=== PATIENT | male | born 1940 | race Caucasian/White ===

== ENCOUNTER 2023-03-25 12:41 | Inpatient (IN) ==
[2023-03-25] MEDS ORDERED: SODIUM CHLORIDE 0.9% 1,000 ML IV ONE ×2 (12:52→14:06)
--- NOTE | 2023-03-25 12:53 | Emergency Department Note ---
Impression & Plan Atrial fibrillation, new onset Admission ED Provider Note HPI: History obtained from EMS report. 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 Patient's arrived here to the ED to provide further history, she states that yesterday she found the patient on the bedroom floor and she believes he was trying to get out of bed. She was unable to get the patient off the floor and therefore he slept there overnight with a blanket. She was able to get the patient into a wheelchair today and she states when she went upstairs earlier this morning she came back downstairs to find him out of his wheelchair on the floor again. She states that the patient was complaining of a headache earlier in the day. Patient is unable to communicate verbally at baseline, she states he normally communicates by nodding his head and with hand gestures. Patient is noted to be DNR/DNI CODE STATUS according to his . On arrival here to the ED the patient is alert, he is tachycardic in the 120s, ROS: - Per HPI Differential Diagnosis: Urinary tract infection, pneumonia, intracranial hemorrhage, stroke, sepsis, amongst other potential pathologies. *Outpatient medications and allergy history reviewed. PE: General: Alert, patient is able to follow commands, patient is nonverbal HEENT: Normocephalic, trachea midline Eyes: Extraocular eye movement is intact, no scleral erythema Pulmonary: Clear to auscultation bilaterally, no wheezing Cardio: Tachycardic rate with irregular rhythm GI: Abdomen is soft to palpation : No suprapubic tenderness MSK: No evidence of trauma or malformation of the extremities, no edema Skin: No evidence of rash Neuro: Alert, no focal deficits, nonverbal at baseline Psychiatric: Cooperative INDEPENDENT INTERPRETATIONS: clinical research monitor: (As interpreted by myself): - An order was placed for continuous cardiac monitoring - Patient was noted to be in atrial fibrillation with a rate of 125 EKG: (As interpreted by myself): Rate: 128 Rhythm: Atrial fibrillation with RVR Intervals: Within normal limits ST changes: No ST elevation Time: 1413 Chest x-ray: (As interpreted by myself): No acute infiltrate Interventions provided in ED: -IV fluid bolus (2500 cc total) Medical Decision Making: Shortly after the patient arrived IV was established and lab work obtained, patient was placed on playground monitor. Lab work shows a leukocytosis of 14.55, hemoglobin is normal, platelet count is normal, CMP does not show any critical findings, there is a mild creatinine elevation at 1.59 with unclear baseline, lactic acid is elevated 2.8, troponin is elevated at 20.3, procalcitonin is low. Chest x-ray does not show any evidence of pneumonia, EKG per my interpretation shows evidence of atrial fibrillation with elevated rate of 128. No acute ischemic changes are noted. CT imaging of the head does not show any evidence of any acute intracranial hemorrhage, there are findings of likely chronic insult/encephalomalacia in the left frontal lobe per interpreting radiologist. No evidence of acute stroke. Patient was ordered greater than 30 cc/kg of IV fluid given leukocytosis and elevated lactic acid. Urinalysis is pending at the time of admission. Will hold on antibiotics without any known source for infection. Viral panel testing is also pending. Case was discussed with the on-call hospitalist service for [facility], patient's lab work and imaging and presentation were discussed with Monica Carroll NP, and the patient was placed for admission to the service of Dr. Knox. Consultants/Discussions held with other healthcare providers: -Hospitalist service, Dr. Knox Disposition discussion held by myself with: -Patient, at bedside and daughter at bedside Diagnosis: 1. New onset atrial fibrillation with RVR, acute 2. Leukocytosis, acute, nonspecific 3. Lactic acidosis, acute 4. Elevated troponin, acute 5. Creatinine elevation, acute, mild 6. History of neurologic condition, nonverbal 7. Ambulatory dysfunction, chronic Disposition: Admission Nilesh Aragon DO Emergency Medicine Past Med/Surg History Social History Smoking Status: Unknown if ever smoked Feels Safe at Home: Yes Allergies Allergies Allergy/AdvReac Type Severity Reaction Status Date / Time colchicine Allergy Unknown ` Verified 06/08/12 13:06 mold Allergy Unknown ` Verified 06/08/12 13:06 Home Meds Home Medications Medication Instructions Recorded Confirmed Albuterol (Ventolin) 2 puff inhalation QID 5 days ##0 04/16/09 Lisinopril (Zestril) 5 mg PO DAILY ##0 04/16/09 OMEPRAZOLE (PRILOSEC) 20 mg PO DAILY ##0 02/08/10 Simvastatin (Zocor) 40 mg PO QPM ##0 04/16/09 Tamsulosin Hcl (Flomax *) 0.4 mg PO DAILY ##0 04/16/09 [id number] UNT 50,000 unt OR WK ##0 04/18/09 Previous Rx's Medication Instructions Recorded ONDANSETRON (ZOFRAN ODT) 4 mg sublingual Q6H Nausea or 06/05/13 Vomiting ##20 Results & Data (ED) Vital Signs Vital Signs - 24 hr 03/25/23 12:55 03/25/23 13:21 03/25/23 14:00 Temperature 35.9 C L Temperature Source Rectal Pulse Rate 107 H 123 H 131 H Pulse Rate from SpO2 Sensor 92 H Respiratory Rate 19 21 Respiratory Effort / Characteristics Non-Labored Spontaneous Respiratory Depth Normal Respiratory Pattern Regular Blood Pressure 107/22 L Blood Pressure Mean 50 Pulse Oximetry 97 99 Oxygen Delivery Method Room Air Nasal Cannula Oxygen Flow Rate 2 Sepsis Recent Fever Within 48 Hours No Sepsis New/Unexplained Change in Mental Status No Sepsis Action Taken by Nursing Physician Notified 03/25/23 14:05 03/25/23 14:16 03/25/23 14:30 Temperature Temperature Source Pulse Rate 127 H 131 H 121 H Pulse Rate from SpO2 Sensor 132 H 116 H 119 H Respiratory Rate 26 H 16 25 H Respiratory Effort / Characteristics Respiratory Depth Respiratory Pattern Blood Pressure 92/77 L 104/69 89/73 L Blood Pressure Mean 82 80 78 Pulse Oximetry 99 99 94 Oxygen Delivery Method Nasal Cannula Nasal Cannula Nasal Cannula Oxygen Flow Rate 2 2 2 Sepsis Recent Fever Within 48 Hours Sepsis New/Unexplained Change in Mental Status Sepsis Action Taken by Nursing 03/25/23 14:40 Temperature Temperature Source Pulse Rate 125 H Pulse Rate from SpO2 Sensor 132 H Respiratory Rate 23 Respiratory Effort / Characteristics Respiratory Depth Respiratory Pattern Blood Pressure 109/80 Blood Pressure Mean 89 Pulse Oximetry 99 Oxygen Delivery Method Nasal Cannula Oxygen Flow Rate 2 Sepsis Recent Fever Within 48 Hours Sepsis New/Unexplained Change in Mental Status Sepsis Action Taken by Nursing Laboratory Data 03/25/23 13:00 03/25/23 13:00 Lab Results 03/25/23 Range/Units 13:00 WBC 14.55 H (4.8-10.8) K/ul RBC 5.47 (4.70-6.10) M/uL Hgb 16.0 (14.0-18.0) g/dl Hct 47.0 (42.0-52.0) % MCV 85.9 (80.0-100.0) fL MCH 29.3 (25.0-34.0) pg MCHC 34.0 (32.0-36.0) g/dL RDW Std Deviation 41.2 (36.4-46.3) fL RDW Coeff of Kerry 13.2 (11.5-14.5) % Plt Count 256 (130-400) K/uL MPV 10.1 (9.4-12.4) fL Immature Gran % (Auto) 0.3 % Neut % (Auto) 90.8 % Lymph % (Auto) 3.8 % Perry % (Auto) 4.9 % Eos % (Auto) 0.0 % Baso % (Auto) 0.2 % Neut # (Auto) 13.19 H (1.40-6.50) K/uL Lymph # (Auto) 0.56 L (1.20-3.40) K/uL Perry # (Auto) 0.72 H (0.11-0.59) K/uL Eos # (Auto) 0.00 (0.00-0.50) K/uL Baso # (Auto) 0.03 (0.00-0.20) K/uL Immature Gran # (Auto) 0.05 (0.01-0.20) K/uL Sodium 141 (136-145) mmol/L Potassium 4.5 (3.5-5.1) mmol/L Chloride 108 H (98-107) mmol/L Carbon Dioxide 24 (21-32) mmol/L Anion Gap 9 (3-11) BUN 25 H (6-23) mg/dl Creatinine 1.59 H (0.6-1.4) mg/dl Est Cr Clr Drug Dosing 37.7 ml/min Est GFR ( Amer) 45.5 ml/min Est GFR (Non-Af Amer) 39.3 ml/min BUN/Creatinine Ratio 15.7 (10-20) Glucose 80 (70-99(Fasting)) mg/dl Lactate 2.8 H* (0.4-2.0) mmol/L Calcium 10.3 (8.6-10.3) mg/dl Magnesium 2.8 H (1.7-2.4) mg/dl Total Bilirubin 1.2 H (0.2-1.0) mg/dl Direct Bilirubin 0.3 H (0-0.2) mg/dl AST 27 (13-39) U/L ALT 9 (7-52) U/L Alkaline Phosphatase 70 (34-104) U/L Troponin I High Sens 20.3 H (0-20) pg/ml Total Protein 7.1 (6.0-8.3) gm/dl Albumin 4.2 (3.4-5.0) gm/dl Procalcitonin < 0.05 (0-0.5) ng/ml Administered Medications Discontinued Medications Sodium Chloride (Nss) 1,000 mls @ 999 mls/hr IV .Q1H1M ONE Stop: 03/25/23 13:52 Last Admin: 03/25/23 14:00 Dose: 999 mls/hr Documented By: GIRISH Imaging Data Radiologist's Impression: Chest X-Ray 03/25/23 12:51 XR chest 1V portable HISTORY: Sepsis COMPARISON: Chest 06/08/2012. FINDINGS: Low lung volumes with mild elevation of the right hemidiaphragm. This remains unchanged. The heart remains borderline enlarged. No new focal lung consolidations to suggest pneumonia. No evidence for pulmonary edema. No acute fractures identified. Small bibasilar linear densities favor subsegmental atelectasis are scarring. IMPRESSION: No significant change compared to the prior study. No acute process. ACT 112: Negative or not required by law. Electronically signed by: Greg Leon M.D. 03/25/2023 2:[address] 03/25/23 12:51 CT head/brain wo con CLINICAL HISTORY: 83 years-old Male with AMS, found down. Acutely altered mental status. Acute head trauma status post fall TECHNIQUE: Multiple axial CT images of the head were obtained without contrast. A dose lowering technique was utilized adhering to the principles of ALARA. CT DOSE: 547.75 mGy.cm COMPARISON: 06/05/2013. FINDINGS: No acute intracranial hemorrhage, midline shift, intracranial mass, hydrocephalus, territorial ischemia or abnormal extra-axial collection. Involutional changes with chronic microvascular ischemic disease. There is an ill-defined hypodensity of the anterosuperior left frontal lobe on image 22 series 2 which predominantly appears to involve the white matter. Motion degraded exam. Prominent cerebellar atrophy. The calvarium is intact. Mild mucosal thickening of the ethmoid air cells. Mastoid air cells are clear. Small right posterior parietal scalp contusion. IMPRESSION: 1. Small posterior right parietal scalp contusion. No acute intracranial abnormality or calvarial fracture. 2. Involutional changes with chronic microvascular ischemic disease. 3. There is a new hypodense focus in the anterior superior left frontal lobe which is nonspecific and possibly represents encephalomalacia from a chronic insult. ACT 112: Negative or not required by law. The above report was generated using voice recognition software. It may contain grammatical, syntax or spelling errors. Electronically signed by: Prashant Salazar M.D. 03/25/2023 1:40 PM Discharge Plan Visit Data Chief Complaint: Altered Mental Status Stated Complaint: AMS, CONFUSION ED Provider: Nilesh Aragon Discharge Problem: Atrial fibrillation, new onset Forms Stand Alone Forms: My [facility] Prescriptions Prescriptions: No Action Lisinopril (Zestril) 5 MG tablet 5 mg PO DAILY Qty: 0 OMEPRAZOLE (PRILOSEC) 20 MG capsule 20 mg PO DAILY Qty: 0 Simvastatin (Zocor) 40 MG tablet 40 mg PO QPM Qty: 0 Albuterol (Ventolin) inhaler 2 puff Inhalation QID 5 Days Qty: 0 Tamsulosin Hcl (Flomax *) 0.4 MG capsule 0.4 mg PO DAILY Qty: 0 [id number] UNT 50,000 unt OR WK Qty: 0 ONDANSETRON (ZOFRAN ODT) 4 MG tablet 4 mg Sublingual Q6H Qty: 20 0RF Rx Instructions: NAUSEA Referrals Referrals: Kamari Strong MD [Primary Care Provider] -
[2023-03-25 13:32] LABS: Mean Corpuscular Hemoglobin 29.3 pg (25.0-34.0); Mean Corpuscular Volume 85.9 fL (80.0-100.0); Mean Platelet Volume 10.1 fL (9.4-12.4); Platelet Count 256 K/uL (130-400); RDW Coefficient of Variation 13.2 % (11.5-14.5); RDW Standard Deviation 41.2 fL (36.4-46.3); Red Blood Count 5.47 M/uL (4.70-6.10); White Blood Count 14.55 K/ul (4.8-10.8)
--- NOTE | 2023-03-25 13:42 | CT Scan Report ---
CT head/brain wo con CLINICAL HISTORY: 83 years-old Male with AMS, found down. Acutely altered mental status. Acute head trauma status post fall TECHNIQUE: Multiple axial CT images of the head were obtained without contrast. A dose lowering tech nique was utilized adhering to the principles of ALARA. CT DOSE: 547.75 mGy.cm COMPARISON: 06/05/2013. FINDINGS: No acute intracranial hemorrhage, midline shift, intracranial mass, hydrocephalus, territorial ischem ia or abnormal extra-axial collection. Involutional changes with chronic microvascular ischemic disea se. There is an ill-defined hypodensity of the anterosuperior left frontal lobe on image 22 series 2 which predominantly appears to involve the white matter. Motion degraded exam. Prominent cerebellar a trophy. The calvarium is intact. Mild mucosal thickening of the ethmoid air cells. Mastoid air cells are cl ear. Small right posterior parietal scalp contusion. IMPRESSION: 1. Small posterior right parietal scalp contusion. No acute intracranial abnormality or calvarial fra cture. 2. Involutional changes with chronic microvascular ischemic disease. 3. There is a new hypodense focus in the anterior superior left frontal lobe which is nonspecific and possibly represents encephalomalacia from a chronic insult. ACT 112: Negative or not required by law. The above report was generated using voice recognition software. It may contain grammatical, syntax o r spelling errors. Electronically signed by: Prashant Salazar M.D. 03/25/2023 1:40 PM
[2023-03-25 13:46] LABS: Albumin Level 4.2 gm/dl (3.4-5.0); BUN Creatinine Ratio 15.7 (10-20); Bilirubin Direct 0.3 mg/dl (0-0.2); Bilirubin,Total 1.2 mg/dl (0.2-1.0); Calcium 10.3 mg/dl (8.6-10.3); Creatinine Clr Calc Pharmacy 37.7 ml/min; Est GFR (African American) 45.5 ml/min; Est GFR (Non-African American) 39.3 ml/min; Magnesium 2.8 mg/dl (1.7-2.4); Potassium 4.5 mmol/L (3.5-5.1); Total Protein 7.1 gm/dl (6.0-8.3)
[2023-03-25 13:50] LABS: Troponin I High Sensitivity 20.3 pg/ml (0-20)
[2023-03-25 13:56] LABS: Basophils # (auto) 0.03 K/uL (0.00-0.20); Basophils % (auto) 0.2 %; Immature Granulocytes # (auto) 0.05 K/uL (0.01-0.20); Immature Granulocytes % (auto) 0.3 %; Lymphocytes # (auto) 0.56 K/uL (1.20-3.40); Lymphocytes % (auto) 3.8 %; Monocytes # (auto) 0.72 K/uL (0.11-0.59); Monocytes % (auto) 4.9 %; Neutrophils # (auto) 13.19 K/uL (1.40-6.50); Neutrophils % (auto) 90.8 %
[2023-03-25] MEDS ORDERED: METOPROLOL TARTRATE 1 MG/ML VIAL IV STA (14:25)
--- NOTE | 2023-03-25 14:28 | XRay Report ---
XR chest 1V portable HISTORY: Sepsis COMPARISON: Chest 06/08/2012. FINDINGS: Low lung volumes with mild elevation of the right hemidiaphragm. This remains unchanged. Th e heart remains borderline enlarged. No new focal lung consolidations to suggest pneumonia. No eviden ce for pulmonary edema. No acute fractures identified. Small bibasilar linear densities favor subsegm ental atelectasis are scarring. IMPRESSION: No significant change compared to the prior study. No acute process. ACT 112: Negative or not required by law. Electronically signed by: Greg Leon M.D. 03/25/2023 2:26 PM
[2023-03-25] MEDS ORDERED: SODIUM CHLORIDE 0.9% 500 ML IV ONE (14:59)
--- NOTE | 2023-03-25 15:15 | History & Physical Report ---
Date of Service March 25, 2023 Assessment & Plan (1) Weakness: (2) Fall: (3) Cerebellar degeneration: Plan: Patient is 83 y/o M with PMH cerebellar degeneration, CKD III, HTN, dyslipidemia, GERD, asthma, BPH, depression presented to ER from home with c/o being found on the floor yesterday and today T: 35.9 C, P: 107, R: 18, SBP 107, 97% on RA. WBC: 14 CT Head: Small posterior right parietal scalp contusion. No acute intracranial abnormality or calvarial fracture. Involutional changes with chronic microvascular ischemic disease. There is a new hypodense focus in the anterior superior left frontal lobe which is nonspecific and possibly represents enc ephalomalacia from a chronic insult CPK: 702 In ER given 2500ml NSS Nonambulatory at baseline PT/OT eval Fall precautions, aspiration precautions CBC, BMP (4) Elevated lactic acid level: Plan: WBC: 14 procalcitonin: <0.05 Lactate: 2.8-->2.5 Blood cultures pending CXR: No significant change compared to the prior study. No acute process. In ER given 2500ml NSS UA pending Respiratory panel pending Meets SIRS criteria. Unclear source Will start Rocephin, doxycycline empirically Trend lactate IVF CBC in am (5) Atrial fibrillation with RVR: Plan: In ER found to be in atrial fibrillation RVR on EKG Troponin: 20.3-->20.2. Likely elevated secondary to demand ischemia from In ER given metoprolol tartrate 5mg IV with HR improving to 110 Start metoprolol tartrate 12.5mg po BID Monitor on telemetry Echo Trend troponin Holding on IV heparin for now per family request, as well as patient fall risk Cardiology consult (6) CKD (chronic kidney disease), stage III: Plan: Cr: 1.59 (baseline 1.4-1.6) Monitor renal functions, avoid nephrotoxic agents when possible (7) HTN (hypertension): Plan: Hold losartan as BP's on low side currently (8) Dyslipidemia: Plan: Continue simvastatin (9) Asthma: Plan: Not on inhalers Albuterol nebs (10) GERD (gastroesophageal reflux disease): Plan: Continue PPI DVT Prophylaxis Heparin SQ DNR/DNI as per discussion with pt, pt's Follows with [facility] and Dr Strong for routine care Pt was seen and care coordinated with Dr Knox. See addendum History of Present Illness Chief Complaint: "found on floor" Primary Care Provider: Kamari Strong MD Patient is 83 y/o M with PMH cerebellar degeneration, CKD III, HTN, dyslipidemia, GERD, asthma, BPH, depression presented to ER from home with c/o being found on the floor. History obtained from patient's , daughter and outpatient review. 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 Typically is able to transfer himself out of wheelchair. In past patient was able to use his upper body strength and crawl on floor to go to the bathroom. reports yesterday patient was found on the floor. was unable to get him up so she covered with blanket. She is unsure how long he was on floor but states she thinks he slept in bed last night. States patient didn't eat yesterday. He seemed less responsive than usual per family past 2 days. He also more weak than usual. Today reports patient was in wheelchair sitting at table. She left room and went upstairs, when she returned patient patient was lying on the kitchen floor. Reports baseline intermittent cough. Denies noted choking episodes. States eats soft food as has poor dentition. states patient very shaky with eating and holding objects at baseline. Patient receiving [facility]. has not noticed any fever, vomiting, diarrhea, noted SOB, rashes. Denies history of atrial fibrillation. Patient has POLST form that states DNR/DNI, no hydration, no antibiotics, no hospitalization. Discussed with patient's and daughter. reports she wants patient to have medications, antibiotics, IVF however does not want any invasive procedures. Allergies Allergy/AdvReac Type Severity Reaction Status Date / Time colchicine Allergy Unknown ` Verified 06/08/12 13:06 mold Allergy Unknown ` Verified 06/08/12 13:06 Home Medications Medication Instructions Recorded Confirmed Type aspirin 81 mg tablet,delayed 81 mg PO DAILY 03/25/23 03/25/23 History release losartan 50 mg tablet 50 mg PO DAILY 03/25/23 03/25/23 History omeprazole 40 mg capsule,delayed 40 mg PO DAILY 03/25/23 03/25/23 History release simvastatin 40 mg tablet 40 mg PO HS 03/25/23 03/25/23 History Past Med/Surg History Medical History (Updated 03/25/23 @ 16:23 by Monica Carroll PA-C) Depression GERD (gastroesophageal reflux disease) Asthma Dyslipidemia HTN (hypertension) CKD (chronic kidney disease), stage III 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 Surgical History (Updated 03/25/23 @ 16:18 by Monica Carroll PA-C) History of inguinal hernia repair Family History (Updated 03/25/23 @ 16:21 by Monica Carroll PA-C) Other Cancer Neurological disorder Social History (Updated 03/25/23 @ 16:21 by Monica Carroll PA-C) Smoking Status: Never smoker Hx Alcohol Use: No Hx Substance Use: No Feels Safe at Home: Yes Review of Systems Review of Systems: Unobtainable due to cognitive status Physical Exam Physical Exam: PE per Dr Knox Results & Data Results & Data Vital Signs (Past 12 Hours) Vital Signs Temp Pulse Resp BP Pulse Ox O2 Del Method O2 Flow Rate 03/25/23 14:40 125 H 23 109/80 99 Nasal Cannula 2 03/25/23 14:30 121 H 25 H 89/73 L 94 Nasal Cannula 2 03/25/23 14:16 131 H 16 104/69 99 Nasal Cannula 2 03/25/23 14:05 127 H 26 H 92/77 L 99 Nasal Cannula 2 03/25/23 14:00 131 H 21 99 Nasal Cannula 2 03/25/23 13:21 123 H 03/25/23 12:55 35.9 C L 107 H 19 107/22 L 97 Room Air Laboratory Results Short CBC 03/25/23 Range/Units 13:00 WBC 14.55 H (4.8-10.8) K/ul Hgb 16.0 (14.0-18.0) g/dl Hct 47.0 (42.0-52.0) % Plt Count 256 (130-400) K/uL BMP 03/25/23 13:00 Sodium 141 Potassium 4.5 Chloride 108 H Carbon Dioxide 24 BUN 25 H Creatinine 1.59 H Glucose 80 Calcium 10.3 Cardiac Enzymes 03/25/23 Range/Units 15:04 Total Creatine Kinase 702 H (30-223) U/L Liver Function 03/25/23 Range/Units 13:00 Total Bilirubin 1.2 H (0.2-1.0) mg/dl Direct Bilirubin 0.3 H (0-0.2) mg/dl AST 27 (13-39) U/L ALT 9 (7-52) U/L Alkaline Phosphatase 70 (34-104) U/L Albumin 4.2 (3.4-5.0) gm/dl Diagnostic Findings Chest X-Ray 03/25/23 12:51 XR chest 1V portable HISTORY: Sepsis COMPARISON: Chest 06/08/2012. FINDINGS: Low lung volumes with mild elevation of the right hemidiaphragm. This remains unchanged. The heart remains borderline enlarged. No new focal lung consolidations to suggest pneumonia. No evidence for pulmonary edema. No acute fractures identified. Small bibasilar linear densities favor subsegmental atelectasis are scarring. IMPRESSION: No significant change compared to the prior study. No acute process. ACT 112: Negative or not required by law. Electronically signed by: Greg Leon M.D. 03/25/2023 2:[address] 03/25/23 12:51 CT head/brain wo con CLINICAL HISTORY: 83 years-old Male with AMS, found down. Acutely altered mental status. Acute head trauma status post fall TECHNIQUE: Multiple axial CT images of the head were obtained without contrast. A dose lowering technique was utilized adhering to the principles of ALARA. CT DOSE: 547.75 mGy.cm COMPARISON: 06/05/2013. FINDINGS: No acute intracranial hemorrhage, midline shift, intracranial mass, hydrocephalus, territorial ischemia or abnormal extra-axial collection. Involutional changes with chronic microvascular ischemic disease. There is an ill-defined hypodensity of the anterosuperior left frontal lobe on image 22 series 2 which predominantly appears to involve the white matter. Motion degraded exam. Prominent cerebellar atrophy. The calvarium is intact. Mild mucosal thickening of the ethmoid air cells. Mastoid air cells are clear. Small right posterior parietal scalp contusion. IMPRESSION: 1. Small posterior right parietal scalp contusion. No acute intracranial abnormality or calvarial fracture. 2. Involutional changes with chronic microvascular ischemic disease. 3. There is a new hypodense focus in the anterior superior left frontal lobe which is nonspecific and possibly represents encephalomalacia from a chronic insult. ACT 112: Negative or not required by law. The above report was generated using voice recognition software. It may contain grammatical, syntax or spelling errors. Electronically signed by: Prashant Salazar M.D. 03/25/2023 1:40 PM Supervising Physician Co-Signing Physician Notes History and physical exam performed by me 83 year old man with cerebellar degeneration, HTN and other medical problems who was brought in for being found on the ground. Patient is wheel chair bound, able to use upper body to get out of wheel chair He is nonverbal, able to answer by nodding sometimes Has been weak since yesterday. found him on the floor yesterday (she could not remember what time of day that was) and could not get him up to bed. Unclear if he fell or tried to crawl to bathroom as he usually does and laid there ( reported wheel chair cannot get through door so he usually crawls to the bathroom then uses bars to pull himself up) He slept most of the day yesterday. was able to get him to wheelchair to the table, then she went to get something from another room and came back and found him on the floor. No reported fevers, chills, diarrhea reported he had noted headache earlier Has chronic intermittent cough. No oxygen use at home. On exam, General: Ill appearing, in no distress, weak Eyes: PERRL, conjunctivae normal, not pale, anicteric sclerae, EOM intact bilaterally ENMT: External ear and nose normal, oropharynx normal Respiratory: Normal respiratory effort, no respiratory distress, lungs clear to auscultation, no crackles and no wheezes Cardiovascular: Irregular, tachycardia S1 S2 Gastrointestinal (Abdomen): Abdomen is not distended, soft, non-tender to palpation, no guarding, no palpable hepatosplenomegaly, normal bowel sounds Musculoskeletal: No pedal edema Neurologic: Alert, non verbal. Occasionally follows simple commands (baseline per ), moves arms Psychiatric: Alert Labs notable for WBC 14K, Cr 1.59, Lactate 2, CK 702, Trop 20 CT head small posterior right scalp contusion. No acute intracranial abnormality XR chest did not show acute abnormalities Possible fall Afib with RVR Just getting IV lopressor during eval PO lopressor started Patient is high risk fall for anticoagulation Reviewed POLST form with and daughter. maintains he wants to be DNR. She stated they are ok with IV hydration, iv meds, po meds, noninvasive testing would not want anticoagulation Cards c/s TTE PT/OT eval Considering leukocytosis, tachycardia, patient meets SIRS for possible sepsis. Elevated lactate Possible pulm source considering chronic intermittent cough) UA is not suggestive of UTI Follow up infectious workup ceft + doxy for now and deescalate as appropriate IVF I spent a total of 45 minutes coordinating, documenting and providing care for this patient excluding time spent in performance of separately billed services
[2023-03-25] MEDS ORDERED: METOPROLOL TARTRATE 50 MG TAB PO STA (15:47)
[2023-03-25 15:51] LABS: Troponin I High Sensitivity 20.2 pg/ml (0-20)
[2023-03-25] MEDS ORDERED: cefTRIAXone SODIUM 2,000 MG in DEXTROSE 5 % MINI-B 50 ML IV STA (15:58)
[2023-03-25 16:29] LABS: Appearance Urine Clear (Clear); Bilirubin Urine Negative (Negative); Blood Urine Negative (Negative); Color Urine Dark Yellow; Glucose Urine UA Negative (Negative); Ketones Urine 1+ (Negative); Leukocyte Esterase Urine Negative (Negative); Nitrite Urine Negative (Negative); Protein Urine Negative (Negative); Specific Gravity Urine 1.022 (1.000-1.030); Urobilinogen Urine Negative (Negative); pH Urine 5.5 (4.5-7.5)
[2023-03-25] MEDS ORDERED: DOXYCYCLINE HYCLATE 100 MG CAP PO STA (17:23)
[2023-03-25 17:27] LABS: Adenovirus PCR Not Detected (NotDetected); Bordetella parapertussis PCR Not Detected (NotDetected); Bordetella pertussis PCR Not Detected (NotDetected); Chlamydia pneumoniae PCR Not Detected (NotDetected); Coronavirus 229E PCR Not Detected (NotDetected); Coronavirus CoV-2 (COVID19)PCR Not Detected (NotDetected); Coronavirus HKU1 PCR Not Detected (NotDetected); Coronavirus NL63 PCR Not Detected (NotDetected); Coronavirus OC43PCR Not Detected (NotDetected); Human Metapneumovirus PCR Not Detected (NotDetected); Influenza A PCR Not Detected (NotDetected); Influenza B PCR Not Detected (NotDetected); Mycoplasma pneumoniae PCR Not Detected (NotDetected); Parainfluenza Virus 1 PCR Not Detected (NotDetected); Parainfluenza Virus 2 PCR Not Detected (NotDetected); Parainfluenza Virus 3 PCR Not Detected (NotDetected); Parainfluenza Virus 4 PCR Not Detected (NotDetected); Respiratory Syncytial VirusPCR Not Detected (NotDetected); Rhinovirus/Enterovirus PCR Not Detected (NotDetected)
[2023-03-25] MEDS ORDERED: DOXYCYCLINE HYCLATE 100 MG in DEXTROSE 5% MINI-B 100 ML IV SCH (18:15)
[2023-03-25] MEDS ORDERED: POLYETHYLENE (MIRALAX) 17 GM PACK PO PRN (18:15)
[2023-03-25] MEDS ORDERED: SODIUM CHLORIDE 0.9% 1,000 ML IV SCH (18:15)
[2023-03-25] MEDS ORDERED: ONDANSETRON INJ 2 MG/ML 2 ML VIAL IV PRN (18:15)
[2023-03-25] MEDS ORDERED: ALBUTEROL 0.083% NEBU SOLN 3 ML VIAL NEB SCH (19:00)
[2023-03-25] MEDS: DOXYCYCLINE HYCLATE 100 MG CAP PO SCH (20:54)
[2023-03-25] MEDS: METOPROLOL TARTRATE 25 MG TAB PO SCH ×2 (20:55→21:16)
[2023-03-25] MEDS: HEPARIN SOD 5,000 UNIT/0.5 ML VIAL SQ SCH (20:55)
[2023-03-25] MEDS ORDERED: LEVALBUTEROL 1.25 MG/3 ML NEB NEB PRN (20:58)
[2023-03-25] MEDS ORDERED: SIMVASTATIN 40 MG TAB PO SCH (21:00)
[2023-03-25] MEDS ORDERED: METOPROLOL TARTRATE 25 MG TAB PO SCH (21:00)
[2023-03-25] MEDS: METOPROLOL TARTRATE 1 MG/ML VIAL IV PRN (22:34)
--- OUTSIDE RECORDS SUMMARY | 2023-03-25 23:59 | External Medical Summary | Summary of Care ---
Author Name Unknown Organization [facility] Address [address] [place] [place] [address] Phone [phone] Care Team Providers Care Auto Tester Name Role Phone Ligia TURNER MD, Kamari Shell Primary Care Provider [phone] Reason for Visit * Reason Comments [facility]: Maintenance Encounter Details Date Type Department Care Team (Late st Contact Info) Description 02/27/2023 8:30 AM EST [facility] [address] [place] [address] Priya Ma, RN [address] [place] [address] Allergies Active Allergy Reactions Criticality Noted Date Comments Colchicine 06/07/2008 Mold 06/27/2002 documented as of this encounter (statuses as of 02/27/2023) Medications Medication Sig Dispensed Refills Start Date End Date Status ASPIRIN EC LOW STRENGTH TBEC 81 MG ORIndications:Othe r chest pain one by mouth daily 34 5 02/20/2000 Active loratadine (CLARITIN) 10 MG Tablet Take 1 Tablet by mouth daily as needed. 0 Active acetaminophen (TYLENOL) 500 MG Tablet Take 1 Tablet by mouth every 6 hours as needed. 0 Active vitamin b 12 (CYANOCOBALAMIN) 1000 MCG TABS Take 1 Tab by mouth daily. 100 Tab 3 09/15/2019 Active Additional Information Patient taking differently:1,000 mcg Oral Daily(AM),Taking 2500mcg M-W-F, Reported on 06/26/2022 carbamide peroxide (DEBROX) 6.5 % otic solution 5 Drops 2 times a day as needed. Use for at least 5 days in a row prn 0 Active Calcium-Vitamin D 600-125 MG-UNIT Oral Tablet Take 1 Tab by mouth daily. 30 Tab 0 05/17/2020 Active Fluticasone-Salmet brittanie 250-50 MCG/DOSE Inhalation Aerosol Powder Breath Activated (Wixela Inhub) Rinse after INHALE ONE PUFF BY MOUTH ONCE A DAY 180 Each 3 01/22/2021 Active Additional Information Patient not taking.Reported on 12/04/2022 Nitroglycerin 0.4 MG Sublingual Tablet Sublingual (Nitrostat)Indicat ions:Chronic ischemic heart disease every 5 min x 3 as needed chest pain 25 Tablet 3 08/28/2021 Active Simvastatin 40 MG Oral Tablet (Zocor)Indications :Dyslipidemia, goal LDL below 100 Take 1 Tablet by mouth at bedtime. 90 Tablet 1 09/11/2022 Active Omeprazole 40 MG Oral Capsule Delayed Release (PriLOSEC)Indicati ons:Gastroesophage al reflux disease without esophagitis TAKE ONE CAPSULE BY MOUTH TWICE A DAY 180 Capsule 1 11/07/2022 Active Losartan Potassium 50 MG Oral Tablet (Cozaar)Indication s:HTN, goal below 140/90 TAKE ONE TABLET BY MOUTH EVERY DAY 90 Tablet 1 11/07/2022 Active documented as of this encounter (statuses as of 02/27/2023) Active Problems Problem Noted Date Diagnosed Date Depression due to physical illness 01/13/2023 Last Assessment & Plan: Admits he feels sad, adamantly refuses any medication. supportive. Appetite is good. denies he has voiced any suicidal ideation. 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 DYSLIPIDEMIA, GOAL LDL BELOW 100 02/15/2009 Overview: Per Lipid Taxonomy. Last Assessment & Plan: Lipid panel checked in April 2022. Stable. -continue atorvastatin. ADVANCE DIRECTIVE INFORMATION 04/15/2005 Overview: No, Advance Directive brochure offered , patient declined. 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 Cannot ambulate--uses w/c. Good upper body strength, gets himself out of w/c and crawls on floor to bathroom and bedroom. reports this is baseline for years. + tremor--shaking with feeding self. Has portable ramp but pt refuses to leave home. Poor vision [place]. does not leave for long periods. Dgt lives across street to assist. Falls frequently, had PT in past and did not help per . Esophageal reflux Last Assessment & Plan: Stable on omeprazole HTN, goal below 140/90 Last Assessment & Plan: BP stable -continue losartan documented as of this encounter (statuses as of 02/27/2023) Resolved Problems Problem Noted Date Diagnosed Date Resolved Date Impacted cerumen of right ear 11/22/2021 10/15/2022 Last Assessment & Plan: Irrigation performed Otitis externa of right ear 11/22/2021 01/12/2023 Last Assessment & Plan: improved Chronic kidney disease, stage 3a 01/14/2021 11/19/2022 Overview: Per CKD protocol Last Assessment & Plan: GFR 55. Stable. Hypertensive kidney disease with stage 3a chronic kidney disease 12/17/2020 11/19/2022 Overview: Per CKD protocol Last Assessment & Plan: Current CKD Stage: Stage III "RED FLAG" symptoms: o Minimal urine output ("I don't pee as much as I used to") o Swelling of the legs, hands, or feet ("I have to keep my legs elevated all of the time or else they swell", "I can't wear a wedding ring anymore since starting HD because my hands are so swollen") CKD Complications: o HTN Additional Comments o Losartan 50 mg daily Prinzmetal angina 09/27/2016 09/27/2016 Hypertensive kidney disease, stage III 10/09/2014 12/20/2020 Overview: Per CKD protocol #1 Mixed dyslipidemia 9 Overview: Per Lipid Taxonomy. EXT ASTHMA W-O STAT ASTH 11/2022 documented as of this encounter (statuses as of 02/27/2023) Immunizations Name Administration Dates Next Due COVID-19 mRNA, LNP-s, No Pre serve, 2-Dose Series (Pfizer) 08/23/2020,07/26/2020 Pneumococcal Conjugate Vacc, 13 Valent (Prevnar) 09/13/2014 Pneumococcal Polysaccharide PPV23 (Pneumovax) 04/21/2005 Seasonal Influenza, PF, 6 M & above, IM , (FluLaval or Fluzone) 12/26/2019,12/17/2018,05/05/2018 Seasonal Influenza, Quadriva lent Hd (Fluzone Hd) 12/04/2022,01/13/2022 Seasonal Influenza, Split, I IV3, With Preserve, Inj 01/17/2014,02/10/2013,11/06/2011,05/2010,01/08/2010,12/13/2008,01/11/20 08,01/10/2007 12/13/2009 TD, Preservative Free 06/08/2012,04/08/2007 Varicella Zoster Vaccine (Adult) 05/19/2011 documented as of this encounter Social History Tobacco Use Types Packs/Day Years Used Date Smoking Tobacco: Never Smokeless Tobacco: Never Alcohol Use Standard Drinks/Week Comments Yes 0 (1 standard drink = 0.6 oz pur e alcohol) occ beer Sex and Gender Information Value Date Recorded Sex Assigned at Not on file Gender Identity Not on file Sexual Orientation Not on file Job Start Date Occupation Industry Not on file Not on file Not on file documented as of this encounter Last Filed Vital Signs Vital Sign Reading Time Taken Comments Blood Pressure 92/52 02/27/2023 8:42 AM EST Pulse 74 02/27/2023 8:42 AM EST Temperature 35.7 C (96.2 F) 02/27/2023 8:42 AM ES T Respiratory Rate 18 02/27/2023 8:42 AM EST Oxygen Saturation 97% 02/27/2023 8:42 AM EST Inhaled Oxygen Concentration - - Weight - - Height - - Body Mass Index - - documented in this encounter Progress Notes * Priya Ma, RN - 02/27/2023 8:35 AM EST [facility] Truck Crane Operator Helper Visit Date: 02/27/2023 Time: 8:36 AM Name: Renny Paul : 1940 Current Concerns: Pt seen for return RN visit He is primary care at home Pt has been having increased arthritic pain of right hip and down right leg - ? Sciatica Did complete course of prednisone, which reports was ineffective Xrays done and show modest OA of right hip, otherwise normal Discussed getting aspercreme with lidocaine - will try that No other concerns at this time present and provides information Physical Exam: BP 92/52 | Pulse 74 | Temp 35.7 C (96.2 F) | Resp 18 | SpO2 97% Pain 5 Physical Exam Constitutional: General: He is not in acute distress. Cardiovascular: Rate and Rhythm: Normal rate and regular rhythm. Pulses: Normal pulses. Heart sounds: Normal heart sounds. Pulmonary: Effort: Pulmonary effort is normal. Breath sounds: Normal breath sounds. Abdominal: General: Bowel sounds are normal. Palpations: Abdomen is soft. Skin: General: Skin is warm and dry. Neurological: Mental Status: He is alert. Mental status is at baseline. Problems/Symptoms: Review of Systems Constitutional: Positive for fatigue. HENT: Negative. Eyes: Negative. Respiratory: Positive for shortness of breath (ZAZUETA - at baseline). Cardiovascular: Negative. Gastrointestinal: Negative. Musculoskeletal: Positive for arthralgias and gait problem. Skin: Negative. Neurological: Positive for headaches. Psychiatric/Behavioral: Positive for confusion (at baseline). Medication Reconciliation: (See medication list) Does patient take medications as ordered: Yes Patient Well Being: PHQ2/9: No questionnaires available. No change in living situation Pt has multiple falls - he transfers self and often crawls to w/c or bathroom - has done this for years [facility]-10 Completed this Visit: Yes. [facility]-10: Reason Completed: Status post fall [facility]-10 Interventions: Fall education provided, reviewed/provided Fall brochure Advanced Care Planning: POLST. Reinforcement/Education: Educated on home safety: Create a fall proof home Clear floors of clutter, loose wires, throw rugs, and cords. Make sure halls, stairways, and entrances are well lit. Install a nightlight in your bedroom, hallway and bathroom. Install grab bars or handrails in the bathroom and on stairs. Use a non-skid tub/shower mat. Avoid climbing on a chair; instead use a step stool with a high handrail. Keep sidewalks and steps in good repair Keep steps and sidewalks free of snow and ice. Using aids to support and prevent falls If you have poor balance or have fallen in the past, consider additional support such as a cane or walker. Use a cane with good support and that is the proper length for you. Use a walker if a cane doesnt provide enough support. Avoid medications that increase the risk of falling by causing dizziness, change in sensation or slowed reflexes. Certain medicines may cause falls - blood pressure pills, heart medicines, water pills, or sleepingpills. Be sure to understand each medicine that you are taking and any side effects that may occur. Improve your balance and flexibility with muscle strengthening exercises. Ask your health care provider for some exercises that will be right for you. Reinforced safety education and fall prevention. and Reinforced medication regimen. Timing., Dosing., and Purspose. Treatment/Plan: Continue meds as prescribed/reviewed Fall precautions manages meds APAP prn for pain/discomfort Aspercreme with lidocaine for pain Home Interventions Provided: Home Intervention: Other; Evaluation Reinforced current Plan of Care, including self-management and medication regimen Patient's 'Red Flags': Cough/SOB/green or yellow mucus Increased confusion fever Patient Needs to Remember: Call [facility] at with any new or worsening health concerns or problems, red flag symptoms. Referrals Needed: Other none Follow Up: Is there cellular connectivity/connectivity in the home? Yes Does the patient have internet in the home? Yes Patient encouraged to call the intake phone number for all urgent but not emergent issues. Is the patient new to [facility] within the last 30 days? No, Assess appropriateness for upcoming telehealth visits. Cancel telehealth visits & schedule home visit with care project manager/team coach(s)as indicated. Provider is in agreement with Plan of Care: Yes Scheduled to follow up with patient in 2 months. Priya Ma RN 02/27/2023 8:36 AM documented in this encounter Plan of Treatment Upcoming Encounters Date Type Department Care Team (Late st Contact Info) Description 04/24/2023 10:00 AM EST [facility] Visit [facility] [place], [facility] [address] [facility] [place] [address] Priya Ma, RN [address] [facility] [place] [address] 11/25/2023 10:30 AM EDT Office Visit [facility] at Home [address] [place] [address] Angelica Beltran PA-C [address], [place] [phone] Health Maintenance Due Date Last Done Comments Depression Screening 1952 Zoster Vaccines (2 of 3) 07/14/2011 05/19/2011 DTaP,Tdap,and Td Vaccines (1 - Tdap) 06/09/2012 06/08/2012, 04/08/2007 Albumin/Creatinine Ratio 10/03/2017 10/03/2016, 08/07 COVID-19 Vaccine (3 - 2022-24 season) 2022 08/23/2020, 07/26/2020 GFR 07/24/2023 01/23/2023, 08/08, 04/16/2022, Additional history exists HbA1c 01/24/2024 01/23/2023, 08/09/2021 Pneumococcal Vaccine: 65+ Years Completed 09/13/2014, 04/21/2005 Influenza Vaccine (FLU shot) Completed , 01/13/2022, 12/26/2019, Additional history exists GARDASIL-HPV IMMUNIZATION SERIES Aged Out No longer eligible based on patient's age to complete this topic Hepatitis B Aged Out No longer eligi ble based on patient's age to complete this topic MENINGOCOCCAL (MENACTRA/MENVEO) Aged Out No longer eligible based on patient's age to complete this topic documented as of this encounter Medical Devices Not on filedocumented as of this encounter Advance Directives Documents on File Type Date Recorded Patient Canvas Worker Expl anation CASSY 10/13/2018 POLST Care Teams Auto Tester Relationship Specialty Start Date End Date Kamari Strong III, MD [address] [place] [address] PCP - General 09/21/01 documented as of this encounter
--- OUTSIDE RECORDS SUMMARY | 2023-03-26 | External Medical Summary | Summary of Care ---
Author Name Unknown Organization [facility] Address [address] [place] [address] Phone [phone] Care Team Providers Care Animal Geneticist Name Role Phone Ligia TURNER MD, Kamari Shell Primary Care Provider [phone] Reason for Visit * Reason Onset Date Comments Appointment 02/12/2023 Encounter Details Date Type Department Care Team (Late st Contact Info) Description 02/12/2023 Telephone [facility], [place] [address] [place] [address] Services, Scheduling [address] [place] [address] Appointment (/) Allergies Active Allergy Reactions Criticality Noted Date Comments Colchicine 06/07/2008 Mold 06/27/2002 documented as of this encounter (statuses as of 02/12/2023) Medications Medication Sig Dispensed Refills Start Date [...] Patient taking differently:1,000 mcg Oral Daily(AM),Taking 2500mcg M-W-, Reported on 06/26/2022 carbamide peroxide (DEBROX) 6.5 [...] as of this encounter (statuses as of 02/12/2023) Active Problems Problem Noted Date Diagnosed Date [...] pt refuses to leave home. Poor vision [place]. does not leave for long periods. Dgt lives across street to assist. Falls frequently, had PT in past and did not help per . Esophageal reflux Last Assessment & Plan: Stable on omeprazole HTN, goal below 140/90 Last Assessment & Plan: BP stable -continue losartan documented as of this encounter (statuses as of 02/12/2023) Resolved Problems Problem Noted Date Diagnosed Date [...] as of this encounter (statuses as of 02/12/2023) Immunizations Name Administration Dates Next Due COVID-19 mRNA, LNP-s, No Pre serve, 2-Dose Series (CinemaNow) 08/23/2020,07/26/2020 Pneumococcal Conjugate Vacc, 13 Valent (Prevnar) 09/13/2014 Pneumococcal Polysaccharide PPV23 (Pneumovax) 04/21/2005 SEASONAL INFLUENZA, PF, 6 M & Above, IM , (FLULAVAL or FLUZONE) 12/26/2019,12/17/2018,05/05/2018 Seasonal Influenza, Quadriva lent Hd (Fluzone Hd) 12/04/2022,01/13/2022 Seasonal Influenza, Split, I IV3, With Preserve, Inj 01/17/2014,02/10/2013,11/06/2011,11/0 05/2010,01/08/2010,12/13/2008,01/11/20 08,01/10/2007 12/13/2009 TD, Preservative Free 06/08/2012,04/08/2007 Varicella [...] on file documented as of this encounter Miscellaneous Notes * Telephone Encounter - Sisi Marvin OSA - 02/12/2023 11:30 AM EST calling to rs appt and we found 02/27 and she was agreeable documented in this encounter Plan of Treatment Upcoming Encounters Date Type Department Care Team (Late st Contact Info) Description 02/20/2023 4:00 PM EST [facility] Visit [facility] [address] [facility] [place] [address] Priya Ma RN [address] [place] [address] 02/27/2023 8:30 AM EST [facility] Visit [facility] [address] [facility] [place] [address] Priya Ma RN [address] [place] [address] 11/25/2023 10:30 AM EDT Office Visit [facility] [address] [place] [address] Angelica Beltran PA-C [address] [place] [address] Health Maintenance Due Date Last Done Comments Depression Screening 1952 Zoster Vaccines (2 of 3) 07/14/2011 05/19/2011 DTaP,Tdap,and Td Vaccines (1 - Tdap) 06/09/2012 06/08/2012, 04/08/2007 Albumin/Creatinine Ratio 10/04/2019 10/03/2016, 08/07 COVID-19 Vaccine (3 - 2022- season) 2022 08/23/2020, 07/26/2020 GFR 01/24/2024 01/23/2023, 08/08, 04/16/2022, Additional history exists HbA1c [...] Documents on File Type Date Recorded Patient Proofer Expl anation CASSY 10/13/2018 POLST Care Teams Animal Geneticist Relationship Specialty Start Date End Date Kamari Strong III, MD [address] [place] [address] PCP - General 09/21/01 documented as of this encounter
--- OUTSIDE RECORDS SUMMARY | 2023-03-26 | External Medical Summary ---
Author Name Unknown Address Unknown Organization [id number][facility] [address] [place] [id number] Laboratory Report Ordering Provider Test Date Status MARINO HAQ 01/23/2023 07:21:00 Final Observation Date Value Abnormality Reference (Units ) Status WBC, Total 01/23/2023 07:21:00 11.71 Above high normal 4 .00-10.80 (K/uL) Final RBC 01/23/2023 07:21:00 5.13 4.50-5.25 (M/uL) Final Hemoglobin 01/23/2023 07:21:00 15.3 14.0-16.8 (g/dL) Final HCT 01/23/2023 07:21:00 46.9 40.0-48.4 (%) Final MCV 01/23/2023 07:21:00 91.4 82.0-99.5 (fL) Final MCH 01/23/2023 07:21:00 29.8 27.0-34.0 (pg) Final MCHC 01/23/2023 07:21:00 32.6 32.0-36.0 (g/dL) Final RDW 01/23/2023 07:21:00 14.9 11.5-15.5 (%) Final Platelets 01/23/2023 07:21:00 266 140-400 (K /uL) Final MPV 01/23/2023 07:21:00 10.2 6.6-11.1 ( fL) Final Performing Location [facility]ORY [facility] [address] [place] [id number]
--- OUTSIDE RECORDS SUMMARY | 2023-03-26 | External Medical Summary | Summary of Care ---
Author Name Unknown Organization [facility] Address [address] [place] [address] Phone [phone] Care Team Providers Care Ortho/Prosthetic Aide Name Role Phone Ligia TURNER MD, Kamari Shell Primary Care Provider [phone] Reason for Visit * Reason Onset Date Comments [facility]: Maintenance 01/14/2023 Encounter Details Date Type Department Care Team (Late st Contact Info) Description 01/14/2023 Telephone [facility], [address] [phone] Services, Scheduling [address] [place] [address] [facility]: Maintenance Allergies Active Allergy Reactions Criticality Noted Date Comments Colchicine 06/07/2008 Mold 06/27/2002 documented as of this encounter (statuses as of 01/14/2023) Medications Medication Sig Dispensed Refills Start Date [...] EVERY DAY 90 Tablet 1 11/07/2022 Active predniSONE 10 MG Oral Tablet (Deltasone)Indicat ions:Sciatic pain, right Take 3 Tablets by mouth daily for 2 days, THEN 2 Tablets daily for 2 days, THEN 1 Tablet daily for 2 days, THEN 0.5 Tablets daily for 2 days. 13 Tablet 0 01/13/2023 01/21/2023 Active documented as of this encounter (statuses as of 01/14/2023) Active Problems Problem Noted Date Diagnosed Date [...] pt refuses to leave home. Poor vision [place]. does not leave for long periods. Dgt lives across street to assist. Falls frequently, had PT in past and did not help per . Esophageal reflux Last Assessment & Plan: Stable on omeprazole HTN, goal below 140/90 Last Assessment & Plan: BP stable -continue losartan documented as of this encounter (statuses as of 01/14/2023) Resolved Problems Problem Noted Date Diagnosed Date [...] as of this encounter (statuses as of 01/14/2023) Immunizations Name Administration Dates Next Due COVID-19 [...] encounter Miscellaneous Notes * Telephone Encounter - Candida Sherman OSA - 01/14/2023 12:17 PM EST Lmom for patient/family to call back. Looking to make sure it ok for Petra Ma RN to give covid booster on 02/16/23 ELIZABETH Rubin documented in this encounter Plan of Treatment Upcoming Encounters Date Type Department Care Team (Late st Contact Info) Description 01/21/2023 9:10 AM EST Laboratory Lab Mobile Phlebotomy [facility] [address] [place] [address] [facility] [place] [facility] Home Draw [address] [place] [address] 02/16/2023 12:00 PM EST [facility] Visit [facility] [address] [place] [address] Priya Ma, RN [address] [place] [address] 02/16/2023 12:30 PM EST [facility], [facility] [address] [facility] [place] [address] Priya Ma, RN [address] [place] [address] 02/17/2023 9:15 AM EST Scheduled Telephone [facility], [facility] [address] [facility] [place] [address] Coordinator, [facility] [place] [address] 11/25/2023 10:30 AM EDT Office Visit [facility] [address] [place], [place] [id number] Angelica Beltran PA-C [address] [place] [address] Health Maintenance Due Date Last Done Comments Depression Screening 1952 Zoster Vaccines (2 of 3) 07/14/2011 05/19/2011 DTaP,Tdap,and Td Vaccines (1 - Tdap) 06/09/2012 06/08/2012, 04/08/2007 Albumin/Creatinine Ratio 10/04/2019 10/03/2016, 08/07 HbA1c 08/09/2022 08/09/2021 COVID-19 Vaccine ( season) 2022 08/23/2020, 07/26/2020 GFR 08/30/2023 08/29/2022, 10/2022, 11/21/2020, Additional history exists Pneumococcal Vaccine: 65+ Years Completed 09/13/2014, 04/21/2005 [...] Documents on File Type Date Recorded Patient Commercial Cleaner Expl anation POL 10/13/2018 POLST Care Teams Ortho/Prosthetic Aide Relationship Specialty Start Date End Date Kamari Strong III, MD [address] [facility] [place] [address] PCP - General 09/21/01 documented as of this encounter
--- OUTSIDE RECORDS SUMMARY | 2023-03-26 | External Medical Summary ---
Author Name Unknown Address Unknown Organization [id number]:LAB[facility]ATORY [facility] - [address] [place] [address] Laboratory Report Ordering Provider Test Date Status MARINO HAQ 01/23/2023 07:21:00 Final Observation Date Value Abnormality Reference (Units ) Status HbA1C 01/23/2023 07:21:00 5.9 Above high normal 4. 0-5.6 (%) Final The use of HbA1c to monitor glycemic status is based on normal hemoglobin and HbA composition. This test should not be used in patients with abnormal hemoglobin that affects the half life of the red blood cell or the in vivo glycation rates. Glucose, estimated average 01/23/2023 07:21:00 123 <126 (mg/dL) Final Performing Location [facility]ORY [facility] - [address] [place] [address]
--- OUTSIDE RECORDS SUMMARY | 2023-03-26 | External Medical Summary | Summary of Care ---
Author Name Unknown Organization [facility] Address [address] [facility] [place] [address] Phone [phone] Care Team Providers Care Batch Attendant Name Role Phone Ligia TURNER MD, Kamari Shell Primary Care Provider [phone] Reason for Visit * Reason Onset Date Comments [facility]: Maintenance 01/22/2023 Encounter Details Date Type Department Care Team (Late st Contact Info) Description 01/22/2023 Telephone [facility], [facility] [address] [facility] [place] [address] [facility], Nurse [address] [place] [address] [facility]: Maintenance Allergies Active Allergy Reactions Criticality Noted Date Comments Colchicine 06/07/2008 Mold 06/27/2002 documented as of this encounter (statuses as of 01/22/2023) Medications Medication Sig Dispensed Refills Start Date [...] as of this encounter (statuses as of 01/22/2023) Active Problems Problem Noted Date Diagnosed Date [...] pt refuses to leave home. Poor vision [place]. does not leave for long periods. Dgt lives across street to assist. Falls frequently, had PT in past and did not help per . Esophageal reflux Last Assessment & Plan: Stable on omeprazole HTN, goal below 140/90 Last Assessment & Plan: BP stable -continue losartan documented as of this encounter (statuses as of 01/22/2023) Resolved Problems Problem Noted Date Diagnosed Date [...] as of this encounter (statuses as of 01/22/2023) Immunizations Name Administration Dates Next Due COVID-19 [...] encounter Miscellaneous Notes * Telephone Encounter - Giuliana Eaton RN - 01/22/2023 9:17 AM EST Received call from Shani with [employer] who states their company did the pt's x-ray on 01/17/23 but they do not have the insurance information in order to bill for the x-ray. Provided Shani with the pt's [facility] ID. Giuliana MALLOY, RN [facility] Intake Triage Coordinator [phone] documented in this encounter Plan of Treatment Upcoming Encounters Date Type Department Care Team (Late st Contact Info) Description 01/23/2023 8:20 AM EST Laboratory Lab Mobile Phlebotomy [facility] [place] [address] [place] [address] [facility] [place], [facility] Mobile Home Draw [address] [place] [address] 02/20/2023 4:00 PM EST Home Visit [facility] [address] [address] Priya Ma, RN [address] [place] [address] 11/25/2023 10:30 AM EDT Office Visit Care at Home [address] [facility] [address] Angelica Beltran PA-C [address] [facility] [place] [address] Health Maintenance Due Date Last Done Comments [...] Documents on File Type Date Recorded Patient Narcotics And Vice Detective Expl anation POLST 10/13/2018 POLST Care Teams Batch Attendant Relationship Specialty Start Date End Date Kamari Strong III, MD [address] [place] [address] PCP - General 09/21/01 documented as of this encounter
--- OUTSIDE RECORDS SUMMARY | 2023-03-26 | External Medical Summary | Summary of Care ---
Author Name Unknown Organization [facility] Address [address] [facility] [place] [address] Phone [phone] Care Team Providers Care Weapons Mechanic Name Role Phone Ligia TURNER MD, Kamari Shell Primary Care Provider [phone] Reason for Visit * Reason Onset Date Comments [facility]: Maintenance 01/19/2023 Encounter Details Date Type Department Care Team (Late st Contact Info) Description 01/19/2023 Telephone [facility], [facility] [address] [facility] [place] [address] Tamika Garay CRNP [address] [facility] [place] [address] [facility]: Maintenance Allergies Active Allergy Reactions Criticality Noted Date Comments Colchicine 06/07/2008 Mold 06/27/2002 documented as of this encounter (statuses as of 01/19/2023) Medications Medication Sig Dispensed Refills Start Date [...] as of this encounter (statuses as of 01/19/2023) Active Problems Problem Noted Date Diagnosed Date [...] pt refuses to leave home. Poor vision [place]. does not leave for long periods. Dgt lives across street to assist. Falls frequently, had PT in past and did not help per . Esophageal reflux Last Assessment & Plan: Stable on omeprazole HTN, goal below 140/90 Last Assessment & Plan: BP stable -continue losartan documented as of this encounter (statuses as of 01/19/2023) Resolved Problems Problem Noted Date Diagnosed Date [...] as of this encounter (statuses as of 01/19/2023) Immunizations Name Administration Dates Next Due COVID-19 mRNA, LNP-s, No Pre serve, 2-Dose Series (OrangeHRM) 08/23/2020,07/26/2020 Pneumococcal Conjugate Vacc, 13 Valent (Prevnar) 09/13/2014 Pneumococcal Polysaccharide PPV23 (Pneumovax) 04/21/2005 SEASONAL INFLUENZA, PF, 6 M & Above, IM , (FLULAVAL or FLUZONE) 12/26/2019,12/17/2018,05/05/2018 Seasonal Influenza, Quadriva lent Hd (Fluzone Hd) 12/04/2022,01/13/2022 Seasonal Influenza, Split, I IV3, With Preserve, Inj 01/17/2014,02/10/2013,11/06/2011,05/2010,01/08/2010,12/13/2008,01/11/20,01/10/2007 12/13/2009 TD, Preservative Free 06/08/2012,04/08/2007 Varicella Zoster [...] encounter Miscellaneous Notes * Telephone Encounter - Sanjuanita Orellana RN - 01/19/2023 12:23 PM EST Called patient, spoke to his Pt is better, taking steroid, 1 pill today & tomorrow, then 1/2 pills Thu/ No pain radiating down his leg Aware xrays negative, no fracture Pt wheelchair bound, can't stand on legs, on gets of W/C to get in/out of bed, toilet, or chair. Crawls at times also, + tremors/shaking Advised to call [facility] with any new, returning, worsening symptoms Sisi Orellana RN, BSN [facility] Intake Triage Coordinator [phone] * Telephone Encounter - Tamika Garay CRNP - 01/19/2023 12:09 PM EST No acute findings on R hip, femur/tib/fib xrays. Noted hip OA. documented in this encounter Plan of Treatment Upcoming Encounters Date Type Department Care Team (Late st Contact Info) Description 01/21/2023 9:10 AM EST Laboratory Lab Mobile Phlebotomy [facility] [address] [place] [address] [facility] [place] [facility] Mobile Home Draw [address] [place] [address] 02/20/2023 4:00 PM EST Home Visit [facility], [facility] [address] [facility] [place] [address] Priya Ma RN [address] [place] [address] 11/25/2023 10:30 AM EDT Office Visit [facility] at Home [address] [place] [address] Angelica Beltran PA-C [address] [place] [address] Health Maintenance Due Date Last Done Comments Depression Screening 1952 Zoster Vaccines (2 of 3) 07/14/2011 05/19/2011 DTaP,Tdap,and Td Vaccines (1 - Tdap) 06/09/2012 06/08/2012, 04/08/2007 Albumin/Creatinine Ratio 10/04/2019 10/03/2016, 08/07 HbA1c 08/09/2022 08/09/2021 COVID-19 Vaccine (3 - 2022- season) 2022 08/23/2020, 07/26/2020 GFR 08/30/2023 08/29/2022, [...] Documents on File Type Date Recorded Patient Office Specialist Expl anation POLST 10/13/2018 POLST Care Teams Weapons Mechanic Relationship Specialty Start Date End Date Kamari Strong III, MD [address] [place] [address] PCP - General 09/21/01 documented as of this encounter
--- OUTSIDE RECORDS SUMMARY | 2023-03-26 | External Medical Summary ---
Author Name Unknown Address Unknown Organization [id number]:[facility]ATORY [facility] [address] [place] [address] Laboratory Report Ordering Provider Test Date Status MARINO HAQ 01/23/2023 07:21:00 Final Observation Date Value Abnormality Reference (Units ) Status SYNC LEUKOCYTES IN BLOOD BY AUTOMATED COUNT 01/23/2023 07:21:00 11.71 Above high normal 4.00-10.80 (K/uL) Final Segs 01/23/2023 07:21:00 70.6 40.0-75.0 (%) Final Lymphs % 01/23/2023 07:21:00 17.3 Below low normal 18.0-42.0 (%) Final Monos 01/23/2023 07:21:00 10.6 1.0-11.0 (%) Final Eosinophils 01/23/2023 07:21:00 1.3 0.0-6.0 (%) Final Basos 01/23/2023 07:21:00 0.2 0.0-2.0 (%) Final Absolute Segs 01/23/2023 07:21:00 8.28 Above high normal 1.80-7.70 (K/uL) Final Lymphs, absolute 01/23/2023 07:21:00 2.02 1.00-4.80 (K/ul) Final Monos, Abs 01/23/2023 07:21:00 1.24 Above high normal 0.00-1.10 (K/uL) Final Eos, Abs 01/23/2023 07:21:00 0.15 0.00-0.70 (K/uL) Final Basos, Abs 01/23/2023 07:21:00 0.02 0.00-0.20 (K/uL) Final Performing Location [facility]ORY [facility] [address] [place] [address]
--- OUTSIDE RECORDS SUMMARY | 2023-03-26 | External Medical Summary ---
Author Name Unknown Address Unknown Organization [id number]:[facility] [place] [address] [place] [address] Laboratory Report Ordering Provider Test Date Status MARINO HAQ 01/23/2023 07:21:00 Final Observation Date Value Abnormality Reference (Units ) Status BUN 01/23/2023 07:21:00 20 6-20 (mg/dL) Final Creatinine 01/23/2023 07:21:00 1.4 Above high normal 0.6-1.2 (mg/dL) Final Glomerular filtration rate/1.73 sq M.predicted [Volume Rate/Area] in Serum, Plasma or Blood by Creatinine-based formula (CKD-EPI) 01/23/2023 07:21:00 52 Below low normal >=60 (mL/min) Final eGFR is calculated based on the CKD-EPI 2020 equation SODIUM 01/23/2023 07:21:00 143 135-146 (m mol/L) Final Potassium 01/23/2023 07:21:00 4.5 3.5-5.1 (m mol/L) Final Cl 01/23/2023 07:21:00 108 Above high normal 98 -107 (mmol/L) Final CO2 01/23/2023 07:21:00 28 22-32 (mmo l/L) Final Anion gap 01/23/2023 07:21:00 7 7-15 (mmol /L) Final Glucose 01/23/2023 07:21:00 91 70-120 (mg /dL) Final Albumin 01/23/2023 07:21:00 3.8 3.8-5.0 (g /dL) Final AST (Aspartate aminotransferase) 01/23/2023 07:21:00 13 10-50 (U/L) Fin al Alk Phos 01/23/2023 07:21:00 75 35-130 (U/ L) Final Bilirubin, Total 01/23/2023 07:21:00 0.8 <=1 .2 (mg/dL) Final Calcium 01/23/2023 07:21:00 9.5 8.4-10.2 ( mg/dL) Final Protein 01/23/2023 07:21:00 5.8 Below low normal 6.0 -8.3 (g/dL) Final ALT (Alanine aminotransferase) 01/23/2023 07:21:00 13 10-50 (U/L) Axel crook Performing [facility] [address] [facility] [address]
--- OUTSIDE RECORDS SUMMARY | 2023-03-26 | External Medical Summary | Summary of Care ---
Author Name Unknown Organization [facility] Address [address] [place] [address] Phone [phone] Care Team Providers Care Housekeeping Director Name Role Phone Ligia TURNER MD, Kamari Shell Primary Care Provider [phone] Reason for Visit * Reason Onset Date Comments Information 02/20/2023 Encounter Details Date Type Department Care Team (Late st Contact Info) Description 02/20/2023 Telephone [facility], [place] [address] [place] [address] Services, Scheduling [address] [place] [address] Information (//) Allergies Active Allergy Reactions Criticality Noted Date Comments Colchicine 06/07/2008 Mold 06/27/2002 documented as of this encounter (statuses as of 02/20/2023) Medications Medication Sig Dispensed Refills Start Date [...] Patient taking differently:1,000 mcg Oral Daily(AM),Taking 2500mcg -W-, Reported on 06/26/2022 carbamide peroxide (DEBROX) 6.5 [...] as of this encounter (statuses as of 02/20/2023) Active Problems Problem Noted Date Diagnosed Date [...] pt refuses to leave home. Poor vision [place]. does not leave for long periods. Dgt lives across street to assist. Falls frequently, had PT in past and did not help per . Esophageal reflux Last Assessment & Plan: Stable on omeprazole HTN, goal below 140/90 Last Assessment & Plan: BP stable -continue losartan documented as of this encounter (statuses as of 02/20/2023) Resolved Problems Problem Noted Date Diagnosed Date [...] as of this encounter (statuses as of 02/20/2023) Immunizations Name Administration Dates Next Due COVID-19 mRNA, LNP-s, No Pre serve, 2-Dose Series (Data3Sixty) 08/23/2020,07/26/2020 Pneumococcal Conjugate Vacc, 13 Valent (Prevnar) 09/13/2014 Pneumococcal Polysaccharide PPV23 (Pneumovax) 04/21/2005 Seasonal Influenza, PF, 6 M & above, IM , (FluLaval or Fluzone) 12/26/2019,12/17/2018,05/05/2018 Seasonal Influenza, Quadriva lent Hd (Fluzone Hd) 12/04/2022,01/13/2022 Seasonal Influenza, Split, I IV3, With Preserve, Inj 01/17/2014,02/10/2013,11/06/2011,1105/2010,01/08/2010,12/13/2008,01/11/20 08,01/10/2007 12/13/2009 TD, Preservative Free 06/08/2012,04/08/2007 Varicella [...] Telephone Encounter - Sisi Marvin OSA - 02/20/2023 2:36 PM EST Had call in on 02/12 to cx today's appt and rs on 02/27 and missed cx today's appt and RNCM texted me about it and we corrected as she called pat and no one was home or answered documented in this encounter Plan of Treatment Upcoming Encounters Date Type Department Care Team (Late st Contact Info) Description 02/27/2023 8:30 AM EST Home Visit [facility] at [place], [facility] [address] [facility] [place] [address] Priya Ma, RN [address] [facility] [place] [address] 11/25/2023 10:30 AM EDT [facility] [address] [facility] [address] Angelica Beltran PA-C [address] [facility] [place] [id number] Health Maintenance Due Date Last Done Comments Depression Screening 1952 Zoster Vaccines (2 of 3) 07/14/2011 05/19/2011 DTaP,Tdap,and Td Vaccines (1 - Tdap) 06/09/2012 06/08/2012, 04/08/2007 Albumin/Creatinine Ratio 10/03/2017 10/03/2016, 08/07 COVID-19 Vaccine ( season) 2022 08/23/2020, 07/26/2020 GFR 07/24/2023 01/23/2023, [...] Documents on File Type Date Recorded Patient Roastmaster Expl anation POLST 10/13/2018 POLST Care Teams Housekeeping Director Relationship Specialty Start Date End Date Kamari Strong III, MD [address] [place] [address] PCP - General 09/21/01 documented as of this encounter
--- OUTSIDE RECORDS SUMMARY | 2023-03-26 | External Medical Summary ---
Author Name Unknown Address Unknown Organization K01:[facility] [place] - [address] [place] [address] Laboratory Report Ordering Provider Test Date Status MARINO HAQ 01/23/2023 07:21:00 Final Observation Date Value Abnormality Reference (Units ) Status TSH 01/23/2023 07:21:00 1.17 0.27-4.20 (uIU/mL) Final Performing Location LABORATORY C - [address] [place] [address]
--- OUTSIDE RECORDS SUMMARY | 2023-03-26 | External Medical Summary | Summary of Care ---
Author Name Unknown Organization [facility] Address [address] [place] [facility] [place] [address] Phone [phone] Care Team Providers Care Medical Reception Specialist Name Role Phone Ligia TURNER MD, Kamari Shell Primary Care Provider [phone] Reason for Visit * Reason Onset Date Comments Information 01/13/2023 Encounter Details Date Type Department Care Team (Late st Contact Info) Description 01/13/2023 Telephone [facility], [facility] [address] [place] [address] Tamika Garay CRNP [address] [facility] [place] [address] Information Allergies Active Allergy Reactions Criticality Noted Date [...] pt refuses to leave home. Poor vision [place]. does not leave for long periods. Dgt [...] mRNA, LNP-s, No Pre serve, 2-Dose Series (DFMSim) 08/23/2020,07/26/2020 Pneumococcal Conjugate Vacc, 13 Valent (Prevnar) 09/13/2014 Pneumococcal Polysaccharide PPV23 (Pneumovax) 04/21/2005 SEASONAL INFLUENZA, PF, 6 M & Above, IM , (FLULAVAL or FLUZONE) 12/26/2019,12/17/2018,05/05/2018 Seasonal Influenza, Quadriva lent Hd (Fluzone Hd) 12/04/2022,01/13/2022 Seasonal Influenza, Split, I IV3, With Preserve, Inj 01/17/2014,02/10/2013,11/06/2011,11/05/2010,01/08/2010,12/13/2008,01/11/20 08,01/10/2007 12/13/2009 TD, Preservative Free 06/08/2012,04/08/2007 Varicella [...] encounter Miscellaneous Notes * Telephone Encounter - Paco Amin OSA - 01/14/2023 9:39 AM EST Call to [facility] and faxed orders for mobile xray R hip, femur, tib/fib to [phone], claim # [id number] * Telephone Encounter - Tamika Garay CRNP - 01/13/2023 1:24 PM EST Pt with R hip/leg pain. Please fax xray order for mobile xray R hip, femur, tib/fib. documented in this encounter Plan of Treatment Upcoming Encounters Date Type Department Care Team (Late st Contact Info) Description 01/21/2023 9:10 AM EST Laboratory Lab Mobile Phlebotomy [facility] [address] [place] [address] [facility] [place] [facility] Mobile Home Draw [address] [place] [address] 02/16/2023 12:30 PM EST [facility] Visit [facility], [facility] [address] [place] [address] Priya Ma, RN [address] [place] [address] 11/25/2023 10:30 AM EDT Office Visit [facility] at Home [address] [place] [address] Angelica Beltran PA-C [address] [place], [place] [id number] Scheduled Orders Name Type Priority Associated Diagnoses Orde r Schedule XR FEMUR MINIMUM 2 VIEWS Medical Imaging Routine Pain of right lower leg Ordered: 01/13/2023 XR TIB/FIB 2 VIEWS Medical Imaging Routine Pain of right lower leg Ordered: 01/13/2023 Health Maintenance Due Date Last Done Comments [...] Not on filedocumented as of this encounter Visit Diagnoses Diagnosis Pain of right lower leg- Primary Pain in limb documented in this encounter Advance Directives Documents on File Type Date Recorded Patient Supervisor Final Expl anation POLST 10/13/2018 POLST Care Teams Medical Reception Specialist Relationship Specialty Start Date End Date Kamari Strong III, MD [address] [facility] [place] [address] PCP - General 09/21/01 documented as of this encounter
--- OUTSIDE RECORDS SUMMARY | 2023-03-26 | External Medical Summary | Summary of Care ---
Author Name Unknown Organization [facility] Address [address] [place] [id number] Phone [phone] Care Team Providers Care Car Wash Attendant Automatic Name Role Phone Ligia TURNER MD, Kamari Shell Primary Care Provider [phone] Reason for Referral * Ancillary Services (Within 10 days (routine)) - Authorized Specialty Diagnoses / Procedures Referred By Claudia leonard Referred To Contact Bessemer Converter Blower Diagnoses Hypertensive kidney disease with stage 3a chronic kidney disease (HCC) Tamika Garay CRNP [address] [place] [address] Referral ID Status Reason Start Date Expiration Date Visits Requested Visits Authorized [id number] Authorized Ancillary Services Required 01/13/2023 999 999 Question Answer Referral Priority Within 10 days (routine) Where should this appointment be scheduled? Mario Comments Is Patient homebound? Yes All sections of this form must be filled out completely. Forms with missing or illegible information will be returned for completion. This form should not be modified in any way. Forms that have been modified will be returned. This form may not be submitted by a home health agency. It must be complete and submitted by the ordering provider. One full business day lead time is required and service will be scheduled based on the next service day for the [facility] Home Phlebotomy does not service every geographical location on a daily basis. Contact [facility] Client Services at to find out service days for a specific location. Medical Laboratory [address] [place] [id number] Delbert Becerril M.D. Director and Technology Training Associate Patient Name: Renny Paul : 1940 Sex: male Address [address] [facility] [address] Provider: Self? Kamari Strong III, MD? Diagnosis: Z71.89 Advanced care planning/counseling discussion (primary encounter diagnosis) Tests Requested Cbc, CMP, TSH, hgba1c in 1-2 weeks Reason for Visit * Reason Comments [facility]: Telehealth Encounter Details Date Type Department Care Team (Late st Contact Info) Description 01/13/2023 3:00 PM EST Telemedicine [facility], [facility] [address] [place] [address] Tamika Garay CRNP [address] [place] [address] Estela Tristan, Community Health Security Alarm Installer [address] [place] [address] [place] [id number] Cerebellar ataxia (HCC)*; Advanced care planning/counseling discussion; Sciatic pain, right; Hypertensive kidney disease with stage 3a chronic kidney disease (HCC); Mixed conductive and sensorineural hearing loss of both ears; Depression due to physical illness Allergies Active Allergy Reactions Criticality Noted Date Comments Colchicine 06/07/2008 Mold 06/27/2002 documented as of this encounter (statuses as of 01/13/2023) Medications Medication Sig Dispensed Refills Start Date [...] as of this encounter (statuses as of 01/13/2023) Active Problems Problem Noted Date Diagnosed Date [...] pt refuses to leave home. Poor vision [place]. does not leave for long periods. Dgt lives across street to assist. Falls frequently, had PT in past and did not help per . Esophageal reflux Last Assessment & Plan: Stable on omeprazole HTN, goal below 140/90 Last Assessment & Plan: BP stable -continue losartan documented as of this encounter (statuses as of 01/13/2023) Resolved Problems Problem Noted Date Diagnosed Date [...] as of this encounter (statuses as of 01/13/2023) Immunizations Name Administration Dates Next Due COVID-19 mRNA, LNP-s, No Pre serve, 2-Dose Series (iPixCel) 08/23/2020,07/26/2020 Pneumococcal Conjugate Vacc, 13 Valent (Prevnar) [...] Sign Reading Time Taken Comments Blood Pressure 120/62 01/13/2023 12:35 PM EST Pulse 62 01/13/2023 12:35 PM EST Temperature 36.4 C (97.5 F) 01/13/2023 12:[address] Respiratory Rate 20 01/13/2023 12:35 PM EST Oxygen Saturation 97% 01/13/2023 12:35 PM EST Inhaled Oxygen Concentration - - Weight - - Height - - Body Mass Index - - documented in this encounter Progress Notes * Estela Tristan [facility] Health Security Alarm Installer - 01/13/2023 5:09 PM EST Community Health Security Alarm Installer Visit Date: 01/13/2023 Time: 12:00 PM Name: Renny Paul : 1940 Referral Source: Provider Source of Information: Caregiver; Name: Rose Mary and Relationship: And patient Spoken language: [place] Patient can read in [place]: Yes. Inspector Fibrous Wallboard needed: No. COVID-19 screening completed: Yes Vitals: Vital signs completed: Yes, vital signs within normal range. BP 120/62 | Pulse 62 | Temp 36.4 C (97.5 F) | Resp 20 | SpO2 97% Condition Changes: Changes in health or social status since last visit: [facility] home visit for return telemed with [facility] provider. The patient has new concerns since last visit: Yes, patient reports right hip pain Progress towards goals since last visit: continues living in his own home Patient's Goals of Care: 1. To remain at home 2. Get ramp built 3. No falls Medications: Medication review completed? No, Does the patient have barriers to medication adherence? No. Patient reports difficulty paying for medications or might in the future: No. Telehealth: This is a telehealth visit: Yes. Type of telehealth visit: Return/Routine Visit conducted with: Physician/AP Symptoms Surveys and Evaluations: MAHC10 completed this visit: Yes. Score is 4 or more? Yes, notified Provider/Head Of Global Strategic Partnerships Last flowsheet values for MAHC10: Age 65+: 1 (01/13/2023 5:00 PM) Diagnosis (3 or more co-existing): 1 (01/13/2023 5:00 PM) Prior history of falls within 3 months: 1 (01/13/2023 5:00 PM) Incontinence: 1 (01/13/2023 5:00 PM) Visual impairment: 0 (01/13/2023 5:00 PM) Impaired functional mobility: 1 (01/13/2023 5:00 PM) Environmental hazards: 0 (01/13/2023 5:00 PM) Poly Pharmacy (4 or more prescriptions - any type): 1 (01/13/2023 5:00 PM) Pain affecting level of function: 0 (01/13/2023 5:00 PM) Cognitive impairment: 0 (01/13/2023 5:00 PM) Score - a score of 4 or more is considered at risk for fallin (01/13/2023 5:00 PM) Home Safety Does member identify any safety issues related to entering or exiting their home? No Does the patient need a wheelchair ramp to access the home? Yes - has portable eliseo to use if needed Snow/ice removal assistance available? Yes Is there adequate lighting? Yes Are there railings on stairs? Yes Do sidewalks appear to be in good repair? Yes Does member identify any safety issues related to the interior of their home? No If durable medical equipment is used, halls and doorways easy to navigate? No - wheelchair does notfit back hallway to the bedroom or bathroom. Patient lowers himself to the floor from WC and "crawls" back the hallway. reports he has been doing this for years. Are there trip hazards in the home? No Are there working smoke detectors/CO2 detectors? Yes Is a health condition present or an air quality concern that an air conditioner or other cooling device will help? No Do stairs in the home have railings? Yes - patient doesn't use stairs Is there a medical alert or phone near patient? Yes Are walkways clear and well lit? Yes Does member identify any safety issues related to utilizing or accessing the bathroom in their home? No Does bathroom have grab bars needed? No The patient reports needing help getting on and off the toilet? No Does the patient report needing help bathing? No reports patient is independent with bathing/grooming and dressing. She does not assist him. Are there any other identified issues/needs? No. If yes specify: Plan: Reinforced patient's three red flags by the care team 1. Productive cough of yellow/green sputum, SOB 2. Fever, confusion 3. Open or red areas on skin Follow Up: Patient encouraged to call the intake phone number for all urgent but not emergent issues. Scheduled to follow up with patient in as scheduled. Estela Tristan Community Health Security Alarm Installer 01/13/2023 12:00 PM Electronically signed by Estela Tristan [facility] Health Security Alarm Installer at 01/13/2023 5:16 PM EST * Tamika Garay CRNP - 01/13/2023 3:00 PM EST Images from the original note were not included. [facility] at Home Problem Oriented Charting Provider Visit Date: 01/13/2023 Time: 12:07 PM [facility] Sub-Program: Primary Care at Home [facility] Episode Start Date: Noted: 07/24/2021 Assessment and Plan #1 Cerebellar ataxia (HCC) (Primary) Assessment & Plan: Type 6 cerebeller degeneration--autosomal dominant. Cannot ambulate--uses w/c. Good upper body strength, gets himself out of w/c and crawls on floor to bathroom and bedroom. reports this is baseline for years. + tremor--shaking with feeding self. Has portable ramp but pt refuses to leave home.Poor vision [place]. does not leave for long periods. Dgt lives across street to assist. Falls frequently, had PT in past and did not help per . #2 Advanced care planning/counseling discussion #3 Sciatic pain, right - XR Hip unilat 2-3 views including ap pelvis - predniSONE; Take 3 Tablets by mouth daily for 2 days, THEN 2 Tablets daily for 2 days, THEN 1 Tablet daily for 2 days, THEN 0.5 Tablets daily for 2 days. 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 supportive. Appetite is good. denies he has voiced any suicidal ideation. Additional Medical Decision Making: Seems at baseline today. In-person visit would be preferred d/thearing and vision issues. Agreeable to plan as above. Educated on prednisone use. Agreeable to xrays. RNCM to monitor. Check-out note: [facility] scheduling--please schedule in-person visit with [place] in 3 months Scheduled appointments in the next 60 days: Future Appointments-next 60 days Date/Time Provider Specialty Dept Phone 01/13/2023 3:00 PM Estela Tristan, Community Health Security Alarm Installer; Tamika Garay CRNP [facility] [phone] 02/16/2023 12:30 PM Priya Ma RN [facility] [phone] 11/25/2023 10:30 AM Angelica Beltran PA-C Family Medicine [phone] A total of 54 minutes was spent face to face (via video-based telemedicine if designated as a telemedicine visit) Subjective Subjective Is this a Telemedicine Visit? Yes, Patient location: HOME. I was not in a hospital or clinic location. After connecting through [employer], patient was verified with two unique identifiers. Patient (or authorized legal veterans contact representative) was then informed that this was a Telemedicine visit and being conducted confidentially over secure lines. Methods to assure confidentiality were taken. Patient acknowledged consent and understanding of privacy and security of the Telemedicine visit. The patient agreed to participate. Reason For [facility] Visit: Follow-Up 3 months Current Concerns: Renny Paul is a 82 year old male seen today [facility]. PMH--anemia, cerebellar ataxia, HTN, asthma, CKD 3b Most of this info obtained from --- Today's concerns are: Uses wheelchair. W/c cannot get to bedroom or bathroom d/t narrow w/c. Crawlsinto bedroom up into bed. When gets out of bed he crawls into w/c. When in bathroom, crawls to toilet, stands using bars, etc. Leg weakness. He can move legs when sitting but cannot ambulate. Strong upper body. Has been like this for at least 5 years. He gets himself into bathtub and refuses to allow to help. Sleeping during day. Refuses to go anywhere. She has portable ramp to use with w/c of needed. Poor coordination, reports he is messy eater, loses food when feeding himself. reports generalized trembling at times. Seems to have decent gross motor strength. Poor vision, reports he cannot see anything out of R eye. Very [place]. Refuses to go anywhere for further eval. Last saw neurology in 2008--type 6 cerebeller degeneration--autosomal dominant. Had brother that had disease as well. Also with neuropathy and possibly dementia at that time noted. reports he has not seen dentist in over 50 year-had a denture that broke but he does have his own lower teeth. Able to eat, chew--cannot eat pork chops. She cuts food small and fine. He can eat sandwiches with soft rolls. Occasionally coughs with eating, reports he chokes a lot. Eats too fast. She tries to remind him to slow down. He has not had aspiration pneumonia. Falls a lot, reports some pain in the R hip. He tells the the pain is radiating down the R leg. She feels it may be sciatica Appetite is good and reports he probably actually gained some wt d;t immobility. Cannot weigh. No issues with bowel or bladder with him most of the time. Has dgt that lives across street that helps. Pt is never left alonefor prolonged periods. Very difficult to understand his speech. reports 30% of time she needs him to clarify what he is saying. Sometimes senior living memory is better than short term. Feels he is depressed but no suicidal ideation. Appetite is good. Pt did wake up briefly-reports pain in R leg, denies back pain. Responds yes or no, told he feels sad at times but refuses to consider medication. Additional Objective Objective Vitals: 01/13/23 1235 Temp: 36.4 C (97.5 F) Pulse: 62 Resp: 20 SpO2: 97% BP: 120/62 Last Weights: Wt Readings from Last 3 Encounters: 05/05/18 79.8 kg (176 lb) 09/27/16 85.1 kg (187 lb 9.6 oz) 08/20/15 83.9 kg (185 lb) Last BPs: BP Readings from Last 4 Encounters: 01/13/23 120/62 12/04/22 120/70 11/18/22 112/70 10/15/22 120/70 Physical Exam Constitutional: General: He is sleeping. Appearance: Normal appearance. Cardiovascular: Rate and Rhythm: Normal rate and regular rhythm. Pulmonary: Effort: Pulmonary effort is normal. Breath sounds: Normal breath sounds. Musculoskeletal: Right lower leg: No edema. Left lower leg: No edema. Comments: R great toe--firm lump appears on dorsal aspect base of toe, not medial aspect. Ganglion vs bunion? Difficult to see today. No pain or redness Skin: Coloration: Skin is not pale. Neurological: Mental Status: He is easily aroused. Cranial Nerves: Dysarthria present. Motor: Weakness and tremor present. Lab Review: I have reviewed the following results: BMP results Recent Labs Units 08/29/22 0712 04/16/22 0924 SODIUM - [facility] mmol/L 143 143 POTASSIUM - [facility] mmol/L 4.6 4.5 CHLORIDE - [facility] mmol/L 107 109* CO2 - [facility] mmol/L 25 21* CREATININE - [facility] mg/dL 1.6* 1.3* BUN - [facility] mg/dL 22* 15 Lipid panel results Recent Labs Units 08/29/22 0712 04/16/22 0924 CHOLESTEROL - [facility] mg/dL 126 129 LDL CHOLESTEROL (CALCULATED) - [facility] mg/dL 59 68 HDL CHOLESTEROL - [facility] mg/dL 40 42 TRIGLYCERIDES - [facility] mg/dL 134 95 CBC results Recent Labs Units 08/29/22 0712 04/16/22 0924 WBC AUTO - [facility] K/uL 8.19 9.55 HGB - [facility] g/dL 16.2 14.9 HCT - [facility] % 50.9* 45.8 PLATELET AUTO - [facility] K/uL 233 243 HbA1c results Recent Labs Units 08/09/21 0724 HEMOGLOBIN A1C - [facility] % 5.7* TSH results No results for input(s): "TSH" in the last 55918 hours. Vitamin D results No results for input(s): "25OHVITAMIND" in the last 83901 hours. Hepatic panel results No results for input(s): "PROT", "ALB", "TBIL", "ALKP", "AST", "ALT" in the last 28986 hours. Protein/cr ratio results No results for input(s): "PROCRRATIO" in the last 86791 hours. Medication Review "Bottles Out" medication review not performed today Mobility Evaluation: MAHC10 Assessment: Assistive Devices Used in the Home: Manual Wheelchair SDoH: NO SOCIAL DETERMINATE NEEDS IDENTIFIED Advance Care Planning Advance Care Planning Obrien Information: Aligning Care With What Matters Most: After reviewing the preceding "Discerning What Matters Most" conversation, the following decisions were discussed: Interventions/Choices:: CPR; Intubation/mechanical ventilation; Non-invasive ventilation or BIPAP; Antibiotic therapy; Artificial nutrition; IV hydration; Blood transfusion; Dialysis (04/14/2022 10:38 AM) CPR decision: : Declines CPR (04/14/2022 10:38 AM) Intubation/Mechanical Ventilation decision: : Declines Intubation/mechanical ventilation (04/14/2022 10:38 AM) Non-invasive ventilation or BIPAP decision: : Patient chooses non-invasive ventilation. Select interventions below (04/14/2022 10:38 AM) Non-Invasive Ventilation Interventions:: Oxygen only (04/14/2022 10:38 AM) Antibiotic therapy decision: : Patient chooses Antibiotic therapy (04/14/2022 10:38 AM) Artificial nutrition decision: : Declines Artificial nutrition (04/14/2022 10:38 AM) IV hydration decision: : Declines IV hydration (04/14/2022 10:38 AM) Blood transfusion decision: : Patient chooses Blood transfusion (04/14/2022 10:38 AM) Dialysis decision: : Patient chooses Dialysis (04/14/2022 10:38 AM) Source: Content from [employer] Program DEANA Horn 8:34 AM *Communication sent to PCP (via [facility] if non[facility]), [facility] Care Team members,relevant Specialty Care Physicians* documented in this encounter Miscellaneous Notes * Assessment & Plan Note - Tamika Garay CRNP - 01/13/2023 1:30 PM EST Associated Problem(s): Depression due to physical illness Admits he feels sad, adamantly refuses any medication. supportive. Appetite is good. denies he has voiced any suicidal ideation. 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 Cannot ambulate--uses w/c. Good upper body strength, gets himself out of w/c and crawls on floor to bathroom and bedroom. reports this is baseline for years. + tremor--shaking with feeding self. Has portable ramp but pt refuses to leave home.Poor vision [place]. does not leave for long periods. Dgt lives across street to assist. Falls frequently, had PT in past and did not help per . * ACP (Advance Care Planning) - Tamika Garay CRNP - 01/13/2023 12:48 PM EST Patient-centered Communication 01/13/2023 The patient/surrogate voluntarily agreed to participate in advance care planning discussion. They were advised that this is a separate service which may incur out of pocket cost in the form of copayment and/or deductibles. Location: Home Individual(s) present for conversation: Patient and Spouse Decisions Synopsis SmartLink Most Recent Value Past ~10 years 04/14/2022 10:38 Decisions CPR decision: Declines CPR 04/14/2022 Declines CPR Intubation/Mechanical Ventilation decision: Declines Intubation/mechanical ventilation 04/14/2022 Declines Intubation/mechanical ventilation Non-invasive ventilation or BIPAP decision: Patient chooses non-invasive ventilation. Select interventions below 04/14/2022 Patient chooses non-invasive ventilation. Select interventions below Non-Invasive Ventilation Interventions: Oxygen only 04/14/2022 Oxygen only Antibiotic therapy decision: Patient chooses Antibiotic therapy 04/14/2022 Patient chooses Antibiotic therapy Artificial nutrition decision: Declines Artificial nutrition 04/14/2022 Declines Artificial nutrition IV hydration decision: Declines IV hydration 04/14/2022 Declines IV hydration Blood transfusion decision: Patient chooses Blood transfusion 04/14/2022 Patient chooses Blood transfusion Lab draw decision: Patient chooses Lab draws 09/25/2021 Transport decision: Declines Transport 09/25/2021 Dying at home decision: Patient chooses Dying at home 09/25/2021 Dialysis decision: Patient chooses Dialysis 04/14/2022 Patient chooses Dialysis Additional Comments Synopsis SmartLink Most Recent Value Past ~10 years 04/14/2022 10:38 Additional Comments Additional Comments: wishes for comfort measures only, POLST in home 04/14/2022 wishes for comfort measures only, POLST in home Discerning What Matters Most to the Patient: Synopsis SmartLink Most Recent Value Past ~10 years 01/13/2023 12:47 Discerning What Matters Most to the Patient In their own words, patient's UNDERSTANDING of their illness is: per , nothing can help, progressive but will not kill you. of something else. 01/13/2023 per , nothing can help, progressive but will not kill you. of something else. Their current SYMPTOMS include: Depression 01/13/2023 Depression They say their illness has CHANGED THEIR LIFE by: Less enjoyment (quality of life) 08/14/2021 The patient thinks COMPLICATIONS in the future may be: More fatigue 08/14/2021 Was PROGNOSIS discussed? Yes 01/13/2023 Yes Prognosis was discussed today as likely to live: Several years 01/13/2023 Several years The patient's HOPES are: Maintain current functional abilities;Avoid further hospitalization 12/25/2021 The patient defines LIVING WELL as: being in his own home 08/14/2021 The patient considers these as 'UNACCEPTABLE OUTCOMES': "Being a vegetable" (define below);Prolonged hospital stay (define below);Prolonged mechanical ventilation (define below) 12/25/2021 Source: Content from [employer] Program Aligning Care With What Matters Most: Synopsis SmartLink Most Recent Value Past ~10 years 04/14/2022 10:38 Aligning Care With What Matters Most Interventions/Choices: CPR;Intubation/mechanical ventilation;Non-invasive ventilation or BIPAP;Antibiotic therapy;Artificial nutrition;IV hydration;Blood transfusion;Dialysis 04/14/2022 CPR;Intubation/mechanical ventilation;Non-invasive ventilation or BIPAP;Antibiotic therapy;Artificial nutrition;IV hydration;Blood transfusion;Dialysis Rationale for Decisions Source: Content from [employer] Program 20 minutes spent in direct [id number] discussion today, DEANA Horn documented in this encounter Plan of Treatment Upcoming Encounters Date Type Department Care Team (Late st Contact Info) Description 01/21/2023 9:10 AM EST Laboratory Lab Mobile Phlebotomy [facility] [address] [place] [address] [facility] Mobile Home Draw [address] [place] [address] 02/16/2023 12:30 PM EST Home Visit [facility] at [facility] [address] [facility] [place] [address] Priya Ma RN [address] [facility] [place] [address] 11/25/2023 10:30 AM EDT Office Visit [facility] [address] [place] [address] Angelica Beltran PA-C [address] [place] [address] Scheduled Orders Name Type Priority Associated Diagnoses Orde r Schedule XR HIP UNILAT 2-3 VIEWS INCLUDING AP PELVIS Medical Imaging Routine Sciatic pain, right Ordered: 01/13/2023 COMPREHENSIVE METABOLIC PANEL Lab Routine Hypertensive kidney disease with stage 3a chronic kidney disease (HCC) Expected: 01/13/2023 (Approximate), Expires: 01/13/2024 TSH WITH FREE T4 IF INDICATED Lab Routine Hypertensive kidney disease with stage 3a chronic kidney disease (HCC) Expected: 01/13/2023 (Approximate), Expires: 01/13/2024 HEMOGLOBIN A1C Lab Routine Hypertensive kidney disease with stage 3a chronic kidney disease (HCC) Expected: 01/13/2023 (Approximate), Expires: 01/13/2024 CBC WITH WBC DIFFERENTIAL Lab Routine Hypertensive kidney disease with stage 3a chronic kidney disease (HCC) Expected: 01/13/2023 (Approximate), Expires: 01/14/2024 Scheduled Referrals Name Type Priority Associated Diagnoses Orde r Schedule HOME PHLEBOTOMY REFERRAL OP Referral Within 10 days (routine) Hypertensive kidney disease with stage 3a chronic kidney disease (HCC) Ordered: 01/13/2023 Health Maintenance Due Date Last Done Comments Depression Screening 1952 Zoster Vaccines (2 of 3) 07/14/2011 05/19/2011 DTaP,Tdap,and Td Vaccines (1 - Tdap) 06/09/2012 06/08/2012, 04/08/2007 Albumin/Creatinine Ratio 10/04/2019 10/03/2016, 08/07 HbA1c 08/09/2022 08/09/2021 COVID-19 Vaccine (3 - season) 2022 08/23/2020, 07/26/2020 GFR 08/30/2023 08/29/2022, [...] as of this encounter Visit Diagnoses Diagnosis Cerebellar ataxia (HCC)- Primary Other cerebellar ataxia Advanced care planning/counseling discussion Other specified counseling Sciatic pain, right Hypertensive kidney disease with stage 3a chronic kidney disease (HCC) 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
--- OUTSIDE RECORDS SUMMARY | 2023-03-26 | External Medical Summary | Summary of Care ---
Author Name Unknown Organization [facility] Address [address] [place] [address] Phone [phone] Care Team Providers Care Art Display Maker Name Role Phone Ligia TURNER MD, Kamari Shell Primary Care Provider [phone] Reason for Visit * Reason Onset Date Comments [facility]: Maintenance 01/14/2023 Encounter Details Date Type Department Care Team (Late st Contact Info) Description 01/14/2023 Telephone [facility], [address] [phone] Services, Scheduling [address] [place] [address] [facility]: Maintenance Allergies Active Allergy Reactions Criticality Noted Date Comments Colchicine 06/07/2008 Mold 06/27/2002 documented as of this encounter (statuses as of 01/15/2023) Medications Medication Sig Dispensed Refills Start Date [...] as of this encounter (statuses as of 01/15/2023) Active Problems Problem Noted Date Diagnosed Date [...] pt refuses to leave home. Poor vision [place]. does not leave for long periods. Dgt lives across street to assist. Falls frequently, had PT in past and did not help per . Esophageal reflux Last Assessment & Plan: Stable on omeprazole HTN, goal below 140/90 Last Assessment & Plan: BP stable -continue losartan documented as of this encounter (statuses as of 01/15/2023) Resolved Problems Problem Noted Date Diagnosed Date [...] as of this encounter (statuses as of 01/15/2023) Immunizations Name Administration Dates Next Due COVID-19 [...] encounter Miscellaneous Notes * Telephone Encounter - Angelica Barrow OSA - 01/15/2023 9:34 AM EST Family called back and they do not want the covid booster , made Candida Sherman aware. Canceled the booster ELIZABETH Arrington * Telephone Encounter - Candida Sherman OSA - 01/14/2023 12:17 PM EST Lmom for patient/family to call back. Looking to make sure it ok for Petra Ma RN to give covid booster on 02/16/23 ELIZABETH Rubin documented in this encounter Plan of Treatment Upcoming Encounters Date Type Department Care Team (Late st Contact Info) Description 01/21/2023 9:10 AM EST Laboratory Lab [place] [facility] [address] [place] [address] [facility], [facility] Mobile Home Draw [address] [place] [address] 02/16/2023 12:30 PM EST Home Visit [facility], 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
--- OUTSIDE RECORDS SUMMARY | 2023-03-26 00:01 | External Medical Summary | Summary of Care ---
Author Name Unknown Organization [facility] Address [address] [place] [address] Phone [phone] Care Team Providers Care Quality Rep Name Role Phone Ligia TURNER MD, Debora Shell Primary Care Provider [phone] Reason for Referral * Evaluate & Treat - Unlimited Visits (Within 30 days (routine)) - Authorized Specialty Diagnoses / Procedures Referred By Claudia leonard Referred To Contact Dietitian / Nutrition Services Diagnoses Anemia due to vitamin B12 deficiency, unspecified B12 deficiency type Angelica Beltran PA-C [address] [place] [address] Referral ID Status Reason Start Date Expiration Date Visits Requested Visits Authorized [id number] Authorized Specialty Services Required 11/19/[phone] Question Answer Referral Priority Within 30 days (routine) What condition is the patient being seen for? 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); Cerebellar ataxia (HCC); Cerebellar atrophy (HCC); Chronic ischemic heart disease, unspecified; DYSLIPIDEMIA, GOAL LDL BELOW 100; Gastroesophageal reflux disease without esophagitis; HTN, goal below 140/90; IDIO PERIPH NEURPTHY NOS; Prediabetes; Vitamin D deficiency; Wheelchair dependence; At risk for falls; Irregular heart rhythm; Stage 3b chronic kidney disease (CKD) (HCC); Anemia due to vitamin B12 deficiency, unspecified B12 deficiency type; Internal hemorrhoids; Diverticulosis of large intestine without hemorrhage; Atelectasis; Osteoarthritis of multiple joints, unspecified osteoarthritis type; Mixed conductive and sensorineural hearing loss of both ears Allergies Active Allergy Reactions Severity Noted Date Comments Colchicine 06/07/2008 Mold 06/27/2002 documented as of this encounter (statuses as of 11/19/2022) Medications Medication Sig Dispensed Refills Start Date [...] A DAY 180 Each 3 01/22/2021 Active Nitroglycerin 0.4 MG Sublingual Tablet Sublingual (Nitrostat)Indicat [...] as of this encounter (statuses as of 11/19/2022) Active Problems Problem Noted Date At risk for falls 11/19/2022 Irregular heart rhythm 11/19/2022 Stage 3b chronic kidney disease (CKD) Anemia due to vitamin B12 deficiency Diverticulosis of large intestine withou t hemorrhage 11/19/2022 Internal hemorrhoids 11/19/2022 Atelectasis 11/19/2022 Osteoarthritis of multiple joints 2022 Mixed conductive and sensorineural heari ng loss of both ears 11/19/2022 Wheelchair dependence 10/15/2022 Last Assessment & Plan: Cerebellar ataxia is progressing, does not walk, will army crawl to bed and bathroom Chronic ischemic heart disease, unspecif ied 04/10/2022 Last Assessment & Plan: No angina -continue losartan, aspirin, atorvastatin Prediabetes 12/16/2021 Overview: Per Prediabetes protocol Otitis externa of right ear 11/22/2021 Last Assessment & Plan: improved BPH without obstruction/lower urinary tr act symptoms 05/27/2018 Vitamin D deficiency 05/27/2018 Moderate persistent asthma without compl ication 05/05/2018 Last Assessment & Plan: Not using advair. DYSLIPIDEMIA, GOAL LDL BELOW 100 009 Overview: Per Lipid Taxonomy. Last Assessment & Plan: Lipid panel checked in April 2022. Stable. -continue atorvastatin. ADVANCE DIRECTIVE INFORMATION 04/15/2005 Overview: No, Advance Directive brochure offered , patient declined. IDIO PERIPH NEURPTHY NOS 04/15/2005 Cerebellar ataxia 04/15/2005 Last Assessment & Plan: Hereditary, degenerative progressive disease, hereditary Cant walk, uses a wheelchair Can't feed himself Can take a bath, just sits in the tub Upper body strength is good Esophageal reflux Last Assessment & Plan: Stable on omeprazole HTN, goal below 140/90 Last Assessment & Plan: BP stable -continue losartan documented as of this encounter (statuses as of 11/19/2022) Resolved Problems Problem Noted Date Resolved Date Impacted cerumen of right ear 11/22/2021 Last Assessment & Plan: Irrigation performed Chronic kidney disease, stage 3a 01/14/2021 11/19/2022 [...] 09/27/2016 09/27/2016 Hypertensive kidney disease, stage III 5 12/20/2020 Overview: Per CKD protocol #1 Mixed dyslipidemia 02/15/2009 Overview: Per Lipid Taxonomy. EXT ASTHMA W-O STAT ASTH 023 documented as of this encounter (statuses as of 11/19/2022) Immunizations Name Administration Dates Next Due COVID-19 mRNA, LNP-s, No Pre serve, 2-Dose Series (Pfizer) 08/23/2020,07/26/2020 Pneumococcal Conjugate Vacc, 13 Valent (Prevnar) 09/13/2014 Pneumococcal Polysaccharide PPV23 (Pneumovax) 04/21/2005 Seasonal Influenza, PF, 6 mo ns & Above, IM , (Flulaval) 12/26/2019,12/17/2018,05/05/2018 Seasonal Influenza, Quadriva lent Hd (Fluzone Hd) 01/13/2022 Seasonal Influenza, Split, I IV3, With Preserve, Inj 01/17/2014,02/10/2013,11/06/2011,05/2010,01/08/2010,12/13/2008,01/11/20 08,01/10/2007 12/13/2009 TD, Preservative Free 06/08/2012,04/08/2007 Varicella Zoster Vaccine (Adult) 05/19/2011 documented as of this encounter Social History Tobacco Use Types Packs/Day Years Used Date Smoking Tobacco: Never Smokeless Tobacco: Never Alcohol Use Standard Drinks/Week Comments Yes 0 (1 standard drink = 0.6 oz pur e alcohol) occ beer Sex Assigned at Date Recorded Not on file Job Start Date Occupation Industry Not on file Not on file Not on file documented as of this encounter Last Filed Vital Signs Vital Sign Reading Time Taken Comments Blood Pressure 112/70 11/18/2022 10:20 AM EDT Pulse 74 11/18/2022 10:20 AM EDT Temperature 36 C (96.8 F) 11/18/2022 10:20 AM EDT Respiratory Rate 18 11/18/2022 10:20 AM EDT Oxygen Saturation 94% 11/18/2022 10:20 AM EDT Inhaled Oxygen Concentration - - Weight - - Height - - Body Mass Index - - documented in this encounter Progress Notes * Angelica Beltran PA-C - 11/18/2022 10:30 AM EDT Images from the original note were not included. ANNUAL HEALTH RISK ASSESSMENT [facility] [address] [facility] [address] Patient Name: Renny Paul : 1940 Date of Assessment: 11/18/2022 Gender: Male PCP: [place] [address] [phone] Extended Emergency Contact Information Primary Emergency Contact: NABOR PAUL Relation: Spouse HRA Intake Documentation: Advance Care Planning: Advance Directive Type: Living Will and Medical Power of Agronomy Location Manager Advance Directive Date: 2018 Medical Adherence: Patient is able to obtain all of her medications? Yes Patient takes medications as prescribed? Yes Patient uses a pill box? No Admissions (within the last year): Not Applicable Hospital ER within 30 days: No Health Maintenance Last physical exam: 07/16/22 Does patient see provider regularly? [facility] PCP at home Spirometry: 2009 Dental Exam: No Other Test(s) - No time frame specified Colonoscopy 2004 Findings: A few small-mouthed diverticula were found in the sigmoid colon. Internal, non-bleeding, small hemorrhoids were found during retroflexion. Impression: - Diverticulosis. - Internal hemorrhoids were found. - The exam was otherwise normal to the cecum. Recommendation: - Use fiber, for example Citrucel, Fibercon, Konsyl or Metamucil Tonny Galicia MD Narrative & Impression EXAM SHOULDER, COMPLETE MINIMUM OF 2 VIEWS; HUMERUS, MINIMUM OF 2 VIEWS; CLAVICLE, COMPLETE-08/20/2015 12:40 PM; 08/20/2015 12:41 PM HISTORY Fall. TECHNIQUE Four views of the right shoulder, two views of the right humerus, and 2 dedicated views of the right clavicle were obtained. COMPARISON Chest radiographs dated February 09, 2009. FINDINGS Normal alignment. Mild glenohumeral osteoarthritis. Moderate acromioclavicular osteoarthritis. No fracture identified. Cortical bone island noted in the base of the acromion process. No additional focal osseous lesion identified. Multilevel degenerative changes in the visualized spine. IMPRESSION 1. No acute fracture or malalignment identified. 2. Mild glenohumeral and moderate acromioclavicular osteoarthritis. Authenticated By Authenticating Date Authenticating Time Reading Providers(s) FADIA CHAIDEZ MD 08-20-2015 12:48 FADIA CHAIDEZ MD Cultural Needs: Preferred Language: irish Orthodoxy/Cultural Barriers Identified: no Patient and Caregiver Support System: Patient lives: with a spouse Means of Transportation: Family transports Patient lives in: Two Story - Only livers on the first floor Functional Status and ADL Skills: Ambulation: Wheelchair Dressing: Gets clothes and dresses without any assistance except for tying shoes: Independent Repositioning (bed or chair): Bed Status: Not applicable Able to move freely in chair or bed including turning over: Independent Transfers: Independent Toileting: Goes to bathroom, uses toilet, arranges clothes and returns without any assistance: Independent Continence status: continent of bladder and continent of bowel Feeding: Self Bathing: Self; bathes hand rails in place Requires none assistance with ADLs. DME Vendor Name: N/A Fall Risk Assessment: Fall risk factors present. History of falls within the past 12 months Uses assistive devices Balance or gait disturbances Older than age 70 Omd-Aw-wgg-Go Test: Not performed. Fall risk Nutritional Health Checklist: Changed food due to illness or condition: No (0 pts) Eat fewer than 2 meals per day: No (0 pts) Eat few fruits veggies or milk products: Yes (2 pts) 3 or more drinks or beer, liquor, wine daily: No (0 pts) Tooth or mouth problem: Yes (2 pts) Not enough money to purchase food: No (0 pts) Eat alone: No (0 pts) 3 or more medications taken per day: Yes (2 pts) Weight change of 10 lbs. In 6 months: No (0 pts) Not always able to shop, cook or feed self: Yes (2 pts) Total points: 8 Nutritional Health Score & Recommendation: 6 or more: High nutritional risk Depression Screening: PHQ2 Depression Screening Measure Rehab initial measurement Rehab discharge measurement 1. Little interest or pleasure in doing things 1 - several days 2. Feeling down, depressed, or hopeless 1 - several days PHQ-2 Total (sum of all above): 2 1. Feeling nervous, anxious or on edge not at all 2. Not being able to stop or control worrying not at all JENNIFER-2 Total (sum of all above): 0 Social Determinants of Health Screening: SDoH Screening Tool Social Determinants of Health Tobacco Use: Low Risk Smoking Tobacco Use: Never Smokeless Tobacco Use: Never Passive Exposure: Not on file Alcohol Use: Not on file Financial Resource Strain: Not on file Food Insecurity: Not on file Transportation Needs: Not on file Physical Activity: Not on file Stress: Not on file Social Connections: Not on file Intimate Partner Violence: Not on file Depression: Not on file Housing Stability: Not on file Community Resources: Community Resources: Not Applicable Potential Resource Needs from Benefits Identified: No HRA Provider Assessment Documentation: Objective Past Medical History: Diagnosis Date Asthma, allergic Cerebellar ataxia in diseases classified elsewhere ([facility]) Esophageal reflux HTN, goal below 140/90 Mixed dyslipidemia Prinzmetal angina ([facility]) Patient Active Problem List Diagnosis Code Esophageal reflux K21.9 HTN, goal below 140/90 I10 ADVANCE DIRECTIVE INFORMATION IDIO PERIPH NEURPTHY NOS G60.9 Cerebellar ataxia ([facility]) G11.9 DYSLIPIDEMIA, GOAL LDL BELOW 100 E78.5 Moderate persistent asthma without complication J45.40 BPH without obstruction/lower urinary tract symptoms N40.0 Vitamin D deficiency E55.9 Otitis externa of right ear H60.91 Prediabetes R73.03 Chronic ischemic heart disease, unspecified I25.9 Wheelchair dependence Z99.3 At risk for falls Z91.81 Irregular heart rhythm I49.9 Stage 3b chronic kidney disease (CKD) ([facility]) N18.32 Anemia due to vitamin B12 deficiency D51.9 Diverticulosis of large intestine without hemorrhage K57.30 Internal hemorrhoids K64.8 Atelectasis J98.11 Osteoarthritis of multiple joints M15.9 Mixed conductive and sensorineural hearing loss of both ears H90.6 Family History Problem Relation Age of Onset Cancer Mother lymphoma Heart Disorder Father No Past Hx Daughter Neurological Disorder Daughter restless legs Review of patient's allergies indicates: Allergen Reactions Colchicine Mold Current Outpatient Medications Medication Sig Dispense Refill ASPIRIN EC LOW STRENGTH TBEC 81 MG OR one by mouth daily 34 5 loratadine (CLARITIN) 10 MG Tablet Take 1 Tablet by mouth daily as needed. acetaminophen (TYLENOL) 500 MG Tablet Take 1 Tablet by mouth every 6 hours as needed. vitamin b 12 (CYANOCOBALAMIN) 1000 MCG TABS Take 1 Tab by mouth daily. (Patient taking differently:Take 1 Tablet by mouth in the morning. Taking 2500mcg -W-.) 100 Tab 3 carbamide peroxide (DEBROX) 6.5 % otic solution 5 Drops 2 times a day as needed. Use for at least 5days in a row prn Calcium-Vitamin D 600-125 MG-UNIT Oral Tablet Take 1 Tab by mouth daily. 30 Tab 0 Fluticasone-Salmeterol 250-50 MCG/DOSE Inhalation Aerosol Powder Breath Activated (Wixela Inhub) Rinse after INHALE ONE PUFF BY MOUTH ONCE A DAY 180 Each 3 Nitroglycerin 0.4 MG Sublingual Tablet Sublingual (Nitrostat) every 5 min x 3 as needed chest pain 25 Tablet 3 Simvastatin 40 MG Oral Tablet (Zocor) Take 1 Tablet by mouth at bedtime. 90 Tablet 1 Omeprazole 40 MG Oral Capsule Delayed Release (PriLOSEC) TAKE ONE CAPSULE BY MOUTH TWICE A DAY 180 Capsule 1 Losartan Potassium 50 MG Oral Tablet (Cozaar) TAKE ONE TABLET BY MOUTH EVERY DAY 90 Tablet 1 No current facility-administered medications for this visit. Past Surgical History: Procedure Laterality Date REPAIR INITIAL INGUINAL HERNIA REDUCIBLE AGE 5 OR MORE right Immunization History Administered Date(s) Administered COVID-19 mRNA, LNP-s, No Preserve, 2-Dose Series ([employer]) 07/26/2020, 08/23/2020 Pneumococcal Conjugate Vacc, 13 Valent (Prevnar) 09/13/2014 Pneumococcal Polysaccharide PPV23 (Pneumovax) 04/21/2005 Seasonal Influenza, PF, 6 mons & Above, IM , (Flulaval) 05/05/2018, 12/17/2018, 12/26/2019 Seasonal Influenza, Quadrivalent Hd (Fluzone Hd) 01/13/2022 Seasonal Influenza, Split, IIV3, With Preserve, Inj 01/10/2007, 01/11/2008, 12/13/2008, 01/08/2010,01/09/2011, 11/06/2011, 02/10/2013, 01/17/2014 TD, Preservative Free 04/08/2007, 06/08/2012 Varicella Zoster Vaccine (Adult) 05/19/2011 Preventative Plan: Diabetes (Fasting plasma glucose every 3 years): Hemoglobin AIC Results: Lab Results Component Value Date/Time HEMOGLOBIN A1C - [facility] 5.7 (H) 08/09/2021 07:24 AM Lipid Testing (Every 5 years): Lipid Panel Results: Results for orders placed or performed in visit on 08/27/22 LIPID PANEL WITHOUT DIRECT LDL Result Value Ref Range Triglycerides 134 <=174 mg/dL Cholesterol 126 <200 mg/dL HDL Cholesterol 40 >39 mg/dL Non-HDL Cholesterol 86 <=159 mg/dL LDL Cholesterol 59 <=129 mg/dL Results for orders placed or performed in visit on 04/16/22 LIPID PANEL WITH DIRECT LDL IF TG IS HIGH Result Value Ref Range Triglycerides 95 <=174 mg/dL Cholesterol 129 <200 mg/dL HDL Cholesterol 42 >39 mg/dL Non-HDL Cholesterol 87 <=159 mg/dL LDL Cholesterol 68 <=129 mg/dL Colonoscopy or other screening: see above Health Maintenance Topic Date Due Depression Screening Never done Zoster Vaccines (2 of 3) 07/14/2011 DTaP,Tdap,and Td Vaccines (1 - Tdap) 06/09/2012 Albumin/Creatinine Ratio 10/04/2019 COVID-19 Vaccine (3 - Pfizer series) 10/18/2020 CKD PHOS USE SMARTSET [id number] 05/31/2021 HbA1c 08/09/2022 Influenza Vaccine (FLU shot) (1) 11/07/2022 CKD HGB USE SMARTSET [id number] 08/30/2023 GFR 08/30/2023 Pneumococcal Vaccine: 65+ Years Completed Hepatitis B Aged Out MENINGOCOCCAL (MENACTRA/MENVEO) Aged Out GARDASIL-HPV IMMUNIZATION SERIES Aged Out Review of Systems: Review of Systems All other systems reviewed and are negative. Physical Exam: Vitals: 11/18/22 1020 Temp: 36 C (96.8 F) Pulse: 74 Resp: 18 SpO2: 94% BP: 112/70 Pain Screening: Yes - Location: all over, When: constant, Duration: constant, Aggravating Factors: none, Relieved by: nothing Pain Scale: 5 out of 10 There is no height or weight on file to calculate BMI. Physical Exam Constitutional: Appearance: Normal appearance. HENT: Head: Normocephalic. Mouth/Throat: Mouth: Mucous membranes are dry. Eyes: Extraocular Movements: Extraocular movements intact. Neck: Vascular: No carotid bruit. Cardiovascular: Rate and Rhythm: Rhythm irregular. Heart sounds: No murmur heard. Pulmonary: Comments: Few crackles right base Abdominal: General: Bowel sounds are normal. Palpations: Abdomen is soft. Musculoskeletal: General: No swelling. Cervical back: Neck supple. Skin: General: Skin is warm and dry. Capillary Refill: Capillary refill takes less than 2 seconds. Neurological: General: No focal deficit present. Mental Status: He is alert and oriented to person, place, and time. Mental status is at baseline. Psychiatric: Mood and Affect: Mood normal. Behavior: Behavior normal. Lab Data: Lab Results Component Value Date/Time BUN - [facility] 22 (H) 08/29/2022 07:12 AM BUN - [facility] 18 05/05/2018 10:37 AM Lab Results Component Value Date/Time CREATININE - [facility] 1.6 (H) 08/29/2022 07:12 AM CREATININE - [facility] 1.4 (H) 05/05/2018 10:37 AM CREATININE, RANDOM URINE - [facility] 273 10/03/2016 11:58 AM Lab Results Component Value Date/Time GLUCOSE - [facility] 96 08/29/2022 07:12 AM GLUCOSE - [facility] 111 05/05/2018 10:37 AM GLUCOSE, URINE - [facility] NEGATIVE 01/02/2006 04:16 PM No components found for: [id number] Lab Results Component Value Date/Time LDL CHOLESTEROL (CALCULATED) - [facility] 59 08/29/2022 07:12 AM LDL CHOLESTEROL (CALCULATED) - [facility] 49 09/14/2019 08:00 AM LDL CHOLESTEROL (DIRECT MEASURE) - [facility] 61 08/09/2021 07:24 AM LDL CHOLESTEROL (DIRECT MEASURE) - [facility] NOT APPLICABLE 09/14/2019 08:00 AM LDL CHOLESTEROL (DIRECT MEASURE) - [facility] 55 05/05/2018 10:37 AM No results found for: MICROALBUMIN Assessment/Plan: Renny was seen today for adult annual wellness visit, initial visit. 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) Cerebellar atrophy (HCC) Chronic ischemic heart disease, unspecified DYSLIPIDEMIA, GOAL LDL BELOW 100 Gastroesophageal reflux disease without esophagitis HTN, goal below 140/90 IDIO PERIPH NEURPTHY NOS Prediabetes Vitamin D deficiency Wheelchair dependence At risk for falls Irregular heart rhythm Stage 3b chronic kidney disease (CKD) (HCC) Anemia due to vitamin B12 deficiency, unspecified B12 deficiency type - NUTRITION-CLINICAL DIETITIAN REFERRAL OP Internal hemorrhoids Diverticulosis of large intestine without hemorrhage Atelectasis Osteoarthritis of multiple joints, unspecified osteoarthritis type Mixed conductive and sensorineural hearing loss of both ears PLAN Pt reports no active issues or adverse effects to the established treatment plan. No changes at this time. Strongly advised to contact her care team if changes occur. Care Planning (3+ Personal and/or Medical Goals): Better pain control Maintain activity level Less falls Treatment Plan: Continue present medication and follow up with PCP as needed Follow Up/Handouts: Nutrition consult CAHAWV f/u one year Angelica Beltran PA-C documented in this encounter Plan of Treatment Upcoming Encounters Date Type Specialty Care Team Description 12/04/2022 Home Visit [facility] Priya Ma RN [address] [place] [id number] 01/13/2023 Telemedicine [facility] Tamika Garay CRNP [address] [place] [id number] Estela Tristan, [facility] [address] [place] [id number] 11/25/2023 Office Visit Family Medicine Angelica Beltran PA-C [address] [place] [address] Scheduled Referrals Name Type Priority Associated Diagnoses Orde r Schedule NUTRITION-CLINICAL DIETITIAN REFERRAL OP Referral Within 30 days (routine) Anemia due to vitamin B12 deficiency, unspecified B12 deficiency type Ordered: 11/19/2022 Health Maintenance Due Date Last Done Comments Depression Screening 1952 Zoster Vaccines (2 of 3) 07/14/2011 05/19/2011 DTaP,Tdap,and Td Vaccines (1 - Tdap) 06/09/2012 06/08/2012, 04/08/2007 Albumin/Creatinine Ratio 10/04/2019 10/03/2016, 08/07 COVID-19 Vaccine (3 - Pfizer series) 10/18/2020 08/23/2020, 07/26/2020 CKD PHOS USE SMARTSET [id number] 05/31/202105/08, 09/14/2019, 05/05/2018, Additional history exists HbA1c 08/09/2022 08/09/2021 Influenza Vaccine (FLU shot) (#1) 2022 01/13/2022, 12/26/2019, 12/17/2018, Additional history exists CKD HGB USE SMARTSET [id number] 08/30/202308/29, 08/29/2022, 04/16/2022, Additional history exists GFR 08/30/2023 08/29/2022, 0210/2022, 11/21/2020, Additional history exists Pneumococcal Vaccine: 65+ Years Completed 09/13/2014, 04/21/2005 GARDASIL-HPV IMMUNIZATION SERIES Aged Out No longer [...] as of this encounter Visit Diagnoses Diagnosis BPH without obstruction/lower urinary tract symptoms- Primary Hypertrophy of prostate without urinary obstruction and other lower urinary tract symptoms (LUTS) 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) Benign hypertensive kidney disease with chronic kidney disease stage I through stage IV, or unspecified Cerebellar ataxia (HCC) Other cerebellar ataxia Cerebellar atrophy (HCC) Cerebral degeneration, unspecified Chronic ischemic heart disease, unspecified DYSLIPIDEMIA, GOAL LDL BELOW 100 Other and unspecified hyperlipidemia Gastroesophageal reflux disease without esophagitis Esophageal reflux HTN, goal below 140/90 Unspecified essential hypertension IDIO PERIPH NEURPTHY NOS Unspecified hereditary and idiopathic peripheral neuropathy Prediabetes Other abnormal glucose Vitamin D deficiency Unspecified vitamin D deficiency Wheelchair dependence At risk for falls Personal history of fall Irregular heart rhythm Cardiac dysrhythmia, unspecified Stage 3b chronic kidney disease (CKD) (HCC) Anemia due to vitamin B12 deficiency, unspecified B12 deficiency type Internal hemorrhoids Internal hemorrhoids without mention of complication Diverticulosis of large intestine without hemorrhage Atelectasis Pulmonary collapse Osteoarthritis of multiple joints, unspecified osteoarthritis type Mixed conductive and sensorineural hearing loss of both ears Mixed hearing loss, bilateral documented in this encounter Advance Directives Documents on File Type Date Recorded Patient Hspt Tutor Expl anation POLST 10/13/2018 POLST Care Teams Quality Rep Relationship Specialty Start Date End Date Debora Del Valle III, MD [address] [facility] [place] [address] PCP - General 09/21/01 documented as of this encounter
--- OUTSIDE RECORDS SUMMARY | 2023-03-26 00:01 | External Medical Summary | Summary of Care ---
Author Name Unknown Organization [facility] Address [address] [place] [address] Phone [phone] Care Team Providers Care Staff Cytotechnologist Name Role Phone Ligia TURNER MD, Debora Shell Primary Care Provider [phone] Reason for Visit * Reason Comments Medication Refill Encounter Details Date Type Department Care Team Description 11/06/2022 Refill Family Practice [facility] [place] [address] [facility] [place] [address] Debora Del Valle III, MD [address] [facility] [place] [address] Gastroesophageal reflux disease without esophagitis; HTN, goal below 140/90 Allergies Active Allergy Reactions Severity Noted Date Comments Colchicine 06/07/2008 Mold 06/27/2002 documented as of this encounter (statuses as of 11/07/2022) Medications Medication Sig Dispensed Refills Start Date End Date Status ASPIRIN EC LOW STRENGTH TBEC 81 MG ORIndications:Oth er chest pain one by mouth daily 34 [...] mouth daily. 30 Tab 0 05/17/2020 Active Fluticasone-Salme terol 250-50 MCG/DOSE Inhalation Aerosol Powder Breath Activated (Wixela Inhub) Rinse after INHALE ONE PUFF BY MOUTH ONCE A DAY 180 Each 3 01/22/2021 Active Nitroglycerin 0.4 MG Sublingual Tablet Sublingual (Nitrostat)Indica tions:Chronic ischemic heart disease every 5 min x 3 as needed chest pain 25 Tablet 3 08/28/2021 Active Simvastatin 40 MG Oral Tablet (Zocor)Indication s:Dyslipidemia, goal LDL below 100 Take 1 Tablet by mouth at bedtime. 90 Tablet 1 09/11/2022 Active Omeprazole 40 MG Oral Capsule Delayed Release (PriLOSEC)Indicat ions:Gastroesopha geal reflux disease without esophagitis TAKE ONE CAPSULE BY MOUTH TWICE A DAY 180 Capsule 1 11/07/2022 Active Losartan Potassium 50 MG Oral Tablet (Cozaar)Indicatio ns:HTN, goal below 140/90 TAKE ONE TABLET BY MOUTH EVERY DAY 90 Tablet 1 11/07/2022 Active Losartan Potassium 50 MG Oral Tablet (Cozaar)Indicatio ns:HTN, goal below 140/90 TAKE ONE TABLET BY MOUTH EVERY DAY 90 Tablet 1 05/16/2022 3 Discontinue d(Refill) Omeprazole 40 MG Oral Capsule Delayed Release (PriLOSEC)Indicat ions:Gastroesopha geal reflux disease without esophagitis TAKE ONE CAPSULE BY MOUTH TWICE A DAY 180 Capsule 1 05/16/2022 3 Discontinue d(Refill) documented as of this encounter (statuses as of 11/07/2022) Active Problems Problem Noted Date Wheelchair dependence 10/15/2022 Last Assessment & Plan: 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 Stable. 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 EXT ASTHMA W-O STAT ASTH 023 documented as of this encounter (statuses as of 11/07/2022) Immunizations Name Administration Dates Next Due COVID-19 mRNA, LNP-s, No Pre serve, 2-Dose Series (Zapier) 08/23/2020,07/26/2020 Pneumococcal Conjugate Vacc, 13 Valent (Prevnar) [...] encounter Miscellaneous Notes * Telephone Encounter - [place], [facility] - 11/07/2022 1:17 PM EDTSigned Prescriptions: Disp Refills Omeprazole 40 MG Oral Capsule Delayed Rele*180 Ca*1 Sig: TAKE ONE CAPSULE BY MOUTH TWICE A DAY Authorizing Provider: DEBORA DEL VALLE III Ordering User: ROSSANA GRANDE Losartan Potassium 50 MG Oral Tablet (Coza*90 Tab*1 Sig: TAKE ONE TABLET BY MOUTH EVERY DAY Authorizing Provider: DEBORA DEL VALLE III Ordering User: ROSSANA GRANDE * Telephone Encounter - [facility] User - 11/06/2022 9:28 AM EDTPending Prescriptions: Disp Refills Omeprazole 40 MG Oral Capsule Delayed Rele*180 Ca*1 Sig: TAKE ONE CAPSULE BY MOUTH TWICE A DAY Losartan Potassium 50 MG Oral Tablet (Coza*90 Tab*1 Sig: TAKE ONE TABLET BY MOUTH EVERY DAY documented in this encounter Plan of Treatment Upcoming Encounters Date Type Specialty Care Team Description 11/20/2022 Home Visit [facility] Priya Ma RN [address] [place] [address] 01/13/2023 Telemedicine [facility] Tamika Garay CRNP [address] [place] [address] Estela Tristan, [facility] [address] [place] [address] Health Maintenance Due Date Last Done Comments Depression Screening, Annual for Pts 12 and Over 1952 Zoster Vaccines (2 of 3) 07/14/2011 05/19/2011 DTaP,Tdap,and Td Vaccines (1 - Tdap) 06/09/2012 06/08/2012, 04/08/2007 Albumin/Creatinine Ratio 10/03/2017 10/03/2016, 08/07 COVID-19 Vaccine (3 - Pfizer series) 10/18/2020 08/23/2020, 07/26/2020 CKD PHOS USE SMARTSET [id number] 05/31/2021 03/2 07/2020, 09/14/2019, 05/05/2018, Additional history exists HbA1c 08/09/2022 08/09/2021 Influenza Vaccine (FLU shot) (#1) 2022 01/13/2022, 12/26/2019, 12/17/2018, Additional history exists GFR 02/28/2023 08/29/2022, 10/2022, 11/21/2020, Additional history exists CKD HGB USE SMARTSET 01199 08/30/202308/29, 08/29/2022, 04/16/2022, Additional history exists Pneumococcal Vaccine: 65+ Years [...] as of this encounter Visit Diagnoses Diagnosis Gastroesophageal reflux disease without esophagitis Esophageal reflux HTN, goal below 140/90 Unspecified essential hypertension documented in this encounter Advance Directives Documents on File Type Date Recorded Patient Logging Equipment Operator Expl anation POLST 10/13/2018 POLST Care Teams Staff Cytotechnologist Relationship Specialty Start Date End Date Debora Del Valle III, MD [address] [facility] [place] [address] PCP - General 09/21/01 documented as of this encounter
--- OUTSIDE RECORDS SUMMARY | 2023-03-26 00:01 | External Medical Summary | Summary of Care ---
Author Name Unknown Organization [facility] Address [address] [facility] [place] [address] Phone [phone] Care Team Providers Care Teacher Of The Visually Impaired Name Role Phone Ligia TURNER MD, Kamari Shell Primary Care Provider [phone] Reason for Visit * Reason Onset Date Comments Appointment 11/13/2022 Encounter Details Date Type Department Care Team Description 11/13/2022 Telephone [facility], [facility] [address] [facility] [place] [address] Angelica Barrow, Community [facility] Haulage Engine Operator Appointment Allergies Active Allergy Reactions Severity Noted Date Comments Colchicine 06/07/2008 Mold 06/27/2002 documented as of this encounter (statuses as of 11/13/2022) Medications Medication Sig Dispensed Refills Start Date [...] as of this encounter (statuses as of 11/13/2022) Active Problems Problem Noted Date Wheelchair dependence [...] as of this encounter (statuses as of 11/13/2022) Resolved Problems Problem Noted Date Resolved Date Impacted cerumen of right ear 11/22/2021 Last Assessment & Plan: Irrigation performed 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 EXT ASTHMA W-O STAT ASTH 023 documented as of this encounter (statuses as of 11/13/2022) Immunizations Name Administration Dates Next Due COVID-19 [...] encounter Miscellaneous Notes * Telephone Encounter - [facility] - 11/13/2022 4:37 PM EDT Rescheduled appointment for 12/04/2022 @ 2:30 pm with Priya Ma RN Spoke to spouse she was upset that this is being rescheduled again . But she agreed to this appointment ELIZABETH Arrington documented in this encounter Plan of Treatment Upcoming Encounters Date Type Specialty Care Team Description 12/04/2022 Home Visit [facility] Priya Ma RN [address] [facility] [place] [address] 01/13/2023 Telemedicine [facility] Tamika Garay CRNP [address] [place] [address] Estela Tristan, [facility] Haulage Engine Operator [address] [place] [address] [place] [address] Health Maintenance Due Date Last Done Comments Depression Screening 1952 Zoster Vaccines (2 of 3) 07/14/2011 05/19/2011 DTaP,Tdap,and Td Vaccines (1 - Tdap) 06/09/2012 06/08/2012, 04/08/2007 Albumin/Creatinine Ratio 10/03/2017 10/03/2016, 08/07 COVID-19 Vaccine (3 - Pfizer series) 10/18/2020 08/23/2020, 07/26/2020 CKD PHOS USE SMARTSET [id number] 05/31/2021 03/2 07/2020, 09/14/2019, 05/05/2018, Additional history exists HbA1c 08/09/2022 08/09/2021 Influenza Vaccine (FLU shot) (#1) 2022 01/13/2022, 12/26/2019, 12/17/2018, Additional history exists GFR 02/28/2023 08/29/2022, 02/0 10/2022, 11/21/2020, Additional history exists CKD HGB USE SMARTSET 23183 08/30/202308/29, 08/29/2022, 04/16/2022, Additional history exists Pneumococcal [...] Documents on File Type Date Recorded 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
--- OUTSIDE RECORDS SUMMARY | 2023-03-26 00:01 | External Medical Summary | Summary of Care ---
Author Name Unknown Organization [facility] Address [address] [place] [address] Phone [phone] Care Team Providers Care Dermatologist And Dermatopathologist Name Role Phone Ligia TURNER MD, Kamari Shell Primary Care Provider [phone] Reason for Visit * Reason Onset Date Comments Appointment 11/17/2022 Encounter Details Date Type Department Care Team Description 11/17/2022 Telephone [facility] at Home [address] [place] [address] Services, Scheduling [address] [place] [address] Appointment Allergies Active Allergy Reactions Severity Noted Date Comments Colchicine 06/07/2008 Mold 06/27/2002 documented as of this encounter (statuses as of 11/17/2022) Medications Medication Sig Dispensed Refills Start Date [...] as of this encounter (statuses as of 11/17/2022) Active Problems Problem Noted Date Wheelchair dependence [...] as of this encounter (statuses as of 11/17/2022) Resolved Problems Problem Noted Date Resolved Date Impacted cerumen of right ear 11/22/2021 Last Assessment & Plan: Irrigation performed 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 EXT ASTHMA W-O STAT ASTH 023 documented as of this encounter (statuses as of 11/17/2022) Immunizations Name Administration Dates Next Due COVID-19 [...] encounter Miscellaneous Notes * Telephone Encounter - ELIZABETH Rubin - 11/17/2022 3:47 PM EDT [facility] At Home Outreach Call attempt: 1st Call Call result: Call Successful - Patient enrolled and agreed to visit. Appointment with: Angelica Beltran PA-C Visit Date: 11/18/22 Visit Time: 1030am documented in this encounter Plan of Treatment Upcoming Encounters Date Type Specialty Care Team Description 11/18/2022 Home Visit [facility]tran PA-C [address] [facility] [address] 12/04/2022 Home Visit [facility] Priya Ma RN [address] [place] [address] 01/13/2023 Telemedicine [facility] Tamika Garay CRNP [address] [place] [address] Estela Tristan, Community [facility] Receiving Teller [address] [place] [address] [place] [address] Health Maintenance Due Date Last Done Comments Depression Screening 1952 Zoster Vaccines (2 of 3) 07/14/2011 05/19/2011 DTaP,Tdap,and Td Vaccines (1 - Tdap) 06/09/2012 06/08/2012, 04/08/2007 Albumin/Creatinine Ratio 10/03/2017 10/03/2016, 08/07 COVID-19 Vaccine (3 - Pfizer series) 10/18/2020 08/23/2020, 07/26/2020 CKD PHOS USE SMARTSET [id number] 05/31/2021 03/07/2020, 09/14/2019, 05/05/2018, Additional history exists HbA1c 08/09/2022 08/09/2021 Influenza Vaccine (FLU shot) (#1) 2022 01/13/2022, 12/26/2019, 12/17/2018, Additional history exists GFR 02/28/2023 08/29/2022, 02/0 10/2022, 11/21/2020, Additional history exists CKD HGB USE SMARTSET 52894 08/30/202308/29, 08/29/2022, 04/16/2022, Additional history exists Pneumococcal [...] Documents on File Type Date Recorded Patient Primary Substance Abuse Counselor Expl anation POLST 10/13/2018 POLST Care Teams Dermatologist And Dermatopathologist Relationship Specialty Start Date End Date Kamari Strong III, MD 200 [place] [address] PCP - General 09/21/01 documented as of this encounter
--- OUTSIDE RECORDS SUMMARY | 2023-03-26 00:01 | External Medical Summary | Summary of Care ---
Author Name Unknown Organization [facility] Address [address] [place] [address] Phone [phone] Care Team Providers Care Optometric Technician Name Role Phone Ligia TURNER MD, Kamari Shell Primary Care Provider [phone] Reason for Visit * Reason Onset Date Comments Information 10/31/2022 Encounter Details Date Type Department Care Team Description 10/31/2022 Telephone [facility], [place] [address] [place], [place] [phone] Services, Scheduling [address] [place] [address] Information (//) Allergies Active Allergy Reactions Severity Noted Date Comments Colchicine 06/07/2008 Mold 06/27/2002 documented as of this encounter (statuses as of 10/31/2022) Medications Medication Sig Dispensed Refills Start Date [...] at bedtime. 90 Tablet 1 09/11/2022 Active Losartan Potassium 50 MG Oral Tablet (Cozaar)Indication s:HTN, goal below 140/90 TAKE ONE TABLET BY MOUTH EVERY DAY 90 Tablet 1 05/16/2022 05/16/2023 Active Omeprazole 40 MG Oral Capsule Delayed Release (PriLOSEC)Indicati ons:Gastroesophage al reflux disease without esophagitis TAKE ONE CAPSULE BY MOUTH TWICE A DAY 180 Capsule 1 05/16/2022 05/16/2023 Active documented as of this encounter (statuses as of 10/31/2022) Active Problems Problem Noted Date Wheelchair dependence [...] as of this encounter (statuses as of 10/31/2022) Resolved Problems Problem Noted Date Resolved Date Impacted cerumen of right ear 11/22/2021 Last Assessment & Plan: Irrigation performed 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 EXT ASTHMA W-O STAT ASTH 023 documented as of this encounter (statuses as of 10/31/2022) Immunizations Name Administration Dates Next Due COVID-19 [...] Miscellaneous Notes * Telephone Encounter - ELIZABETH Mera - 10/31/2022 11:48 AM EDT called to check if we are doing flu shots yet this year and I said could add to the list of those who requested and she would be called back with availability once we have ours documented in this encounter Plan of Treatment Upcoming Encounters Date Type Specialty Care Team Description 11/20/2022 Home Visit [facility] Priya Ma, RN [address] [facility] [place] [address] 01/13/2023 Telemedicine [facility] Tamika Garay CRNP [address] [place] [address] Estela Tristan, Community [facility] Chef'S Assistant [address] [place] [address] [place] [address] Health Maintenance Due Date Last Done Comments Depression Screening, Annual for Pts 12 and Over 1952 Zoster Vaccines (2 of 3) 07/14/2011 05/19/2011 DTaP,Tdap,and Td Vaccines (1 - Tdap) 06/09/2012 06/08/2012, 04/08/2007 Albumin/Creatinine Ratio 10/03/2017 10/03/2016, 08/07 COVID-19 Vaccine (3 - Pfizer series) 10/18/2020 08/23/2020, 07/26/2020 CKD PHOS USE SMARTSET 09590 05/31/2021 03/2 07/2020, 09/14/2019, 05/05/2018, Additional history exists HbA1c 08/09/2022 08/09/2021 Influenza Vaccine (FLU shot) (#1) 2022 01/13/2022, 12/26/2019, 12/17/2018, Additional history exists GFR 02/28/2023 08/29/2022, 02/0 10/2022, 11/21/2020, Additional history exists CKD HGB USE SMARTSET 40028 08/30/202308/29, 08/29/2022, 04/16/2022, Additional history exists Pneumococcal [...] Documents on File Type Date Recorded Patient Checking Department Supervisor Expl anation POLST 10/13/2018 POLST Care Teams Optometric Technician Relationship Specialty Start Date End Date Kamari Strong III, MD 200 [place] [address] PCP - General 09/21/01 documented as of this encounter
--- OUTSIDE RECORDS SUMMARY | 2023-03-26 00:01 | External Medical Summary | Summary of Care ---
Author Name Unknown Organization [facility] Address [address] [place] [address] Phone [phone] Care Team Providers Care Clay Miller Name Role Phone Ligia TURNER MD, Kamari Shell Primary Care Provider [phone] Reason for Visit * Reason Onset Date Comments Appointment 11/17/2022 Encounter Details Date Type Department Care Team Description 11/17/2022 Telephone [facility] at Home [address] [place] [address] Services, Scheduling [address] [place] [address] Appointment Allergies Active Allergy Reactions Severity Noted [...] Family Medicine Angelica [facility]an [facility]-C [address] [facility] [address] 12/04/2022 [facility] Visit [facility] Priya Ma RN [address] [place] [address] 01/13/2023 Telemedicine [facility] Tamika Garay CRNP [address] [place] [address] Estela Tristan, [facility] Animal Health Technician [address] [place] [address] [place] [address] Health Maintenance Due Date Last Done Comments Depression Screening 1952 Zoster Vaccines (2 of 3) 07/14/2011 05/19/2011 DTaP,Tdap,and Td Vaccines (1 - Tdap) 06/09/2012 06/08/2012, 04/08/2007 Albumin/Creatinine Ratio 10/03/2017 10/03/2016, 08/07 COVID-19 Vaccine (3 - Pfizer series) 10/18/2020 08/23/2020, 07/26/2020 CKD PHOS USE SMARTSET 99164 05/31/2021 03/07/2020, 09/14/2019, 05/05/2018, Additional history exists HbA1c 08/09/2022 08/09/2021 Influenza Vaccine (FLU shot) (#1) 2022 01/13/2022, 12/26/2019, 12/17/2018, Additional history exists GFR 02/28/2023 08/29/2022, 02/0 10/2022, 11/21/2020, Additional history exists CKD HGB USE SMARTSET 31745 08/30/202308/29, 08/29/2022, 04/16/2022, Additional history exists Pneumococcal [...] Documents on File Type Date Recorded Patient Funeral Pre Need Consultant Expl anation POLST 10/13/2018 POLST Care Teams Clay Miller Relationship Specialty Start Date End Date Kamari Strong III, MD [address] [place] [address] PCP - General 09/21/01 documented as of this encounter
--- OUTSIDE RECORDS SUMMARY | 2023-03-26 00:01 | External Medical Summary | Summary of Care ---
Author Name Unknown Organization [facility] Address [address] [place] [address] Phone [phone] Care Team Providers Care Accounting Administrator Name Role Phone Ligia TURNER MD, Kamari Shell Primary Care Provider [phone] Reason for Visit * Reason Onset Date Comments Appointment 10/30/2022 Encounter Details Date Type Department Care Team Description 10/30/2022 Telephone [facility] [address] [facility] [place] [address] Services, Scheduling [address] [place] [address] Appointment (//) Allergies Active Allergy Reactions Severity Noted Date Comments Colchicine 06/07/2008 Mold 06/27/2002 documented as of this encounter (statuses as of 10/30/2022) Medications Medication Sig Dispensed Refills Start Date [...] as of this encounter (statuses as of 10/30/2022) Active Problems Problem Noted Date Wheelchair dependence [...] as of this encounter (statuses as of 10/30/2022) Resolved Problems Problem Noted Date Resolved Date Impacted cerumen of right ear 11/22/2021 Last Assessment & Plan: Irrigation performed 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 EXT ASTHMA W-O STAT ASTH 023 documented as of this encounter (statuses as of 10/30/2022) Immunizations Name Administration Dates Next Due COVID-19 [...] Miscellaneous Notes * Telephone Encounter - ELIZABETH López - 10/30/2022 11:51 AM EDT Per Request to schedule 3 month telemed... Called s/w pts she advised 01/13 at 3:00pm is a gooddate and time documented in this encounter Plan of Treatment Upcoming Encounters Date Type Specialty Care Team Description 11/20/2022 [facility] Priya Ma RN [address] [facility] [place] [address] 01/13/2023 Telemedicine [facility] Tamika Garay CRNP [address] [place] [address] Estela Tristan, [facility] Freezer Worker [address] [place] [address] [place] [address] Health Maintenance Due Date Last Done Comments Depression Screening, Annual for Pts 12 and Over 1952 Zoster Vaccines (2 of 3) 07/14/2011 05/19/2011 DTaP,Tdap,and Td Vaccines (1 - Tdap) 06/09/2012 06/08/2012, 04/08/2007 Albumin/Creatinine Ratio 10/03/2017 10/03/2016, 08/07 COVID-19 Vaccine (3 - Pfizer series) 10/18/2020 08/23/2020, 07/26/2020 CKD PHOS USE SMARTSET 08068 05/31/2021 03/2 07/2020, 09/14/2019, 05/05/2018, Additional history exists HbA1c 08/09/2022 08/09/2021 Influenza Vaccine (FLU shot) (#1) 2022 01/13/2022, 12/26/2019, 12/17/2018, Additional history exists GFR 02/28/2023 08/29/2022, 02/0 10/2022, 11/21/2020, Additional history exists CKD HGB USE SMARTSET 82475 08/30/202308/29, 08/29/2022, 04/16/2022, Additional history exists Pneumococcal [...] Documents on File Type Date Recorded Patient Baseball Coach Expl anation CASSY 10/13/2018 POLST Care Teams Accounting Administrator Relationship Specialty Start Date End Date Ligia TURNER, Kamari Shell MD 200 [place] [address] PCP - General 09/21/01 documented as of this encounter
--- OUTSIDE RECORDS SUMMARY | 2023-03-26 00:01 | External Medical Summary | Summary of Care ---
Author Name Unknown Organization [facility] Address [address] [place] [id number] Phone [phone] Care Team Providers Care Implementation Engineer Name Role Phone Ligia TURNER MD, Kamari Shell Primary Care Provider [phone] Reason for Referral * Ancillary Services (Within 10 days (routine)) - Authorized Specialty Diagnoses / Procedures Referred By Claudia leonard Referred To Contact Branding Machine Operator Diagnoses Hypertensive kidney disease with stage 3a chronic kidney disease (HCC) Tamika Garay CRNP [address] [place] [address] Referral ID Status Reason Start Date Expiration Date Visits Requested Visits Authorized [id number] Authorized Ancillary Services Required 01/13/2023 999 999 [...] on the next service day for the [facility] does not service every geographical location on a daily basis. Contact [facility] Client Services at to find out service days for a specific location. Medical Laboratory [address] [place] [id number] Delbert Becerril M.D. Director and Electroplater Helper Patient Name: Renny Paul : 1940 Sex: male Address [address] [facility] [address] Provider: Self? Kamari Strong III, MD? Diagnosis: Z71.89 Advanced care planning/counseling discussion (primary encounter diagnosis) Tests Requested Cbc, CMP, TSH, hgba1c in 1-2 weeks Reason for Visit * Reason Comments [facility]: Telehealth Encounter Details Date Type Department Care Team (Late st Contact Info) Description 01/13/2023 3:00 PM EST Telemedicine [facility], [facility] [address] [place] [address] Tamika Garay CRNP [address] [place] [address] Estela Tristan, Community Health Hogshead Head Matcher [address] [place] [address] [place] [address] Cerebellar ataxia (HCC)*; Advanced care planning/counseling discussion; [...] pt refuses to leave home. Poor vision HYDABURG. does not leave for long periods. Dgt [...] mRNA, LNP-s, No Pre serve, 2-Dose Series (Lien Enforcement) 08/23/2020,07/26/2020 Pneumococcal Conjugate Vacc, 13 Valent (Prevnar) [...] documented in this encounter Progress Notes * Tamika Garay CRNP - 01/13/2023 3:00 PM EST Images from the original note were not included. [facility] Problem Oriented Charting Provider Visit Date: 01/13/2023 Time: 12:07 PM [facility] Sub-Program: [facility] Episode Start Date: Noted: 07/24/2021 Assessment and Plan #1 Cerebellar ataxia (HCC) (Primary) Assessment & Plan: Type 6 cerebeller degeneration--autosomal dominant. Cannot ambulate--uses w/c. Good upper body strength, gets himself out of w/c and crawls on floor to bathroom and bedroom. reports this is baseline for years. + tremor--shaking with feeding self. Has portable ramp but pt refuses to leave home.Poor vision HYDABURG. does not leave for long periods. Dgt [...] to xrays. RNCM to monitor. Check-out note: [facility] scheduling--please schedule in-person visit with [place] in 3 months Scheduled appointments in the next 60 days: Future Appointments-next 60 days Date/Time Provider Specialty Dept Phone 01/13/2023 3:00 PM Estela Tristan, Community Health Hogshead Head Matcher; Tamika Garay CRNP [facility] [phone] 02/16/2023 12:30 PM Priya Ma RN [facility] [phone] 11/25/2023 10:30 AM Angelica Beltran PA-C Family Medicine [phone] A total of 54 minutes was spent face to face (via video-based telemedicine if designated as a telemedicine visit) Subjective Subjective Is this a Telemedicine Visit? Yes, Patient location: HOME. I was not in a hospital or clinic location. After connecting through televideo, patient was verified with two unique identifiers. Patient (or authorized legal manufacturer's service representative) was then informed that this was a Telemedicine visit and being conducted confidentially over secure lines. Methods to assure confidentiality were taken. Patient acknowledged consent and understanding of privacy and security of the Telemedicine visit. The patient agreed to participate. Reason For [facility] Visit: Follow-Up 3 months Current Concerns: Renny Paul is a 82 year old male seen today for a [facility] provider visit. PMH--anemia, cerebellar ataxia, [...] see anything out of R eye. Very HYDABURG. Refuses to go anywhere for further eval. [...] to clarify what he is saying. Sometimes care home memory is better than short term. Feels [...] results for input(s): "TSH" in the last 20986 hours. Vitamin D results No results for input(s): "25OHVITAMIND" in the last 63328 hours. Hepatic panel results No results for input(s): "PROT", "ALB", "TBIL", "ALKP", "AST", "ALT" in the last 61710 hours. Protein/cr ratio results No results for input(s): "PROCRRATIO" in the last 74664 hours. Medication Review "Bottles Out" medication review [...] (04/14/2022 10:38 AM) Source: Content from [facility] [employer] [facility] DEANA Horn 8:34 AM *Communication sent to PCP (via [facility] if [facility]), [facility] Care Team members,relevant Specialty Care Physicians* documented [...] but pt refuses to leave home.Poor vision HYDABURG. does not leave for long periods. Dgt lives across street to assist. Falls frequently, had PT in past and did not help per . * ACP (Advance Care Planning) - JarrodTamiak DEANA Lambert - 01/13/2023 12:48 PM EST Patient-centered Communication [...] ventilation (define below) 12/25/2021 Source: Content from [employer] [facility] Aligning Care With What Matters Most: Synopsis SmartLink Most Recent Value Past ~10 years 04/14/2022 10:38 Aligning Care With What Matters Most Interventions/Choices: CPR;Intubation/mechanical ventilation;Non-invasive ventilation or BIPAP;Antibiotic therapy;Artificial nutrition;IV hydration;Blood transfusion;Dialysis 04/14/2022 CPR;Intubation/mechanical ventilation;Non-invasive ventilation or BIPAP;Antibiotic therapy;Artificial nutrition;IV hydration;Blood transfusion;Dialysis Rationale for Decisions Source: Content from [employer] [facility] 20 minutes spent in direct uklc-ea-sadt discussion today, DEANA Horn documented in this encounter Plan of Treatment Upcoming Encounters Date Type Department Care Team (Late st Contact Info) Description 01/21/2023 9:10 AM EST Laboratory Lab Mobile Phlebotomy [facility] [address] [place] [address] [facility] Home Draw [address] [place] [address] 02/16/2023 12:30 PM EST Home Visit [facility] [address] [address] Priya Ma RN [address] [facility] [place] [address] 11/25/2023 10:30 AM EDT Office Visit Care at Home [address], [place] [id number] Angelica Beltran PA-C [address] [place] [address] Scheduled Orders Name Type Priority Associated Diagnoses [...] season) 2022 08/23/2020, 07/26/2020 GFR 08/30/2023 08/29/2022, 02/10/2022, 11/21/2020, Additional history exists Pneumococcal Vaccine: 65+ [...] on File Type Date Recorded Patient Commercial Lines Account Assistant Expl anation POL 10/13/2018 POLST Care Teams Implementation Engineer Relationship Specialty Start Date End Date Kamari Strong III, MD [address] [place] [address] PCP - General 09/21/01 documented as of this encounter
--- OUTSIDE RECORDS SUMMARY | 2023-03-26 00:01 | External Medical Summary | Summary of Care ---
Author Name Unknown Organization [facility] Address [address] [facility] [address] Phone [phone] Care Team Providers Care Pipe Caulker Name Role Phone Ligia TURNER MD, Kamari Shell Primary Care Provider [phone] Reason for Visit * Reason Onset Date Comments [facility]: Maintenance Medication Administration 12/04/2022 Flu an d/or Pneumo Inj Encounter Details Date Type Department Care Team Description 12/04/2022 Home Visit [facility], [facility] [address] [place] [address] Priya Ma, RN [address] [facility] [place] [address] Need for prophylactic vaccination and inoculation against influenza* Allergies Active Allergy Reactions Severity Noted Date Comments Colchicine 06/07/2008 Mold 06/27/2002 documented as of this encounter (statuses as of 12/19/2022) Medications Medication Sig Dispensed Refills Start Date [...] as of this encounter (statuses as of 12/19/2022) Active Problems Problem Noted Date At risk [...] as of this encounter (statuses as of 12/19/2022) Resolved Problems Problem Noted Date Resolved Date [...] as of this encounter (statuses as of 12/19/2022) Immunizations Name Administration Dates Next Due COVID-19 [...] Sign Reading Time Taken Comments Blood Pressure 120/70 12/04/2022 12:33 PM EDT Pulse 62 12/04/2022 12:33 PM EDT Temperature 35.9 C (96.6 F) 12/04/2022 12:33 PM E DT Respiratory Rate 18 12/04/2022 12:33 PM EDT Oxygen Saturation 99% 12/04/2022 12:33 PM EDT Inhaled Oxygen Concentration - - Weight - - Height - - Body Mass Index - - documented in this encounter Progress Notes * Priya Ma RN - 12/04/2022 12:41 PM EDT [facility] Horticultural Technical Officer Visit Date: 12/04/2022 Time: 12:41 PM Name: Renny Paul : 1940 Current Concerns: Pt seen for return RNCM visit Pt is primary care at home present and provides information Pt is CHITIMACHA and answers yes/no or very short answers to questions- not able to provide much details He does complain of a headache today - gave tylenol Denies any concerns at this time feels he has been stable Flu vaccine given today per request VSS Physical Exam: BP 120/70 | Pulse 62 | Temp 35.9 C (96.6 F) | Resp 18 | SpO2 99% Pain 4 Physical Exam Constitutional: General: He is not [...] Negative. Respiratory: Positive for shortness of breath (at baseline). Cardiovascular: Negative. Gastrointestinal: Negative. Endocrine: Negative. Genitourinary: Negative. Musculoskeletal: Positive for gait problem. Neurological: Positive for headaches. Psychiatric/Behavioral: Positive for confusion. Medication Reconciliation: (See medication list) Does patient take medications as ordered: Yes Patient Well Being: PHQ2/9: No questionnaires available. No change in living situation Continues to have falls - crawls out of recliner to get into w/c sometimes falls onto the floor butgets himself up into chair states he has not had any inuries from these falls [facility] Completed this Visit: Yes. [facility]: Reason Completed: Status post fall [facility] Interventions: Fall education provided, reviewed/provided [...] precautions manages meds APAP prn for pain/discomfort Flu vaccine administered today Home Interventions Provided: Home Intervention: Other; Eval, Flu Vaccine Reinforced current Plan of Care, including self-management and medication regimen Patient's 'Red Flags': Cough/SOB/green or yellow mucus Increased confusion fever Patient Needs to Remember: Call [facility] at with any new or worsening health concerns or problems, red flag symptoms. Referrals Needed: Other none Follow Up: Is there cellular connectivity/connectivity in the home? Yes Does the patient have internet in the home? Yes Patient encouraged to call the intake phone number for all urgent but not emergent issues. Is the patient new to [facility] within the last 30 days? No, Assess appropriateness for upcoming telehealth visits. Cancel telehealth visits & schedule home visit with care maintenance team leader(s)as indicated. Provider is in agreement with Plan of Care: Yes Scheduled to follow up with patient in 6 weeks with provider, 6 weeks after with RNCM. Priya Ma RN 12/04/2022 12:41 PM PRE - ADMINISTRATION DOCUMENTATION Are you experiencing any cold symptoms or fever? No Have you had Guillain-Dutch John Syndrome (an illness that causes paralysis) within the last 6 weeks? No Have you had the flu shot in the past? YES Have you ever had a reaction to the flu shot? No Priya Ma RN, 12/04/2022 12:58 PM Immunization Administration Documentation Time Out Procedure Performed: Yes Patient Identified (Ask Name/Date of ): Yes Does the patient have a fever greater than 101 degrees today? No Patient allergic to latex? No VFC Stock: No Immunization(s) verified: Yes, Immunization Name: Flu, VIS Sheet(s) given: Yes Verified Side and Site: Yes Verified Shot(s) with Parent(s)/Patient: Yes documented in this encounter Plan of Treatment Upcoming Encounters Date Type Specialty Care Team Description 01/13/2023 Telemedicine [facility] Tamika Garay CRNP [address] [place] [address] Estela Tristan, Community Health Chopper Feeder [address] [place] [address] [place] [address] 02/16/2023 Home Visit [facility] Priya Ma RN [address] [place] [address] 11/25/2023 Office Visit Family Medicine Angelica Beltran PA-Giovanna [address] [facility] [place] [address] Health Maintenance Due Date Last Done Comments Depression Screening 1952 Zoster Vaccines (2 of 3) 07/14/2011 05/19/2011 DTaP,Tdap,and Td Vaccines (1 - Tdap) 06/09/2012 06/08/2012, 04/08/2007 Albumin/Creatinine Ratio 10/04/2019 10/03/2016, 08/07 CKD PHOS USE SMARTSET 47657 05/31/202105/08, 09/14/2019, 05/05/2018, Additional history exists HbA1c 08/09/2022 08/09/2021 COVID-19 Vaccine ( season) 2022 08/23/2020, 07/26/2020 CKD HGB USE SMARTSET 64385 08/30/202308/29, 08/29/2022, 04/16/2022, Additional history exists GFR 08/30/2023 08/29/2022, 10/2022, 11/21/2020, Additional history [...] as of this encounter Visit Diagnoses Diagnosis Need for prophylactic vaccination and inoculation against influenza- Primary documented in this encounter Advance Directives Documents on File Type Date Recorded Patient Desk Assistant Expl anation POLST 10/13/2018 POLST Care Teams Pipe Caulker Relationship Specialty Start Date End Date Kamari Strong III, MD [address] [place] [address] PCP - General 09/21/01 documented as of this encounter
--- OUTSIDE RECORDS SUMMARY | 2023-03-26 00:01 | External Medical Summary | Summary of Care ---
Author Name Unknown Organization [facility] Address [address] [facility] [place] [address] Phone [phone] Care Team Providers Care Diesel Fleet Mechanic Name Role Phone Ligia TURNER MD, Kamari Shell Primary Care Provider [phone] Reason for Visit * Reason Onset Date Comments [facility]: Maintenance 11/19/2022 Encounter Details Date Type Department Care Team Description 11/19/2022 Telephone [facility], [facility] [address] [facility] [place] [address] [facility] [address] [facility] [place] [address] [facility]: Maintenance Allergies Active Allergy Reactions Severity Noted Date [...] of 11/19/2022) Active Problems Problem Noted Date Wheelchair dependence [...] Telephone Encounter - Sanjuanita Orellana RN - 11/19/2022 9:46 AM EDT Call from patient's . Wanted to confirm the annual wellness visit yesterday would not take theplace of the [facility] RNCM visit coming up later this month Explained it would not Reviewed her upcoming RNCM, Telemed and next years annual wellness visit dates/times Sisi Orellana RN, BSN [facility] Intake Triage Coordinator [phone] documented in this encounter Plan of Treatment Upcoming Encounters Date Type Specialty Care Team Description 12/04/2022 Home Visit [facility] Priya Ma RN [address] [place] [address] 01/13/2023 Telemedicine [facility] Tamika Garay CRNP [address] [place] [address] Estela Tristan, Community Health Service Station Manager [address] [place] [address] [place] [address] 11/25/2023 Office Visit Family Medicine Angelica Betlran PA-C [address] [facility] [phone] Health Maintenance Due Date Last Done Comments Depression Screening 1952 Zoster Vaccines (2 of 3) 07/14/2011 05/19/2011 DTaP,Tdap,and Td Vaccines (1 - Tdap) 06/09/2012 06/08/2012, 04/08/2007 Albumin/Creatinine Ratio 10/03/2017 10/03/2016, 08/07 COVID-19 Vaccine (3 - Pfizer series) 10/18/2020 08/23/2020, 07/26/2020 CKD PHOS USE SMARTSET [id number] 05/31/2021 03/2 07/2020, 09/14/2019, 05/05/2018, Additional history exists HbA1c 08/09/2022 08/09/2021 Influenza Vaccine (FLU shot) (#1) 2022 01/13/2022, 12/26/2019, 12/17/2018, Additional history exists GFR 02/28/2023 08/29/2022, 0210/2022, 11/21/2020, Additional history exists CKD HGB USE SMARTSET 85182 08/30/202308/29, 08/29/2022, 04/16/2022, Additional history exists Pneumococcal [...] Documents on File Type Date Recorded Patient Radio Installer Automobile Expl anation CASSY 10/13/2018 POL Care Teams Diesel Fleet Mechanic Relationship Specialty Start Date End Date Kamari Strong III, MD [address] [facility] [place] [address] PCP - General 09/21/01 documented as of this encounter
--- OUTSIDE RECORDS SUMMARY | 2023-03-26 00:02 | External Medical Summary | Summary of Care ---
Author Name Unknown Organization [facility] Address [address] [place] [address] Phone [phone] Care Team Providers Care Ambulance Dispatcher Name Role Phone Ligia TURNER MD, Kamari Shell Primary Care Provider [phone] Encounter Details Date Type Department Care Team Description 10/15/2022 Home Visit [facility] [address] [place] [address] Leslie Teixeira PA-C [address] [place] [address] Estela Tristan [facility] [address] [place] [address] Hypertensive kidney disease with stage 3a chronic kidney disease (HCC)*; BPH without obstruction/lower urinary tract symptoms; Moderate persistent asthma without complication; Gastroesophageal reflux disease without esophagitis; Cerebellar ataxia (HCC); Wheelchair dependence Allergies Active Allergy Reactions Severity Noted Date Comments Colchicine 06/07/2008 Mold 06/27/2002 documented as of this encounter (statuses as of 10/15/2022) Medications Medication Sig Dispensed Refills Start Date [...] as of this encounter (statuses as of 10/15/2022) Active Problems Problem Noted Date Wheelchair dependence [...] as of this encounter (statuses as of 10/15/2022) Resolved Problems Problem Noted Date Resolved Date Impacted cerumen of right ear 11/22/2021 Last Assessment & Plan: Irrigation performed 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 EXT ASTHMA W-O STAT ASTH 023 documented as of this encounter (statuses as of 10/15/2022) Immunizations Name Administration Dates Next Due COVID-19 mRNA, LNP-s, No Pre serve, 2-Dose Series (Pfizer) 08/23/2020,07/26/2020 Pneumococcal Conjugate Vacc, 13 Valent (Prevnar) 09/13/2014 Pneumococcal Polysaccharide PPV23 (Pneumovax) 04/21/2005 Seasonal Influenza, Quadriva lent Hd (Fluzone Hd) 01/13/2022 Seasonal Influenza, Quadriva lent, No Preserve, 6 Mons & Above, IM 12/26/2019,12/17/2018,05/05/2018 Seasonal Influenza, Split, I IV3, With Preserve, [...] on file documented as of this encounter Progress Notes * Kelly Marx - 10/15/2022 11:45 AM EDTCHA home visit for telemed with [facility] provider. Resistant to any help in the home. No caregivers other than . Can be home alone for some short period of time. * Leslie Teixeira PA-C - 10/15/2022 11:02 AM EDT Images from the original note were not included. [facility] Problem Oriented Charting Provider Visit Date: 10/15/2022 Time: 11:02 AM [facility] Sub-Program: Primary [facility] at Home [facility] Episode Start Date: Noted: 07/24/2021 Assessment and Plan #1 Hypertensive kidney disease with stage 3a chronic kidney disease (HCC) Overview: Per CKD protocol Assessment & Plan: Current CKD Stage: Stage [...] Additional Comments o Losartan 50 mg daily #2 BPH without obstruction/lower urinary tract symptoms #3 Moderate persistent asthma without complication Assessment & Plan: Not using advair. 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, degenerative progressive disease, hereditary Cant walk, uses a wheelchair Can't feed himself Can take a bath, just sits in the tub Upper body strength is good #6 Wheelchair dependence Assessment & Plan: Cerebellar ataxia is progressing, does not walk, will army crawl to bed and bathroom Check-out note: Please help in scheduling the recommended follow up as listed below: [facility] (see care team) within approx 3 months for Telemedicine Visit Scheduled appointments in the next 60 days: Future Appointments-next 60 days Date/Time Provider Specialty Dept Phone 11/12/2022 10:00 AM Loretta Amezquita RN [facility] [phone] A total of 25 minutes was spent face to face (via video-based telemedicine if designated as a telemedicine visit) Subjective Subjective Is this a Telemedicine Visit? Yes, Patient location: HOME. I was not in a hospital or clinic location. After connecting through televideo, patient was verified with two unique identifiers. Patient (or authorized legal circulation sales representative) was then informed that this was a Telemedicine visit and being conducted confidentially over secure lines. Methods to assure confidentiality were taken. Patient acknowledged consent and understanding of privacy and security of the Telemedicine visit. The patient agreed to participate. Reason For [facility] Visit: Follow-Up Current Concerns: Cerebellar ataxia, HTN, CKD, GERD, non verbal Renny Paul is a 82 year old male seen today for a [facility] provider visit. Today's concerns are: His is 'very burned out' she takes care of him all by herself, he is resistant to caregivers, in talking with her it is status quo and she does get out and she is not sure what to do Has spoken with SW but 'doesn't know what to do' I told her she needs to investigate caregivers forher own sanity When he gets to the point when he cannot take care for himself she will put him in a SNIF He is non verbal Additional Review of Systems Unable to perform ROS: Patient nonverbal Objective Objective There were no vitals filed for this visit. Last Weights: Wt Readings from Last 3 Encounters: 05/05/18 79.8 kg (176 lb) 09/27/16 85.1 kg (187 lb 9.6 oz) 08/20/15 83.9 kg (185 lb) Last BPs: BP Readings from Last 4 Encounters: 08/13/22 108/70 07/16/22 130/68 06/26/22 100/64 05/12/22 122/80 Physical Exam Constitutional: Comments: Non verbal HENT: Head: Normocephalic and atraumatic. Mouth/Throat: Comments: Did not open mouth Eyes: Comments: Eyes closed Cardiovascular: Rate and Rhythm: Normal rate and regular rhythm. Heart sounds: No murmur heard. No gallop. Pulmonary: Effort: Pulmonary effort is normal. Breath sounds: Normal breath sounds. No wheezing, rhonchi or rales. Abdominal: General: Bowel sounds are normal. There is distension. Tenderness: There is no abdominal tenderness. There is no guarding. Genitourinary: Comments: Deferred Musculoskeletal: Right lower leg: No edema. Left lower leg: No edema. Skin: General: Skin is dry. Neurological: Mental Status: He is alert. Mental status is at baseline. He is disoriented. Cranial Nerves: Cranial nerve deficit present. Motor: Weakness present. Coordination: Coordination abnormal. Gait: Gait abnormal (does not walk ). Psychiatric: Comments: Non verbal Lab Review: I have reviewed the following results: BMP results Recent Labs Units 08/29/22 0712 04/16/22 0924 11/21/20 1022 SODIUM - [facility] mmol/L 143 143 142 POTASSIUM - [facility] mmol/L 4.6 4.5 4.1 CHLORIDE - [facility] mmol/L 107 109* 107 CO2 - [facility] mmol/L 25 21* 26 CREATININE - [facility] mg/dL 1.6* 1.3* 1.4* BUN - [facility] mg/dL 22* 15 19 CBC results Recent Labs Units 08/29/22 0712 04/16/22923 WBC AUTO - [facility] K/uL 8.19 9.55 HGB - [facility] g/dL 16.2 14.9 HCT - [facility] % 50.9* 45.8 PLATELET AUTO - [facility] K/uL 233 243 Medication Review "Bottles Out" medication review not performed today due to telehealth, but with medication list reviewed and updated in the EMR as appropriate Mobility Evaluation: MAHC10 Assessment: Does not walk Assistive Devices Used in the Home: Manual Wheelchair Leslie Teixeira PA-C 11:02 AM *Communication sent to PCP (via [facility] if [facility]), [facility] [place] Care Team members,relevant Specialty Care Physicians* documented in this encounter Miscellaneous Notes * Assessment & Plan Note - Leslie Teixeira PA-C - 10/15/2022 11:57 AM EDTAssociated Problem(s): Wheelchair dependence Cerebellar ataxia is progressing, does not walk, will army crawl to bed and bathroom * Assessment & Plan Note - Leslie Teixeira PA-C - 10/15/2022 11:57 AM EDTAssociated Problem(s): Moderate persistent asthma without complication Not using advair. * Assessment & Plan Note - Leslie Teixeira PA-C - 10/15/2022 11:48 AM EDTAssociated Problem(s): Hypertensive kidney disease with stage 3a chronic kidney disease (HCC) Current CKD Stage: Stage III "RED FLAG" [...] Additional Comments o Losartan 50 mg daily * Assessment & Plan Note - Leslie Teixeira PA-C - 10/15/2022 11:38 AM EDTAssociated Problem(s): Cerebellar ataxia (HCC) Hereditary, degenerative progressive disease, hereditary Cant walk, uses a wheelchair Can't feed himself Can take a bath, just sits in the tub Upper body strength is good documented in this encounter Plan of Treatment Upcoming Encounters Date Type Specialty Care Team Description 10/15/2022 Home Visit [facility] Leslie Teixeira PA-C [address] [facility][Note 3] [place] [address] Estela Tristan, [facility] Synoptic Meteorologist [address] [place] [address] [place] [address] Hypertensive kidney disease with stage 3a chronic kidney disease (HCC)*; Moderate persistent asthma without complication; BPH without obstruction/lower urinary tract symptoms; Chronic ischemic heart disease, unspecified; Gastroesophageal reflux disease without esophagitis 11/12/2022 Home Visit [facility] Loretta Amezquita, RN [address] [place] [address] Health Maintenance Due Date Last Done Comments Depression Screening, Annual for Pts 12 and Over 1952 Zoster Vaccines (2 of 3) 07/14/2011 05/19/2011 DTaP,Tdap,and Td Vaccines (1 - Tdap) 06/09/2012 06/08/2012, 04/08/2007 Albumin/Creatinine Ratio 10/03/2017 10/03/2016, 08/07 COVID-19 Vaccine (3 - Pfizer series) 10/18/2020 08/23/2020, 07/26/2020 CKD PHOS USE SMARTSET 22906 05/31/2021 03/07/2020, 09/14/2019, 05/05/2018, Additional history exists HbA1c 08/09/2022 08/09/2021 Influenza Vaccine (FLU shot) (#1) 2022 01/13/2022, 12/26/2019, 12/17/2018, Additional history exists GFR 02/28/2023 08/29/2022, /10/2022, 11/21/2020, Additional history exists CKD HGB USE SMARTSET 51522 08/30/202308/29, 08/29/2022, 04/16/2022, Additional history exists Pneumococcal [...] as of this encounter Visit Diagnoses Diagnosis Hypertensive kidney disease with stage 3a chronic kidney disease (HCC)- Primary Moderate persistent asthma without complication Unspecified asthma BPH without obstruction/lower urinary tract symptoms Hypertrophy of prostate without urinary obstruction and other lower urinary tract symptoms (LUTS) Chronic ischemic heart disease, unspecified Gastroesophageal reflux disease without esophagitis Esophageal reflux Hypertensive kidney disease with stage 3a chronic kidney disease (HCC)- Primary BPH without obstruction/lower urinary tract symptoms Hypertrophy of prostate without urinary obstruction and other lower urinary tract symptoms (LUTS) Moderate persistent asthma without complication Unspecified asthma Gastroesophageal reflux disease without esophagitis Esophageal reflux Cerebellar ataxia (HCC) Other cerebellar ataxia Wheelchair dependence documented in this encounter Advance Directives Documents on File Type Date Recorded Patient Silver Brazer Expl anation POLST 10/13/2018 POLST Care Teams Ambulance Dispatcher Relationship Specialty Start Date End Date Kamari Strong III, MD [address] [place] [id number] PCP - General 09/21/01 documented as of this encounter
--- OUTSIDE RECORDS SUMMARY | 2023-03-26 00:02 | External Medical Summary | Summary of Care ---
Author Name Unknown Organization [facility] Address [address] [place] [address] Phone [phone] Care Team Providers Care Candle Wrapper Name Role Phone Ligia TURNER MD, Kamari Shell Primary Care Provider [phone] Encounter Details Date Type Department Care Team Description 10/15/2022 Home Visit [facility] [address] [place] [address] Leslie Teixeira PA-C [address] [place] [address] Estela Tristan [facility] [address] [place] [address] Hypertensive kidney disease with stage 3a chronic kidney disease (HCC)*; Moderate persistent asthma without complication; BPH without obstruction/lower urinary tract symptoms; Chronic ischemic heart disease, unspecified; Gastroesophageal reflux disease without esophagitis Allergies Active Allergy Reactions Severity Noted Date Comments Colchicine 06/07/2008 Mold 06/27/2002 documented as of this encounter (statuses as of 10/19/2022) Medications Medication Sig Dispensed Refills Start Date [...] as of this encounter (statuses as of 10/19/2022) Active Problems Problem Noted Date Wheelchair dependence [...] as of this encounter (statuses as of 10/19/2022) Resolved Problems Problem Noted Date Resolved Date Impacted cerumen of right ear 11/22/2021 Last Assessment & Plan: Irrigation performed 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 EXT ASTHMA W-O STAT ASTH 023 documented as of this encounter (statuses as of 10/19/2022) Immunizations Name Administration Dates Next Due COVID-19 [...] as of this encounter Progress Notes * Leslie Teixeira PA-C - 10/15/2022 8:49 AM EDT Images from the original note were not included. [facility] Problem Oriented Charting Provider Visit Date: 10/15/2022 Time: 8:49 AM [facility] Sub-Program: Primary Care at Home [facility] Episode Start Date: Noted: 07/24/2021 Assessment and Plan #1 Hypertensive kidney disease with stage 3a chronic kidney disease (HCC) Overview: Per CKD protocol #2 Moderate persistent asthma without complication #3 BPH without obstruction/lower urinary tract symptoms #4 Chronic ischemic heart disease, unspecified #5 Gastroesophageal reflux disease without esophagitis Additional Medical Decision Making: Time changed, new note created Scheduled appointments in the next 60 days: Future Appointments-next 60 days Date/Time Provider Specialty Dept Phone 10/15/2022 3:30 PM Estela Tristan [facility] Data Communications Technician; [facility] [phone] 11/12/2022 10:00 AM Loretta Amezquita RN [facility] [phone] A total of 0 minutes was spent face to face (via video-based telemedicine if designated as a telemedicine visit) Subjective Subjective Is this a Telemedicine Visit? Yes, Patient location: HOME. I was not in a hospital or clinic location. After connecting through televideo, patient was verified with two unique identifiers. Patient (or authorized legal dermatology sales representative) was then informed that this was a Telemedicine visit and being conducted confidentially over secure lines. Methods to assure confidentiality were taken. Patient acknowledged consent and understanding of privacy and security of the Telemedicine visit. The patient agreed to participate. Reason For [facility] Visit: Follow-Up Current Concerns: Renny Paul is a 82 year old male seen today for a [facility] provider visit. Today's concerns are: Additional Objective Objective There were no vitals filed for this visit. Last Weights: Wt Readings from Last 3 Encounters: 05/05/18 79.8 kg (176 lb) 09/27/16 85.1 kg (187 lb 9.6 oz) 08/20/15 83.9 kg (185 lb) Last BPs: BP Readings from Last 4 Encounters: 08/13/22 108/70 07/16/22 130/68 06/26/22 100/64 05/12/22 122/80 Leslie Teixeira PA-C 8:49 AM *Communication sent to PCP (via [facility] if [facility]), [facility] Care Team members,relevant Specialty Care Physicians* documented in this encounter Plan of Treatment Upcoming Encounters Date Type Specialty Care Team Description 11/12/2022 [facility] Loretta Amezquita, RN [address] [place] [address] Health Maintenance Due Date Last Done Comments Depression Screening, Annual for Pts 12 and Over 1952 Zoster Vaccines (2 of 3) 07/14/2011 05/19/2011 DTaP,Tdap,and Td Vaccines (1 - Tdap) 06/09/2012 06/08/2012, 04/08/2007 Albumin/Creatinine Ratio 10/03/2017 10/03/2016, 08/07 COVID-19 Vaccine (3 - Pfizer series) 10/18/2020 08/23/2020, 07/26/2020 CKD PHOS USE SMARTSET [id number] 05/31/2021 03/2 07/2020, 09/14/2019, 05/05/2018, Additional history exists HbA1c 08/09/2022 08/09/2021 Influenza Vaccine (FLU shot) (#1) 2022 01/13/2022, 12/26/2019, 12/17/2018, Additional history exists GFR 02/28/2023 08/29/2022, 02/0 10/2022, 11/21/2020, Additional history exists CKD HGB USE SMARTSET 62681 08/30/202308/29, 08/29/2022, 04/16/2022, Additional history exists Pneumococcal [...] Gastroesophageal reflux disease without esophagitis Esophageal reflux documented in this encounter Advance Directives Documents on File Type Date Recorded Patient Scarf Gluer Expl anation POLST 10/13/2018 POLST Care Teams Candle Wrapper Relationship Specialty Start Date End Date Kamari Strong III, MD [address] [place] [id number] PCP - General 09/21/01 documented as of this encounter
--- OUTSIDE RECORDS SUMMARY | 2023-03-26 00:02 | External Medical Summary | Summary of Care ---
Author Name Unknown Organization [facility] Address [address] [place] [address] Phone [phone] Care Team Providers Care Transportation Director Name Role Phone Ligia TURNER MD, Kamari Shell Primary Care Provider [phone] Reason for Visit * Reason Onset Date Comments Appointment 10/30/2022 Encounter Details Date Type Department Care Team Description 10/30/2022 Telephone [facility] [address] [facility] [place] [address] Services, Scheduling [address] [place] [address] Appointment (//) Allergies Active Allergy Reactions Severity [...] Telephone Encounter - ELIZABETH López - 10/30/2022 11:10 AM EDT vd call to reschedule appt.. Reschedule appt for 11/20 at 10:00am is a good date and time. documented in this encounter Plan of Treatment Upcoming Encounters Date Type Specialty Care Team Description 11/20/2022 Home Visit [facility] Priya Ma, RN [address] [facility] [place] [address] Health Maintenance Due Date Last Done Comments Depression Screening, Annual for Pts 12 and Over 1952 Zoster Vaccines (2 of 3) 07/14/2011 05/19/2011 DTaP,Tdap,and Td Vaccines (1 - Tdap) 06/09/2012 06/08/2012, 04/08/2007 Albumin/Creatinine Ratio 10/03/2017 10/03/2016, 08/07 COVID-19 Vaccine (3 - Pfizer series) 10/18/2020 08/23/2020, 07/26/2020 CKD PHOS USE SMARTSET [id number] 05/31/2021 03/2 07/2020, 09/14/2019, 05/05/2018, Additional history exists HbA1c 08/09/2022 08/09/2021 Influenza Vaccine (FLU shot) (#1) 2022 01/13/2022, 12/26/2019, 12/17/2018, Additional history exists GFR 02/28/2023 08/29/2022, /0 10/2022, 11/21/2020, Additional history exists CKD HGB USE SMARTSET 11986 08/30/202308/29, 08/29/2022, 04/16/2022, Additional history exists Pneumococcal [...] Documents on File Type Date Recorded Patient Stockfeed Miller Expl anation POLST 10/13/2018 POLST Care Teams Transportation Director Relationship Specialty Start Date End Date Kamari Strong III, MD [address] [place] [address], [place] [address] PCP - General 09/21/01 documented as of this encounter
--- OUTSIDE RECORDS SUMMARY | 2023-03-26 00:02 | External Medical Summary | Summary of Care ---
Author Name Unknown Organization [facility] Address [address] [place] [address] Phone [phone] Care Team Providers Care Manager Fixed Income Name Role Phone Ligai TURNER MD, Kamari Shell Primary Care Provider [phone] Encounter Details Date Type Department Care Team Description 10/15/2022 Home Visit [facility] [address] [place] [address] Leslie Teixeira PA-C [address] [place] [address] Estela Tristan [facility] [address] [place] [address] Hypertensive kidney disease with stage 3a chronic [...] Reading Time Taken Comments Blood Pressure 120/70 10/15/2022 1:04 PM EDT Pulse 68 10/15/2022 1:04 PM EDT Temperature 34.5 C (94.1 F) 10/15/2022 1:04 PM ED T Respiratory Rate 18 10/15/2022 1:04 PM EDT Oxygen Saturation 97% 10/15/2022 1:04 PM EDT Inhaled Oxygen Concentration - - Weight - - Height - - Body Mass Index - - documented in this encounter Progress Notes * Estela Tristan, [facility] Electric Truck Operator - 10/15/2022 11:45 AM EDT [facility] Electric Truck Operator Visit Date: 10/15/2022 Time: 1:00 PM Name: Renny Paul : 1940 Referral Source: Provider Source of Information: Caregiver; Name: Christina, and Relationship: Spoken language: Belarusian Patient can read in Belarusian: Yes. Cash Room Clerk needed: No. COVID-19 screening completed: Yes Vitals: Vital signs completed: Yes, vital signs within normal range. BP 120/70 (BP Site: Left Arm, BP Position: Sitting, BP Cuff Size: Regular) | Pulse 68 | Temp (!) 34.5 C (94.1 F) (Infrared ) | Resp 18 | SpO2 97% Condition Changes: Changes in health or social status since last visit: Caregiver reports that he is shaking a lot when eating and holding his utensils, is falling often but not hurting his self in any way, hard to understand when talking, talks very little [place] home visit for telemed with [facility] provider. Resistant to any help in the home. No caregivers other than . Can be home alone for some short period of time. The patient has new concerns since last visit: No Progress towards goals since last visit: See above Medications: Medication review completed? No, Does the patient have barriers to medication adherence? No. Patient reports difficulty paying for medications or might in the future: No. Telehealth: This is a telehealth visit: Yes. Type of telehealth visit: Return/Routine Visit conducted with: Physician/AP Symptoms Surveys and Evaluations: MAHC10 completed this visit: Yes. Score is 4 or more? Yes, notified Provider/Assistant Distribution Manager Last flowsheet values for MAHC10: Age 65+: 1 (05/12/2022 9:00 AM) Diagnosis (3 or more co-existing): 1 (05/12/2022 9:00 AM) Prior history of falls within 3 months: 1 (05/12/2022 9:00 AM) Incontinence: 1 (05/12/2022 9:00 AM) Visual impairment: 1 (05/12/2022 9:00 AM) Impaired functional mobility: 1 (05/12/2022 9:00 AM) Environmental hazards: 1 (05/12/2022 9:00 AM) Poly Pharmacy (4 or more prescriptions - any type): 1 (05/12/2022 9:00 AM) Pain affecting level of function: 0 (05/12/2022 9:00 AM) Cognitive impairment: 1 (05/12/2022 9:00 AM) Score - a score of 4 or more is considered at risk for fallin (05/12/2022 9:00 AM) Home Safety Does member identify any safety issues related to entering or exiting their home? Yes Does the patient need a wheelchair ramp to access the home? Yes Snow/ice removal assistance available? No Is there adequate lighting? Yes Are there railings on stairs? Yes Do sidewalks appear to be in good repair? No Does member identify any safety issues related to the interior of their home? Yes If durable medical equipment is used, halls and doorways easy to navigate? No Are there trip hazards in the home? No Are there working smoke detectors/CO2 detectors? Yes Is a health condition present or an air quality concern that an air conditioner or other coolingdevice will help? No Do stairs in the home have railings? Yes Is there a medical alert or phone near patient? Yes Are walkways clear and well lit? Yes Does member identify any safety issues related to utilizing or accessing the bathroom in their home? Yes Does bathroom have grab bars needed? No The patient reports needing help getting on and off the toilet? No Does the patient report needing help bathing? No Are there any other identified issues/needs? No. If yes specify: Social Determinants of Health: Safety: o Patient reports feeling unsafe in their home: No. Housing: o Patient reports they are at risk of becoming homeless: No. Home/Living situation: o Patient lives alone: No, lives with Christina o Bathroom is located first level o Bedroom is located first level o Patient has to go up and down steps: n No. Patient receives help from family/friends/neighbors/community agencies etc.: Yes. Type of help the patient receives: Children live near and able to help if needed Patient perceives the help they receive as adequate: o Yes. DME: o DME used: Wheelchair o Patient has concerns related to DME: No. Financial: o Patient reports experiencing a financial hardship: No. Employment: o Patient is unemployed or without regular income: No. Utilities: o Patient reports difficulty paying heating, water, or electric bill: No. Transportation: o Patient drives: No. o Does anyone drive patient to appointments and shopping? No. o Patient receives community or public transportation assistance: No. o Patient reports trouble getting a ride to medical visits or work: Never True. Clothing: o Patient reports being unable to get clothing when it was really needed: No. Food insecurity: o Patient has concerns surrounding meals/food: No. o Within the past 12 months patient worried food would run out before having money to buy more: Never True. o Within the past 12 months the food patient bought did not last and did not have money to get more: Never True o Food is needed for this week: No. Caregiver/Childcare: o Patient feels overwhelmed with taking care of a child, family member or friend: No. o If caregiver is present, patient reports adequate support: Yes. Connections: o How often do you feel lonely or isolated from those around you? Never. Plan: Reinforced care plan established by care team 1. To remain at home 2. Get ramp built 3. No falls Reinforced patient's three red flags by the care team 1. Cough, sob, pc-yellow or green 2. Fever, confusion 3. Open areas or red areas on skin Follow Up: Patient encouraged to call the intake phone number for all urgent but not emergent issues. Scheduled to follow up with patient as per scheduled Kelly Marx 10/15/2022 1:00 PM * Leslie Teixeira PA-C - 10/15/2022 11:02 AM EDT Images from the original note were not included. [facility] Problem Oriented Charting Provider Visit Date: 10/15/2022 Time: 11:02 AM [facility] Sub-Program: Primary Care at Home [facility] Episode Start Date: Noted: 07/24/2021 Assessment and [...] the recommended follow up as listed below: [facility] AP (see care team) within approx 3 months for Telemedicine Visit Scheduled appointments in the next 60 days: Future Appointments-next 60 days Date/Time Provider Specialty Dept Phone 11/12/2022 10:00 AM [facility] [phone] A total of 25 minutes was spent face to face (via video-based telemedicine if designated as a telemedicine visit) Subjective Subjective Is this a Telemedicine Visit? Yes, Patient location: HOME. I was not in a hospital or clinic location. After connecting through televideo, patient was verified with two unique identifiers. Patient (or authorized legal junior sales representative) was then informed that this was a Telemedicine visit and being conducted confidentially over secure lines. Methods to assure confidentiality were taken. Patient acknowledged consent and understanding of privacy and security of the Telemedicine visit. The patient agreed to participate. Reason For [facility] Visit: Follow-Up Current Concerns: Cerebellar ataxia, HTN, [...] 11:02 AM *Communication sent to PCP (via [facility] if [facility]), [facility] Care Team members,relevant Specialty Care Physicians* [...] Specialty Care Team Description 10/15/2022 Home Visit [facility] Leslie Teixeira PA-C [address] [facility] [place] [address] Estela Tristan [facility] Electric Truck Operator [address] [place] [address] [place] [address] Hypertensive kidney disease with stage 3a chronic kidney disease (HCC)*; Moderate persistent asthma without complication; BPH without obstruction/lower urinary tract symptoms; Chronic ischemic heart disease, unspecified; Gastroesophageal reflux disease without esophagitis 11/12/2022 Home Visit [facility] Loretta Amezquita RN [address] [place] [address] Health Maintenance Due Date Last Done Comments Depression Screening, Annual for Pts 12 and Over 1952 Zoster Vaccines (2 of 3) 07/14/2011 05/19/2011 DTaP,Tdap,and Td Vaccines (1 - Tdap) 06/09/2012 06/08/2012, 04/08/2007 Albumin/Creatinine Ratio 10/03/2017 10/03/2016, 08/07 COVID-19 Vaccine (3 - Pfizer series) 10/18/2020 08/23/2020, 07/26/2020 CKD PHOS USE SMARTSET 94591 05/31/2021 03/2 07/2020, 09/14/2019, 05/05/2018, Additional history exists HbA1c 08/09/2022 08/09/2021 Influenza Vaccine (FLU shot) (#1) 2022 01/13/2022, 12/26/2019, 12/17/2018, Additional history exists GFR 02/28/2023 08/29/2022, 10/2022, 11/21/2020, Additional history exists CKD HGB USE SMARTSET 02569 08/30/202308/29, 08/29/2022, 04/16/2022, Additional history exists Pneumococcal [...] Documents on File Type Date Recorded Patient Nitroglycerin Neutralizer Expl anation CASSY 10/13/2018 POLST Care Teams Manager Fixed Income Relationship Specialty Start Date End Date Kamari Strong III E, MD [address] [facility] [place] [address] PCP - General 09/21/01 documented as of this encounter
--- OUTSIDE RECORDS SUMMARY | 2023-03-26 00:02 | External Medical Summary | Summary of Care ---
Author Name Unknown Organization [facility] Address [address] [place] [address] Phone [phone] Care Team Providers Care Paper Production Engineer Name Role Phone Ligia TURNER MD, Kamari Shell Primary Care Provider [phone] Encounter Details Date Type Department Care Team Description 10/15/2022 Home Visit [facility] [address] [place] [address] Leslie Teixeira PA-C [address] [place] [address] Estela Tristan [facility] [address] [place] [address] Hypertensive kidney disease with stage 3a chronic [...] this encounter Progress Notes * Estela Tristan, [facility] Small Brake Form Operator - 10/15/2022 11:45 AM EDT [facility] Small Brake Form Operator Visit Date: 10/15/2022 Time: 1:00 PM Name: Renny Paul : 1940 Referral Source: Provider Source of Information: Caregiver; Name: Christina, and Relationship: Spoken language: Divehi Patient can read in Divehi: Yes. Iv Technician needed: No. COVID-19 screening completed: Yes Vitals: [...] little [place] home visit for telemed with [facility] provider. Resistant to any help in the [...] Score is 4 or more? Yes, notified Provider/Plater Helper Last flowsheet values for MAHC10: Age 65+: [...] Provider Visit Date: 10/15/2022 Time: 11:02 AM [facility] Sub-Program: Primary Care at Home [facility] Episode Start Date: Noted: 07/24/2021 Assessment [...] the recommended follow up as listed below: [facility] AP (see care team) within approx 3 months for Telemedicine Visit Scheduled appointments in the next 60 days: Future Appointments-next 60 days Date/Time Provider Specialty Dept Phone 11/12/2022 10:00 AM L[facility] [phone] A total of 25 minutes was spent face to face (via video-based telemedicine if designated as a telemedicine visit) Subjective Subjective Is this a Telemedicine Visit? Yes, Patient location: HOME. I was not in a hospital or clinic location. After connecting through televideo, patient was verified with two unique identifiers. Patient (or authorized legal sales representative groceries) was then informed that this was a Telemedicine visit and being conducted confidentially over secure lines. Methods to assure confidentiality were taken. Patient acknowledged consent and understanding of privacy and security of the Telemedicine visit. The patient agreed to participate. Reason For [facility] Visit: Follow-Up Current Concerns: Cerebellar ataxia, HTN, [...] to perform ROS: Patient nonverbal Objective Objective Vitals: 10/15/22 1304 Temp: (!) 34.5 C (94.1 F) Pulse: 68 Resp: 18 SpO2: 97% BP: 120/70 Last Weights: Wt Readings from Last 3 Encounters: 05/05/18 79.8 kg (176 lb) 09/27/16 85.1 kg (187 lb 9.6 oz) 08/20/15 83.9 kg (185 lb) Last BPs: BP Readings from Last 4 Encounters: 10/15/22 120/70 08/13/22 108/70 07/16/22 130/68 06/26/22 100/64 Physical Exam Constitutional: Comments: Non verbal HENT: [...] in the EMR as appropriate Mobility Evaluation: [facility] Assessment: [facility] ([facility]) Fall Risk Assessment Tool Age 65+: Yes (10/15/221299) Diagnosis (3 or more co-existing): Yes (10/15/221299) Prior history of falls within 3 months: Yes (10/15/221299) Incontinence: No (10/15/221299) Visual impairment: Yes (10/15/221299) Impaired functional mobility: Yes (10/15/221299) Environmental hazards: Yes (10/15/221299) Poly Pharmacy (4 or more prescriptions - any type): Yes (10/15/221299) Pain affecting level of function: No (10/15/221299) Cognitive impairment: Yes (10/15/221299) Score - a score of 4 or more is considered at risk for fallin (10/15/221299) Does not walk Assistive Devices Used in the Home: Manual Wheelchair Leslie Teixeira PA-C 11:02 AM *Communication sent to PCP (via [facility] if [facility]), [facility] Care Team members,relevant Specialty Care Physicians* [...] Specialty Care Team Description 11/12/2022 Home Visit [facility] Loretta Amezquita RN [address] [place] [address] Health Maintenance Due Date Last Done Comments Depression Screening, Annual for Pts 12 and Over 1952 Zoster Vaccines (2 of 3) 07/14/2011 05/19/2011 DTaP,Tdap,and Td Vaccines (1 - Tdap) 06/09/2012 06/08/2012, 04/08/2007 Albumin/Creatinine Ratio 10/03/2017 10/03/2016, 08/07 COVID-19 Vaccine (3 - Pfizer series) 10/18/2020 08/23/2020, 07/26/2020 CKD PHOS USE SMARTSET 70329 05/31/2021 0307/2020, 09/14/2019, 05/05/2018, Additional history exists HbA1c 08/09/2022 08/09/2021 Influenza Vaccine (FLU shot) (#1) 2022 01/13/2022, 12/26/2019, 12/17/2018, Additional history exists GFR 02/28/2023 08/29/2022, 02/0 10/2022, 11/21/2020, Additional history exists CKD HGB USE SMARTSET 75779 08/30/202308/29, 08/29/2022, 04/16/2022, Additional history exists Pneumococcal [...] Documents on File Type Date Recorded Patient Chief Of Staff Doctor Expl anation CASSY 10/13/2018 POLST Care Teams Paper Production Engineer Relationship Specialty Start Date End Date Liiga TURNER, Kamari Shell MD [address] [facility] [place] [address] PCP - General 09/21/01 documented as of this encounter
--- OUTSIDE RECORDS SUMMARY | 2023-03-26 00:03 | External Medical Summary | Summary of Care ---
Author Name Unknown Organization [facility] Address [address] [place] [address] Phone [phone] Care Team Providers Care Solar Installer Technician Name Role Phone Ligia TURNER MD, Kamari Shell Primary Care Provider [phone] Reason for Visit * Reason Onset Date Comments Appointment 10/15/2022 Encounter Details Date Type Department Care Team Description 10/15/2022 Telephone [facility] [address] [facility] [place] [address] Services, Scheduling [address] [place] [address] Appointment (/) Allergies Active Allergy Reactions Severity Noted Date [...] of 10/15/2022) Active Problems Problem Noted Date Chronic ischemic heart disease, unspecif ied 04/10/2022 Last Assessment & Plan: No angina -continue losartan, aspirin, atorvastatin Prediabetes 12/16/2021 Overview: Per Prediabetes protocol Impacted cerumen of right ear 11/22/2021 Last Assessment & Plan: Irrigation performed Otitis externa of right ear 11/22/2021 Last Assessment & Plan: improved Chronic kidney disease, stage 3a 021 Overview: Per CKD protocol Last Assessment & Plan: GFR 55. Stable. Hypertensive kidney disease with stage 3 a chronic kidney disease 12/17/2020 Overview: Per CKD protocol Last Assessment & Plan: The recent blood work. Will order BMP. BPH without obstruction/lower urinary tr act symptoms 05/27/2018 Vitamin D deficiency 05/27/2018 Moderate persistent asthma without compl ication 05/05/2018 Last Assessment & Plan: Still noncompliant with Advair. No recent exacerbations. O2 stable. DYSLIPIDEMIA, GOAL LDL BELOW 100 009 Overview: Per Lipid Taxonomy. Last Assessment & Plan: Lipid panel checked in April 2022. Stable. -continue atorvastatin. ADVANCE DIRECTIVE INFORMATION 04/15/2005 Overview: No, Advance Directive brochure offered , patient declined. 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 documented as of this encounter (statuses as [...] * Telephone Encounter - ELIZABETH López - 10/15/2022 9:22 AM EDT Per Request via TT Estela Tristan she would like us to call pt to see if we can move appt to 11 instead of 3:30... Called s/w pt's she advised 10/15 at 11:00am is a good date and time. documented in this encounter Plan of Treatment Upcoming Encounters Date Type Specialty Care Team Description 10/15/2022 Home Visit [facility] Leslie Teixeira PA-C [address] [facility] [place] [address] [address] [place] [address] 10/15/2022 Home Visit [facility] Leslie Teixeira PA-C [address] [place] [address] Estela Tristan [address] [place] [address] Hypertensive kidney disease with stage 3a chronic kidney disease (HCC)*; Moderate persistent asthma without complication; BPH without obstruction/lower urinary tract symptoms; Chronic ischemic heart disease, unspecified; Gastroesophageal reflux disease without esophagitis 11/12/2022 Home Visit [facility] Loretta Amezquita, RN [address] [place] [address] Health Maintenance Due Date Last Done Comments Depression Screening, Annual for Pts 12 and Over 1952 Zoster Vaccines (2 of 3) 07/14/2011 05/19/2011 DTaP,Tdap,and Td Vaccines (1 - Tdap) 06/09/2012 06/08/2012, 04/08/2007 Albumin/Creatinine Ratio 10/03/2017 10/03/2016, 08/07 COVID-19 Vaccine (3 - Pfizer series) 10/18/2020 08/23/2020, 07/26/2020 CKD PHOS USE SMARTSET 09272 05/31/2021 03/2 07/2020, 09/14/2019, 05/05/2018, Additional history exists HbA1c 08/09/2022 08/09/2021 Influenza Vaccine (FLU shot) (#1) 2022 01/13/2022, 12/26/2019, 12/17/2018, Additional history exists GFR 02/28/2023 08/29/2022, 02/0 10/2022, 11/21/2020, Additional history exists CKD HGB USE SMARTSET 76875 08/30/202308/29, 08/29/2022, 04/16/2022, Additional history exists Pneumococcal [...] Documents on File Type Date Recorded Patient Technical Applications Scientist Expl anation POLST 10/13/2018 POLST Care Teams Solar Installer Technician Relationship Specialty Start Date End Date Ligia TURNER, Kamari Shell MD [address] [place] [address] PCP - General 09/21/01 documented as of this encounter
--- OUTSIDE RECORDS SUMMARY | 2023-03-26 00:03 | External Medical Summary | Summary of Care ---
Author Name Unknown Organization [facility] Address [address] [place] [address] Phone [phone] Care Team Providers Care Provider Contracting Consultant Name Role Phone Ligia TURNER MD, Kamari Shell Primary Care Provider [phone] Reason for Visit * Reason Onset Date Comments Appointment 09/29/2022 Encounter Details Date Type Department Care Team Description 09/29/2022 Telephone [facility] [place] [facility] [address] [place], [place] [id number] Services, Scheduling [address] [place] [address] Appointment (/) Allergies Active Allergy Reactions Severity Noted Date Comments Colchicine 06/07/2008 Mold 06/27/2002 documented as of this encounter (statuses as of 09/29/2022) Medications Medication Sig Dispensed Refills Start Date [...] as of this encounter (statuses as of 09/29/2022) Active Problems Problem Noted Date Chronic ischemic [...] as of this encounter (statuses as of 09/29/2022) Resolved Problems Problem Noted Date Resolved Date 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 documented as of this encounter (statuses as of 09/29/2022) Immunizations Name Administration Dates Next Due COVID-19 [...] Miscellaneous Notes * Telephone Encounter - ELIZABETH Lara - 09/29/2022 4:58 PM EDT Call to spouse and confirmed 10/15 telemed at 330pm, spouse agreeable documented in this encounter Plan of Treatment Upcoming Encounters Date Type Specialty Care Team Description 10/15/2022 Home Visit [facility] Leslie Teixeira PA-C [address] [facility] [place] [address] Estela Tristan, [facility] Reservationist [address] [place] [address] [place] [address] 11/12/2022 Home Visit [facility] Loretta Amezquita, VANESSA [address] [place] [address] Health Maintenance Due Date Last Done Comments Depression Screening, Annual for Pts 12 and Over 1952 Zoster Vaccines (2 of 3) 07/14/2011 05/19/2011 DTaP,Tdap,and Td Vaccines (1 - Tdap) 06/09/2012 06/08/2012, 04/08/2007 Albumin/Creatinine Ratio 10/03/2017 10/03/2016, 08/07 COVID-19 Vaccine (3 - Pfizer series) 10/18/2020 08/23/2020, 07/26/2020 CKD PHOS USE SMARTSET 77512 05/31/2021 03/2 07/2020, 09/14/2019, 05/05/2018, Additional history exists HbA1c 08/09/2022 08/09/2021 Influenza Vaccine (FLU shot) (#1) 2022 01/13/2022, 12/26/2019, 12/17/2018, Additional history exists GFR 02/28/2023 08/29/2022, 10/2022, 11/21/2020, Additional history exists CKD HGB USE SMARTSET 95890 08/30/202308/29, 08/29/2022, 04/16/2022, Additional history exists Pneumococcal [...] Documents on File Type Date Recorded Patient Freezer Worker Expl anation POL 10/13/2018 POLST Care Teams Provider Contracting Consultant Relationship Specialty Start Date End Date Kamari Strong III, MD [address] [place] [address], [place] [address] PCP - General 09/21/01 documented as of this encounter
[2023-03-26 06:50] LABS: Basophils # (auto) 0.04 K/uL (0.00-0.20); Basophils % (auto) 0.3 %; Eosinophils # (auto) 0.03 K/uL (0.00-0.50); Eosinophils % (auto) 0.2 %; Hematocrit (blood only) 40.2 % (42.0-52.0); Hemoglobin 13.4 g/dl (14.0-18.0); Immature Granulocytes # (auto) 0.04 K/uL (0.01-0.20); Immature Granulocytes % (auto) 0.3 %; Lymphocytes # (auto) 0.77 K/uL (1.20-3.40); Lymphocytes % (auto) 5.9 %; Mean Corpuscular Hemoglobin 29.5 pg (25.0-34.0); Mean Corpuscular Hgb Conc 33.3 g/dL (32.0-36.0); Mean Corpuscular Volume 88.4 fL (80.0-100.0); Mean Platelet Volume 9.9 fL (9.4-12.4); Monocytes # (auto) 1.02 K/uL (0.11-0.59); Monocytes % (auto) 7.8 %; Neutrophils # (auto) 11.23 K/uL (1.40-6.50); Neutrophils % (auto) 85.5 %; Platelet Count 216 K/uL (130-400); RDW Coefficient of Variation 13.6 % (11.5-14.5); RDW Standard Deviation 43.9 fL (36.4-46.3); Red Blood Count 4.55 M/uL (4.70-6.10); White Blood Count 13.13 K/ul (4.8-10.8)
[2023-03-26 07:16] LABS: Alanine Aminotransferase 12 U/L (7-52); Albumin Globulin Ratio 1.4 (0.9-2); Albumin Level 3.6 gm/dl (3.4-5.0); Alkaline Phosphatase 55 U/L (34-104); Anion Gap 8 (3-11); BUN Creatinine Ratio 17.2 (10-20); Bilirubin,Total 0.8 mg/dl (0.2-1.0); Blood Urea Nitrogen 23 mg/dl (6-23); Calcium 8.8 mg/dl (8.6-10.3); Carbon Dioxide 22 mmol/L (21-32); Chloride 112 mmol/L (98-107); Creatine Kinase 617 U/L (30-223); Creatinine Clr Calc Pharmacy 35.7 ml/min; Est GFR (Non-African American) 48.3 ml/min; Globulin 2.5 gm/dl (2.5-4.0); Glucose 92 mg/dl (70-99(Fasting)); Sodium 142 mmol/L (136-145); Total Protein 6.1 gm/dl (6.0-8.3)
[2023-03-26] MEDS: DOXYCYCLINE HYCLATE 100 MG CAP PO SCH ×2 (08:33→20:58)
[2023-03-26] MEDS: METOPROLOL TARTRATE 25 MG TAB PO SCH (08:33)
[2023-03-26] MEDS: ASPIRIN 81 MG ECTAB PO SCH (08:33)
[2023-03-26] MEDS: PANTOprazole 40 MG TAB PO SCH (08:34)
[2023-03-26] MEDS: HEPARIN SOD 5,000 UNIT/0.5 ML VIAL SQ SCH ×2 (08:34→20:58)
--- NOTE | 2023-03-26 11:09 | Cardiology Consultation ---
Date of Consultation March 26, 2023 Assessment & Plan (1) PAF (paroxysmal atrial fibrillation): (2) Fall: (3) Weakness: (4) HTN (hypertension): (5) CKD (chronic kidney disease), stage III: (6) Cerebellar degeneration: Plan 83-year-old male admitted after being found on the ground, incidentally observed atrial fibrillation with a rapid ventricular response status post spontaneous conversion back to sinus rhythm without overt clinical sequela. Despite a [id number] Score of 3 points, the risks of anticoagulation appear greater than the benefit. Given history of moderate persistent asthma, active wheezing, and a chart history of coronary artery vasospasm, recommend replacing metoprolol tartrate with short acting Cardizem 30 mg three times per day. Simvastatin 40 mg/day will be replaced with atorvastatin 40 mg/day. Supervising Physician Co-Signing Physician Notes 83-year-old male presents to the emergency department after being found down on the ground. Head trauma noted per CT. Patient unable to offer meaningful history due to underlying dementia. Baseline mental status unknown. PE: VSS. Gen: NAD, awake, follows some commands. Heart: Regular rhythm, normal S1-S2. Soft, 1/6 systolic ejection murmur heard best at the base. Lungs: Poor effort, no rales, rhonchi. Mild expiratory wheeze. Extremities: No edema. Neuro: Moves all extremities. No facial asymmetry. A/P: Agree with above PA-C history, physical exam, assessment and plan. Paroxysmal atrial fibrillation with rapid ventricular response reported on admission. Patient spontaneously converted to sinus rhythm. Risk outweigh benefit of long-term anticoagulation. May continue low-dose aspirin. Agree with trial of calcium channel jeffrey therapy in the setting of moderate persistent asthma. Continue telemetry monitoring. History of Present Illness Reason for Consultation: Atrial fibrillation with rapid ventricular response Requesting Physician: Carly Attending Physician: Ai History of Present Illness Mr. Renny Paul is a 83-year-old male with history of moderate persistent asthma and a history of coronary artery vasospasm, Prinzmetal's variant angina, as well as cerebellar degeneration, hypertension, dyslipidemia, stage III chronic kidney disease, BPH, GERD, depression Patient admitted to [facility] on March 25, 2023 after being found on the floor. EKG revealed new onset atrial fibrillation with a rapid ventricular response. Patient given 5 mg IV Lopressor in the ER with improvement. Thereafter he was started on metoprolol tartrate 12.5 mg twice per day and was noted to spontaneously convert back to sinus rhythm at 22:49 on March 25, 2023. Chest x-ray on admission showed no significant change compared to prior, no acute process. CT scan of the head revealed a small posterior right parietal scalp contusion as well as chronic microvascular ischemic change and a new hypodense focus in the anterior superior left frontal lobe felt to be nonspecific, possibly representing encephalomalacia from chronic insult. Speech unintelligible. No family members at bedside. Answers yes or no questions by shaking head. No chest pain. No palpitations. + Shortness of breath. No cough. No orthopnea. No PND. No peripheral edema. No dizziness. + Headache. No syncope. No fevers. No chills. No melena. No hematochezia. Allergies Allergy/AdvReac Type Severity Reaction Status Date / Time colchicine Allergy Unknown ` Verified 06/08/12 13:06 mold Allergy Unknown ` Verified 06/08/12 13:06 Home Medications Medication Instructions Recorded Confirmed Type aspirin 81 mg tablet,delayed 81 mg PO DAILY 03/25/23 03/25/23 History release losartan 50 mg tablet 50 mg PO DAILY 03/25/23 03/25/23 History omeprazole 40 mg capsule,delayed 40 mg PO DAILY 03/25/23 03/25/23 History release simvastatin 40 mg tablet 40 mg PO HS 03/25/23 03/25/23 History Patient History Medical History Depression GERD (gastroesophageal reflux disease) Asthma Dyslipidemia HTN (hypertension) CKD (chronic kidney disease), stage III 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 Surgical History History of inguinal hernia repair Family History Other Cancer Neurological disorder Social History Smoking Status: Never smoker Second Hand Exposure: No; Do You Dip or Chew Tobacco: No; Hx Alcohol Use: No Hx Substance Use: No Preferred Language: Khmer Communication Ability: Effective Senior Investment Analyst Required: No Beliefs That Will Affect Care: None Current Living Situation: Spouse Other Information That Helps Us Care for You: No Feels Safe at Home: Declines to Answer Assistive Devices: Walker and Wheelchair Review of Systems Review of Systems: Complete review of systems is otherwise as stated above, negative, or noncontributory. Physical Exam Physical Exam: General: NAD. HENT: Normocephalic. Atraumatic. Eyes: PER. Conjunctiva pink, sclera clear. Mouth: Poor dentition Neck: No JVD. Heart: Regular at 70 bpm. No murmur. No rub. Lungs: Diffuse expiratory wheezing. Abdomen: +BS. Soft. Nontender. No masses or organomegaly. Extremities: No clubbing, cyanosis, or edema. Limited neurological examination is without focal deficits. Pulses: Posterior tibial 2/4 Results & Data Vital Signs (Past 12 Hours) Vital Signs Temp Pulse Resp BP Pulse Ox O2 Del Method 03/26/23 07:42 36.6 C 72 24 124/78 Room Air 03/26/23 03:44 36.6 C 70 18 119/65 97 Room Air Laboratory Results Cardiac Enzymes 03/25/23 03/25/23 03/25/23 Range/Units 13:00 15:04 21:18 AST 27 (13-39) U/L Troponin I High Sens 20.3 H 20.2 H 19.2 (0-20) pg/ml 03/26/23 03/26/23 Range/Units 06:24 07:29 AST TNP 27 (13-39) U/L Troponin I High Sens (0-20) pg/ml CBC 03/25/23 03/26/23 Range/Units 13:00 06:24 WBC 14.55 H 13.13 H (4.8-10.8) K/ul RBC 5.47 4.55 L (4.70-6.10) M/uL Hgb 16.0 13.4 L (14.0-18.0) g/dl Hct 47.0 40.2 L (42.0-52.0) % Plt Count 256 216 (130-400) K/uL Neut # (Auto) 13.19 H 11.23 H (1.40-6.50) K/uL Lymph # (Auto) 0.56 L 0.77 L (1.20-3.40) K/uL [place] # (Auto) 0.72 H 1.02 H (0.11-0.59) K/uL Eos # (Auto) 0.00 0.03 (0.00-0.50) K/uL Baso # (Auto) 0.03 0.04 (0.00-0.20) K/uL Comprehensive Metabolic Panel 03/25/23 03/26/23 03/26/23 Range/Units 13:00 06:24 07:29 Sodium 141 142 (136-145) mmol/L Potassium 4.5 TNP 4.0 (3.5-5.1) mmol/L Chloride 108 H 112 H (98-107) mmol/L Carbon Dioxide 24 22 (21-32) mmol/L BUN 25 H 23 (6-23) mg/dl Creatinine 1.59 H 1.34 (0.6-1.4) mg/dl Glucose 80 92 (70-99(Fasting)) mg/dl Calcium 10.3 8.8 (8.6-10.3) mg/dl Direct Bilirubin 0.3 H (0-0.2) mg/dl AST 27 TNP 27 (13-39) U/L ALT 9 12 (7-52) U/L Alkaline Phosphatase 70 55 (34-104) U/L Total Protein 7.1 6.1 (6.0-8.3) gm/dl Albumin 4.2 3.6 (3.4-5.0) gm/dl Intake and Output 03/25/23 03/26/23 03/26/23 22:59 06:59 14:59 Intake Total 2670 / 2670 1000 / 1000 Output Total 450 / 851 401 / 851 Balance 2220 / 1819 -401 / 1819 1000 / 1000 Intake: IV 2550 / 2550 1000 / 1000 Sodium Chloride 0.9% 1,000 ml @ 2500 / 2500 1000 / 1000 80 mls/hr IV .[id number] [facility] Rx#: [id number] cefTRIAXone SODIUM 2,000 mg In 50 / 50 Dextrose 5 % Mini-B 50 ml @ 100 mls/hr IV NOW [facility] Rx#:[id number] Oral 120 / 120 Output: Urine 0 / 0 Urine Amount (Catheter) 450 / 850 400 / 850 Howard/Indwelling 450 / 850 400 / 850 # Bowel Movements Other: Weight 76.4 kg 73.1 kg Weight Measurement Method [facility] Diagnostic Findings EKG on March 25, 2023 personally reviewed, technically limited, revealing probable atrial fibrillation with rapid ventricular response, low voltage QRS, anterolateral ST segment depression, possible old septal infarct. A second EKG on March 25, 2023 was technically improved, clearly revealing atrial fibrillation with a ventricular rate of 128 bpm, low voltage QRS, nonspecific STT wave abnormality. Continuous telemetry monitoring reveals conversion from atrial fibrillation back to sinus rhythm with a small conversion pause at 22:49 on March 25, 2023. EKG this morning reveals sinus rhythm at 69 bpm with a first-degree AV block and inferolateral STT wave changes suggestive of ischemia March 26, 2023 TTE interpretation summary: EF 50 to 55%. Severely dilated left atrium. Mild aortic valve sclerosis without significant stenosis. Mild aortic regurgitation. Mild mitral and tricuspid regurgitation. Estimated systolic pulmonary pressure 38 mmHg. (2) Fall Encounter type: initial encounter Qualified Code(s): W19.XXXA - Unspecified fall, initial encounter (4) HTN (hypertension) Hypertension type: primary hypertension Qualified Code(s): I10 - Essential (primary) hypertension
--- NOTE | 2023-03-26 13:56 | Hospitalist Progress Note ---
Date of Service March 26, 2023 Assessment & Plan (1) Weakness: (2) Fall: (3) Cerebellar degeneration: Plan: Patient is 83 y/o M with PMH cerebellar degeneration, CKD III, HTN, dyslipidemia, GERD, asthma, BPH, depression presented to ER from home with c/o being found on the floor Patient lives at home; is his primary caregiver. CT Head on admission; small posterior right parietal scalp contusion. No acute intracranial abnormality or calvarial fracture. Involutional changes with chronic microvascular ischemic disease. There is a new hypodense focus in the anterior superior left frontal lobe which is nonspecific and possibly represents encephalomalacia from a chronic insult PT OT eval Fall precautions, aspiration precautions Discussed with over the phone on March 26, 2023. Has been increasing difficulty in taking care of the patient over the last several weeks. She reports that patient's condition has declined over the course of months as well. She wants to seek long-term care at SNF. Will appreciate case management assistance. (4) Elevated lactic acid level: Plan: Leukocytosis present procalcitonin: <0.05 Lactate: 2.8 on admission; improved Blood cultures pending CXR: No significant change compared to the prior study. No acute process. Respiratory bio fire negative Urinalysis not suggestive of infection Continue empiric antibiotic for the time being. Discontinue if blood cultures is negative for 48 hours. (5) Atrial fibrillation with RVR: Plan: In ER found to be in atrial fibrillation RVR on EKG Troponin: 20.3-->20.2. Likely elevated secondary to demand ischemia from Patient converted to normal sinus rhythm spontaneously. Echocardiogram showed EF of 50 to 55%; left atrium severely dilated. Patient currently started on Cardizem 30 mg 3 times a day as per cardiology. Not on anticoagulation due to frequent falls. Discussed with regarding risks of stroke while not being on anticoagulation; she verbalized understanding of the risks. Continue telemonitoring (6) CKD (chronic kidney disease), stage III: Plan: Creatinine is around baseline. Monitor renal functions, avoid nephrotoxic agents when possible (7) HTN (hypertension): Plan: Currently on Cardizem. Home losartan on hold (8) Dyslipidemia: Plan: Continue simvastatin (9) Asthma: Plan: Not on inhalers Albuterol nebs as needed (10) GERD (gastroesophageal reflux disease): Plan: Continue PPI DVT Prophylaxis Heparin SQ DNR/DNI Dispositionpatient lives at home with his prior to admission. She was patient to go to SNF for long-term care due to increasing difficulty in taking care of him and increasing needs. PT OT eval ordered. Case management on board. Time spent evaluating patient, direct bedside care, chart review, placing orders, interpretation of diagnostic studies, discussion with consultants, patient, and family members, as well as other required patient management activities is 55-minutes Please note the above document was generated using voice recognition software. It may contain grammatical, syntax or spelling errors. Any formal questions or concerns about the content, text or information contained within the body of this dictation should be directly addressed to the provider for clarification Admission and Anticipated Discharge Date Admission Date: March 25, 2023 Subjective Patient seen and examined at bedside. Overnight, he became agitated and pulled on the Howard resulting in hematuria. No clots observed in the Howard bag. He currently has mittens. He is able to say his name but unable to provide any further information. Review of Systems Review of Systems: Unobtainable due to cognitive status Physical Exam Physical Exam: Constitutional: Awake, able to say his name. Not in any distress. Respiratory: Bilateral vesicular breath sound Cardiovascular: Regular no murmur, no edema Vessels: no JVD or carotid bruit Chest: normal inspection of chest Abdomen: normal bowel sounds, soft, nontender, no hepatosplenomegaly Musculoskeletal: no cyanosis or clubbing, extremities motor strength 5/5. Bruises over his knees. Skin: no rashes, warm and dry normal turgor Neurologic: Awake, oriented to self. Able to follow simple commands. Results & Data Results & Data Vital Signs (Past 12 Hours) Vital Signs Temp Pulse Pulse Resp BP BP Pulse Ox 03/26/23 12:01 36.3 C L 59 L 18 119/71 97 03/26/23 09:00 03/26/23 08:00 75 03/26/23 07:42 36.6 C 72 24 124/78 03/26/23 03:44 36.6 C 70 18 119/65 97 O2 Del Method 03/26/23 12:01 Room Air 03/26/23 09:00 Room Air 03/26/23 08:00 03/26/23 07:42 Room Air 03/26/23 03:44 Room Air
[2023-03-26] MEDS: dilTIAZem HCL 30 MG TAB PO SCH ×2 (14:12→20:57)
[2023-03-26] MEDS: cefTRIAXone SODIUM 2,000 MG in DEXTROSE 5 % MINI-B 50 ML IV SCH (16:03)
[2023-03-26] MEDS: ACETAMINOPHEN 325 MG TAB PO PRN (21:00)
[2023-03-27] MEDS: METOPROLOL TARTRATE 1 MG/ML VIAL IV PRN (02:35)
[2023-03-27] MEDS: ACETAMINOPHEN 325 MG TAB PO PRN (03:19)
[2023-03-27] MEDS ORDERED: METOPROLOL TARTRATE 1 MG/ML VIAL IV STA ×2 (03:37→04:41)
[2023-03-27] MEDS ORDERED: SODIUM CHLORIDE 0.9% 500 ML IV SCH (04:15)
[2023-03-27] MEDS ORDERED: dilTIAZem HCl 5 MG/ML 5 ML VIAL IV STA ×2 (06:08→06:29)
[2023-03-27 06:53] LABS: Basophils # (auto) 0.05 K/uL (0.00-0.20); Basophils % (auto) 0.6 %; Eosinophils # (auto) 0.26 K/uL (0.00-0.50); Eosinophils % (auto) 3.3 %; Hematocrit (blood only) 38.8 % (42.0-52.0); Hemoglobin 13.2 g/dl (14.0-18.0); Immature Granulocytes # (auto) 0.03 K/uL (0.01-0.20); Immature Granulocytes % (auto) 0.4 %; Lymphocytes # (auto) 1.29 K/uL (1.20-3.40); Lymphocytes % (auto) 16.2 %; Mean Corpuscular Hemoglobin 29.5 pg (25.0-34.0); Mean Corpuscular Volume 86.8 fL (80.0-100.0); Mean Platelet Volume 10.3 fL (9.4-12.4); Monocytes # (auto) 0.89 K/uL (0.11-0.59); Monocytes % (auto) 11.2 %; Neutrophils # (auto) 5.44 K/uL (1.40-6.50); Neutrophils % (auto) 68.3 %; Platelet Count 203 K/uL (130-400); RDW Coefficient of Variation 13.4 % (11.5-14.5); RDW Standard Deviation 42.5 fL (36.4-46.3); Red Blood Count 4.47 M/uL (4.70-6.10); White Blood Count 7.96 K/ul (4.8-10.8)
[2023-03-27 07:08] LABS: Albumin Globulin Ratio 1.6 (0.9-2); Albumin Level 3.5 gm/dl (3.4-5.0); BUN Creatinine Ratio 19.4 (10-20); Bilirubin,Total 0.7 mg/dl (0.2-1.0); Calcium 8.5 mg/dl (8.6-10.3); Creatinine Clr Calc Pharmacy 48.3 ml/min; Est GFR (African American) 72.7 ml/min; Est GFR (Non-African American) 62.7 ml/min; Globulin 2.2 gm/dl (2.5-4.0); Potassium 3.6 mmol/L (3.5-5.1); Total Protein 5.7 gm/dl (6.0-8.3)
[2023-03-27] MEDS: PANTOprazole 40 MG TAB PO SCH (07:47)
[2023-03-27] MEDS: ASPIRIN 81 MG ECTAB PO SCH (07:47)
[2023-03-27] MEDS: ATORVASTATIN 40 MG TAB PO SCH (07:48)
[2023-03-27] MEDS: DOXYCYCLINE HYCLATE 100 MG CAP PO SCH ×2 (07:48→20:11)
[2023-03-27] MEDS: dilTIAZem HCL 30 MG TAB PO SCH (07:48)
[2023-03-27] MEDS: HEPARIN SOD 5,000 UNIT/0.5 ML VIAL SQ SCH ×2 (07:48→20:11)
--- NOTE | 2023-03-27 12:28 | Cardiology Progress Note ---
Date of Service March 27, 2023 Assessment & Plan (1) PAF (paroxysmal atrial fibrillation): (2) Fall: (3) Weakness: (4) HTN (hypertension): (5) CKD (chronic kidney disease), stage III: (6) Cerebellar degeneration: Plan 83-year-old male admitted after being found on the ground. Presenting rhythm was atrial fibrillation with a rapid ventricular response status post spontaneous conversion back to sinus rhythm, unfortunately lapsing back into atrial fibrillation with RVR earlier today. Echo this admission with severely dilated left atrium. Options of management discussed with patient. Recommend rate control, utilizing Cardizem given moderate persistent asthma, active wheezing, chart history of coronary artery vasospasm. Cardizem increased to 60 mg 3 times per day. Additional potassium supplementation ordered. Risks of anticoagulation appear to be greater than the benefit despite [id number] score of 3 points. Simvastatin replaced with atorvastatin this admission. Continue telemetry. Admission and Anticipated Discharge Date Admission Date: March 25, 2023 Supervising Physician Co-Signing Physician Notes 83-year-old male presents to the emergency department after being found down on the ground. Head trauma noted per CT. Patient unable to offer meaningful history due to underlying dementia. PE: VSS. Gen: NAD, awake, follows some commands. Heart: Regular rhythm, normal S1-S2. Soft, 1/6 systolic ejection murmur heard best at the base. Lungs: Poor effort, no rales, rhonchi. Mild expiratory wheeze. Extremities: No edema. Neuro: Moves all extremities. No facial asymmetry. A/P: Agree with above PA-C history, physical exam, assessment and plan. Paroxysmal atrial fibrillation with rapid ventricular response reported on admission. Patient spontaneously converted to sinus rhythm. Risk outweigh benefit of long-term anticoagulation. May continue low-dose aspirin. Titrate Cardizem to 60 mg 3 times daily. Continue to monitor telemetry. Subjective Patient seen and examined. Chart, medications, and telemetry reviewed. Patient lapsed back into atrial fibrillation with rapid ventricular response. Questions answered by patient via shaking head yes or no. Denies palpitations. No chest pain. Stable shortness of breath. + wheeze. No edema. Review of Systems Review of Systems: Complete review of systems is otherwise as stated above, negative, or noncontributory. Physical Exam Physical Exam: General: NAD. HENT: Normocephalic. Atraumatic. Eyes: PER. Conjunctiva pink, sclera clear. Mouth: Poor dentition Neck: No JVD. Heart: Irregularly irregular at 110 bpm. No murmur. No rub. Lungs: Diffuse expiratory wheezing. Abdomen: +BS. Soft. Nontender. No masses or organomegaly. Extremities: No clubbing, cyanosis, or edema. Limited neurological examination is without focal deficits. Pulses: Posterior tibial 2/4 Results & Data Vital Signs (Past 12 Hours) Vital Signs Temp Pulse Pulse Resp BP BP BP 03/27/23 11:25 36.4 C L 88 18 94/56 L 03/27/23 07:39 36.5 C 143 H 18 111/64 03/27/23 06:23 136 H 102/71 03/27/23 05:45 129 H 107/65 03/27/23 05:23 119 H 22 115/77 03/27/23 05:00 123 H 115/63 03/27/23 04:56 140 H 112/73 03/27/23 04:41 112/73 03/27/23 03:57 102/66 98/62 L 03/27/23 03:21 115 H 120/75 03/27/23 02:50 120 H 115/87 03/27/23 02:35 135 H 115/87 03/27/23 02:09 36.4 C L 115 H 18 115/87 Pulse Ox O2 Del Method 03/27/23 11:25 93 Room Air 03/27/23 07:39 93 Room Air 03/27/23 06:23 03/27/23 05:45 03/27/23 05:23 93 Room Air 03/27/23 05:00 03/27/23 04:56 03/27/23 04:41 03/27/23 03:57 03/27/23 03:21 03/27/23 02:50 03/27/23 02:35 03/27/23 02:09 94 Room Air Laboratory Results Cardiac Enzymes 03/27/23 Range/Units 05:37 AST 24 (13-39) U/L CBC 03/27/23 Range/Units 05:37 WBC 7.96 (4.8-10.8) K/ul RBC 4.47 L (4.70-6.10) M/uL Hgb 13.2 L (14.0-18.0) g/dl Hct 38.8 L (42.0-52.0) % Plt Count 203 (130-400) K/uL Neut # (Auto) 5.44 (1.40-6.50) K/uL Lymph # (Auto) 1.29 (1.20-3.40) K/uL [place] # (Auto) 0.89 H (0.11-0.59) K/uL Eos # (Auto) 0.26 (0.00-0.50) K/uL Baso # (Auto) 0.05 (0.00-0.20) K/uL Comprehensive Metabolic Panel 03/27/23 Range/Units 05:37 Sodium 140 (136-145) mmol/L Potassium 3.6 (3.5-5.1) mmol/L Chloride 113 H (98-107) mmol/L Carbon Dioxide 19 L (21-32) mmol/L BUN 21 (6-23) mg/dl Creatinine 1.08 (0.6-1.4) mg/dl Glucose 89 (70-99(Fasting)) mg/dl Calcium 8.5 L (8.6-10.3) mg/dl AST 24 (13-39) U/L ALT 10 (7-52) U/L Alkaline Phosphatase 51 (34-104) U/L Total Protein 5.7 L (6.0-8.3) gm/dl Albumin 3.5 (3.4-5.0) gm/dl Intake and Output 03/26/23 03/27/23 03/27/23 22:59 06:59 14:59 Intake Total 170 / 1670 500 / 1670 Balance 170 / 1469 500 / 1469 Intake: IV 50 / 1550 500 / 1550 Sodium Chloride 0.9% 500 ml @ 500 / 500 500 mls/hr IV .Q1H [facility] Rx#: [id number] cefTRIAXone SODIUM 2,000 mg In 50 / 50 Dextrose 5 % Mini-B 50 ml @ 100 mls/hr IV Q24H [facility] Rx#: [id number] Oral 120 / 120 Other: Other Intake Source sips sips # Unmeasured Voids 1 1 1 # Urine Diapers 1 Weight 73.1 kg 75.4 kg Weight Measurement Method Built in [facility] (2) Fall Encounter type: initial encounter Qualified Code(s): W19.XXXA - Unspecified fall, initial encounter (4) HTN (hypertension) Hypertension type: primary hypertension Qualified Code(s): I10 - Essential (primary) hypertension
[2023-03-27] MEDS ORDERED: POTASSIUM CHLORIDE CRTAB 20 MEQ TABCR PO ONE (12:32)
[2023-03-27] MEDS: dilTIAZem HCl 60 MG TAB PO SCH ×2 (14:47→20:11)
--- NOTE | 2023-03-27 15:20 | Hospitalist Progress Note ---
Date of Service March 27, 2023 Assessment & Plan (1) Weakness: (2) Fall: (3) Cerebellar degeneration: Plan: Patient is 83 y/o M with PMH cerebellar degeneration, CKD III, HTN, dyslipidemia, GERD, asthma, BPH, depression presented to ER from home with c/o being found on the floor Patient lives at home; is his primary caregiver. CT Head on admission; small posterior right parietal scalp contusion. No acute intracranial abnormality or calvarial fracture. Involutional changes with chronic microvascular ischemic disease. There is a new hypodense focus in the anterior superior left frontal lobe which is nonspecific and possibly represents encephalomalacia from a chronic insult PT OT eval Fall precautions, aspiration precautions Discussed with over the phone on March 26, 2023. Has been increasing difficulty in taking care of the patient over the last several weeks. She reports that patient's condition has declined over the course of months as well. She wants to seek long-term care at SNF. Will appreciate case management assistance. (4) Elevated lactic acid level: Plan: Leukocytosis present on admission procalcitonin: <0.05 Lactate: 2.8 on admission; improved Blood cultures no growth till date CXR: No significant change compared to the prior study. No acute process. Respiratory bio fire negative Urinalysis not suggestive of infection Continue empiric antibiotic for the time being. Discontinue if blood cultures is negative for 48 hours. (5) Atrial fibrillation with RVR: Plan: In ER found to be in atrial fibrillation RVR on EKG Troponin: 20.3-->20.2. Likely elevated secondary to demand ischemia from Patient converted to normal sinus rhythm spontaneously. However, reverted back to atrial fibrillation with RVR. Echocardiogram showed EF of 50 to 55%; left atrium severely dilated. Cardizem increased to 60 mg 3 times a day. Not on anticoagulation due to frequent falls. Discussed with regarding risks of stroke while not being on anticoagulation; she verbalized understanding of the risks. Continue telemonitoring (6) CKD (chronic kidney disease), stage III: Plan: Creatinine is around baseline. Monitor renal functions, avoid nephrotoxic agents when possible (7) HTN (hypertension): Plan: Currently on Cardizem. Home losartan on hold (8) Dyslipidemia: Plan: Continue simvastatin (9) Asthma: Plan: Not on inhalers Albuterol nebs as needed (10) GERD (gastroesophageal reflux disease): Plan: Continue PPI DVT Prophylaxis Heparin SQ DNR/DNI Dispositionpatient lives at home with his prior to admission. She was patient to go to SNF for long-term care due to increasing difficulty in taking care of him and increasing needs. PT OT eval ordered. Case management on board. Time spent evaluating patient, direct bedside care, chart review, placing orders, interpretation of diagnostic studies, discussion with consultants, patient, and family members, as well as other required patient management activities is 50-minutes Please note the above document was generated using voice recognition software. It may contain grammatical, syntax or spelling errors. Any formal questions or concerns about the content, text or information contained within the body of this dictation should be directly addressed to the provider for clarification Admission and Anticipated Discharge Date Admission Date: March 25, 2023 Subjective Patient seen and examined at bedside. Comfortable; not in distress. Telemetry shows atrial fibrillation with RVR with ventricular rate of 110s to 120s Review of Systems Review of Systems: All systems reviewed & are unremarkable except as noted in Subjective Physical Exam Physical Exam: Constitutional: Awake, able to say his name. Not in any distress. Respiratory: Bilateral vesicular breath sound Cardiovascular: Irregular no murmur, no edema Vessels: no JVD or carotid bruit Chest: normal inspection of chest Abdomen: normal bowel sounds, soft, nontender, no hepatosplenomegaly Musculoskeletal: no cyanosis or clubbing, extremities motor strength 5/5. Bruises over his knees. Skin: no rashes, warm and dry normal turgor Neurologic: Awake, oriented to self. Able to follow simple commands. Results & Data Results & Data Vital Signs (Past 12 Hours) Vital Signs Temp Pulse Pulse Resp BP BP BP 03/27/23 11:25 36.4 C L 88 18 94/56 L 03/27/23 07:39 36.5 C 143 H 18 111/64 03/27/23 06:23 136 H 102/71 03/27/23 05:45 129 H 107/65 03/27/23 05:23 119 H 22 115/77 03/27/23 05:00 123 H 115/63 03/27/23 04:56 140 H 112/73 03/27/23 04:41 112/73 03/27/23 03:57 102/66 98/62 L 03/27/23 03:21 115 H 120/75 Pulse Ox O2 Del Method 03/27/23 11:25 93 Room Air 03/27/23 07:39 93 Room Air 03/27/23 06:23 03/27/23 05:45 03/27/23 05:23 93 Room Air 03/27/23 05:00 03/27/23 04:56 03/27/23 04:41 03/27/23 03:57 03/27/23 03:21 (2) Fall Encounter type: initial encounter Qualified Code(s): W19.XXXA - Unspecified fall, initial encounter (7) HTN (hypertension) Hypertension type: primary hypertension Qualified Code(s): I10 - Essential (primary) hypertension
[2023-03-27] MEDS: cefTRIAXone SODIUM 2,000 MG in DEXTROSE 5 % MINI-B 50 ML IV SCH (17:05)
--- NOTE | 2023-03-27 22:00 | Electrocardiogram Report ---
Test Reason : Blood Pressure : / mmHG Vent. Rate : 122 BPM Atrial Rate : 174 BPM P-R Int : 000 ms QRS Dur : 090 ms QT Int : 338 ms P-R-T Axes : 000 -03 233 degrees QTc Int : 481 ms Atrial fibrillation with rapid ventricular response Septal infarct , age undetermined Prolonged QT Abnormal ECG When compared with ECG of 08-JUN-2012 13:25, Atrial fibrillation has replaced Sinus rhythm Vent. rate has increased BY 50 BPM Septal infarct is now Present Confirmed by Rene Champion ([id number]) on 03/27/2023 9:59:43 PM Referred By: Confirmed By:Rene Champion
--- NOTE | 2023-03-27 22:07 | Electrocardiogram Report ---
Test Reason : Blood Pressure : / mmHG Vent. Rate : 128 BPM Atrial Rate : 000 BPM P-R Int : 000 ms QRS Dur : 090 ms QT Int : 254 ms P-R-T Axes : 000 -13 187 degrees QTc Int : 370 ms Atrial fibrillation with rapid ventricular response Low voltage QRS Nonspecific ST and T wave abnormality Abnormal ECG When compared with ECG of 25-MAR-2023 13:04, Nonspecific T wave abnormality has replaced inverted T waves in Lateral leads Confirmed by Rene Champion ([id number]) on 03/27/2023 10:06:55 PM Referred By: REFERRED SELF Confirmed By:Rene Champion
--- NOTE | 2023-03-27 22:52 | Electrocardiogram Report ---
Test Reason : Blood Pressure : / mmHG Vent. Rate : 069 BPM Atrial Rate : 069 BPM P-R Int : 212 ms QRS Dur : 098 ms QT Int : 444 ms P-R-T Axes : 046 -05 -15 degrees QTc Int : 475 ms Sinus rhythm with 1st degree A-V block Low voltage QRS Abnormal ECG When compared with ECG of 25-MAR-2023 14:13, Sinus rhythm has replaced Atrial fibrillation Vent. rate has decreased BY 59 BPM Confirmed by Rene Champion ([id number]) on 03/27/2023 10:52:24 PM Referred By: REFERRED SELF Confirmed By:Rene Champion
[2023-03-28] MEDS: METOPROLOL TARTRATE 1 MG/ML VIAL IV PRN (03:59)
--- NOTE | 2023-03-28 05:54 | Electrocardiogram Report ---
Test Reason : Blood Pressure : / mmHG Vent. Rate : 065 BPM Atrial Rate : 065 BPM P-R Int : 210 ms QRS Dur : 098 ms QT Int : 450 ms P-R-T Axes : 046 011 015 degrees QTc Int : 468 ms Sinus rhythm with 1st degree A-V block Low voltage QRS Nonspecific T wave abnormality Prolonged QT Abnormal ECG When compared with ECG of 26-MAR-2023 06:17, Nonspecific T wave abnormality has replaced inverted T waves in Anterolateral leads Confirmed by Rene Champion ([id number]) on 03/28/2023 5:54:12 AM Referred By: REFERRED SELF Confirmed By:Rene Champion
[2023-03-28 06:39] LABS: Basophils # (auto) 0.04 K/uL (0.00-0.20); Basophils % (auto) 0.4 %; Eosinophils # (auto) 0.07 K/uL (0.00-0.50); Eosinophils % (auto) 0.6 %; Hematocrit (blood only) 40.3 % (42.0-52.0); Hemoglobin 13.9 g/dl (14.0-18.0); Immature Granulocytes # (auto) 0.04 K/uL (0.01-0.20); Immature Granulocytes % (auto) 0.4 %; Lymphocytes # (auto) 0.96 K/uL (1.20-3.40); Lymphocytes % (auto) 8.7 %; Mean Corpuscular Hemoglobin 30.2 pg (25.0-34.0); Mean Corpuscular Hgb Conc 34.5 g/dL (32.0-36.0); Mean Corpuscular Volume 87.4 fL (80.0-100.0); Mean Platelet Volume 10.4 fL (9.4-12.4); Monocytes # (auto) 0.78 K/uL (0.11-0.59); Monocytes % (auto) 7.1 %; Neutrophils # (auto) 9.14 K/uL (1.40-6.50); Neutrophils % (auto) 82.8 %; Platelet Count 237 K/uL (130-400); RDW Coefficient of Variation 13.5 % (11.5-14.5); RDW Standard Deviation 43.2 fL (36.4-46.3); Red Blood Count 4.61 M/uL (4.70-6.10); White Blood Count 11.03 K/ul (4.8-10.8)
--- NOTE | 2023-03-28 06:41 | Electrocardiogram Report ---
Test Reason : Blood Pressure : / mmHG Vent. Rate : 121 BPM Atrial Rate : 101 BPM P-R Int : 000 ms QRS Dur : 096 ms QT Int : 260 ms P-R-T Axes : 000 -11 212 degrees QTc Int : 369 ms Atrial fibrillation with rapid ventricular response Low voltage QRS Cannot rule out Anterior infarct , age undetermined Nonspecific ST and T wave abnormality Abnormal ECG When compared with ECG of 26-MAR-2023 10:42, Atrial fibrillation has replaced Sinus rhythm Vent. rate has increased BY 56 BPM Confirmed by Rene Champion ([id number]) on 03/28/2023 6:41:10 AM Referred By: REFERRED SELF Confirmed By:Rene Champion
[2023-03-28 06:54] LABS: BUN Creatinine Ratio 20.8 (10-20); Calcium 9.3 mg/dl (8.6-10.3); Creatinine Clr Calc Pharmacy 48.9 ml/min; Est GFR (African American) 74.3 ml/min; Est GFR (Non-African American) 64.1 ml/min; Potassium 4.1 mmol/L (3.5-5.1)
[2023-03-28] MEDS: dilTIAZem HCl 60 MG TAB PO SCH ×3 (07:56→20:18)
[2023-03-28] MEDS: HEPARIN SOD 5,000 UNIT/0.5 ML VIAL SQ SCH ×2 (07:58→20:18)
[2023-03-28] MEDS: PANTOprazole 40 MG TAB PO SCH (07:58)
[2023-03-28] MEDS: DOXYCYCLINE HYCLATE 100 MG CAP PO SCH ×2 (07:58→20:18)
[2023-03-28] MEDS: ASPIRIN 81 MG ECTAB PO SCH (07:58)
[2023-03-28] MEDS: ATORVASTATIN 40 MG TAB PO SCH (07:58)
[2023-03-28] MEDS ORDERED: METOPROLOL TARTRATE 25 MG TAB PO SCH ×2 (09:15→21:00)
[2023-03-28] MEDS ORDERED: METOPROLOL TARTRATE 25 MG TAB PO ONE (11:38)
--- NOTE | 2023-03-28 12:15 | Hospitalist Progress Note ---
Date of Service March 28, 2023 Assessment & Plan (1) Weakness: (2) Fall: (3) Cerebellar degeneration: Plan: Patient is 83 y/o M with PMH cerebellar degeneration, CKD III, HTN, dyslipidemia, GERD, asthma, BPH, depression presented to ER from home with c/o being found on the floor Patient lives at home; is his primary caregiver. CT Head on admission; small posterior right parietal scalp contusion. No acute intracranial abnormality or calvarial fracture. Involutional changes with chronic microvascular ischemic disease. There is a new hypodense focus in the anterior superior left frontal lobe which is nonspecific and possibly represents encephalomalacia from a chronic insult PT OT eval Fall precautions, aspiration precautions Discussed with over the phone on March 26, 2023. Has been increasing difficulty in taking care of the patient over the last several weeks. She reports that patient's condition has declined over the course of months as well. She wants to seek long-term care at SNF. Will appreciate case management assistance. (4) Elevated lactic acid level: Plan: Leukocytosis present on admission procalcitonin: <0.05 Lactate: 2.8 on admission; improved Blood cultures no growth till date CXR: No significant change compared to the prior study. No acute process. Respiratory bio fire negative Urinalysis not suggestive of infection Patient was placed on empiric antibiotics with ceftriaxone. Discontinued as blood cultures are negative. (5) Atrial fibrillation with RVR: Plan: In ER found to be in atrial fibrillation RVR on EKG Troponin: 20.3-->20.2. Likely elevated secondary to demand ischemia from Patient converted to normal sinus rhythm spontaneously. However, reverted back to atrial fibrillation with RVR. Echocardiogram showed EF of 50 to 55%; left atrium severely dilated. Cardizem increased to 60 mg 3 times a day. Difficulty in controlling ventricular rate; will start metoprolol 50 mg twice daily. Appreciate cardiology input. Not on anticoagulation due to frequent falls. Discussed with regarding risks of stroke while not being on anticoagulation; she verbalized understanding of the risks. Continue telemonitoring (6) CKD (chronic kidney disease), stage III: Plan: Creatinine is around baseline. Monitor renal functions, avoid nephrotoxic agents when possible (7) HTN (hypertension): Plan: Currently on Cardizem. Metoprolol was also started. (8) Dyslipidemia: Plan: Continue simvastatin (9) Asthma: Plan: Not on inhalers Albuterol nebs as needed (10) GERD (gastroesophageal reflux disease): Plan: Continue PPI DVT Prophylaxis Heparin SQ DNR/DNI Dispositionpatient lives at home with his prior to admission. She was patient to go to SNF for long-term care due to increasing difficulty in taking care of him and increasing needs. PT OT eval ordered. Case management on board. Time spent evaluating patient, direct bedside care, chart review, placing orders, interpretation of diagnostic studies, discussion with consultants, patient, and family members, as well as other required patient management activities is 50-minutes Please note the above document was generated using voice recognition software. It may contain grammatical, syntax or spelling errors. Any formal questions or concerns about the content, text or information contained within the body of this dictation should be directly addressed to the provider for clarification Admission and Anticipated Discharge Date Admission Date: March 25, 2023 Subjective Patient seen and examined at bedside. He appears comfortable; denies chest pain or palpitation. Reports pain on his head. Telemetry shows atrial fibrillation with ventricular rate in 120s to 130s overnight. Review of Systems Review of Systems: All systems reviewed & are unremarkable except as noted in Subjective Physical Exam Physical Exam: Constitutional: Awake, able to say his name. Not in any distress. Respiratory: Bilateral vesicular breath sound Cardiovascular: Irregular no murmur, no edema Vessels: no JVD or carotid bruit Chest: normal inspection of chest Abdomen: normal bowel sounds, soft, nontender, no hepatosplenomegaly Musculoskeletal: no cyanosis or clubbing, extremities motor strength 5/5. Bruises over his knees. Skin: no rashes, warm and dry normal turgor Neurologic: Awake, oriented to self. Able to follow simple commands. Results & Data Results & Data Vital Signs (Past 12 Hours) Vital Signs Temp Pulse Pulse Resp BP BP Pulse Ox 03/28/23 11:12 36.6 C 135 H 25 H 113/71 96 03/28/23 09:37 03/28/23 07:39 36.4 C L 100 H 25 H 91/65 L 97 03/28/23 04:14 89 03/28/23 03:59 127 H 102/62 03/28/23 03:24 36.8 C 69 22 104/60 94 O2 Del Method 03/28/23 11:12 Room Air 03/28/23 09:37 Room Air 03/28/23 07:39 Room Air 03/28/23 04:14 03/28/23 03:59 03/28/23 03:24 Room Air (2) Fall Encounter type: initial encounter Qualified Code(s): W19.XXXA - Unspecified fall, initial encounter (7) HTN (hypertension) Hypertension type: primary hypertension Qualified Code(s): I10 - Essential (primary) hypertension
--- NOTE | 2023-03-28 19:28 | Cardiology Progress Note ---
Date of Service March 28, 2023 Assessment & Plan (1) PAF (paroxysmal atrial fibrillation): Plan: pt continues to have AF with RVR he is demented but does not seem to be symptomatic he had some slower rates earlier this morning again seemed to be asymptomatic agree wiht increasing diltiazem to 4x a day no metoprolol no AC due to fall risk but on ASA (2) Fall: (3) Weakness: (4) HTN (hypertension): Plan: on the lower side (5) CKD (chronic kidney disease), stage III: (6) Cerebellar degeneration: (7) Dyslipidemia: Plan: continue statin Plan 83y/o male with advanced dementia and AF with RVR-had some brief slower HR this morning i think it is ok to have higher dose of diltiazem 4x a day i do not think we need to do any further and i think this will be enough for discharge no metoprolol ASA due to fall risk no AC please re-consult as necessary d/w the hospitalist via tiger text he agreed with my plan Admission and Anticipated Discharge Date Admission Date: March 25, 2023 Subjective Patient seen and examined at the bedside earlier this afternoon no events overnight pt is demented and unable to give any history to how he is feeling overall HR overnight better but this morning still elevated Review of Systems Review of Systems: Unobtainable due to cognitive status Physical Exam Physical Exam: alert and awake, NAD NC/AT, EOMI Supple No JVD irregular/irregular S1/S2, + murmur CTA b/l no w/r/r soft nt/nd no LE edema b/l +demented Results & Data Vital Signs (Past 12 Hours) Vital Signs Temp Pulse Pulse Resp BP BP Pulse Ox 03/28/23 19:12 36.4 C L 72 21 105/69 97 03/28/23 15:33 89 03/28/23 15:13 36.4 C L 92 H 26 H 115/70 94 03/28/23 11:12 36.6 C 135 H 25 H 113/71 96 03/28/23 09:37 03/28/23 08:00 89 03/28/23 07:39 36.4 C L 100 H 25 H 91/65 L 97 O2 Del Method 03/28/23 19:12 Room Air 03/28/23 15:33 03/28/23 15:13 Room Air 03/28/23 11:12 Room Air 03/28/23 09:37 Room Air 03/28/23 08:00 03/28/23 07:39 Room Air Laboratory Results CBC 03/28/23 Range/Units 05:46 WBC 11.03 H (4.8-10.8) K/ul RBC 4.61 L (4.70-6.10) M/uL Hgb 13.9 L (14.0-18.0) g/dl Hct 40.3 L (42.0-52.0) % Plt Count 237 (130-400) K/uL Neut # (Auto) 9.14 H (1.40-6.50) K/uL Lymph # (Auto) 0.96 L (1.20-3.40) K/uL [place] # (Auto) 0.78 H (0.11-0.59) K/uL Eos # (Auto) 0.07 (0.00-0.50) K/uL Baso # (Auto) 0.04 (0.00-0.20) K/uL Comprehensive Metabolic Panel 03/28/23 Range/Units 05:46 Sodium 141 (136-145) mmol/L Potassium 4.1 (3.5-5.1) mmol/L Chloride 111 H (98-107) mmol/L Carbon Dioxide 22 (21-32) mmol/L BUN 22 (6-23) mg/dl Creatinine 1.06 (0.6-1.4) mg/dl Glucose 118 H (70-99(Fasting)) mg/dl Calcium 9.3 (8.6-10.3) mg/dl Intake and Output 03/28/23 03/28/23 03/28/23 06:59 14:59 22:59 Intake Total 240 / 240 Output Total 375 / 375 Balance -375 / 375 240 / 240 Intake: Oral 240 / 240 Output: Urine Amount (Catheter) 375 / 375 External 375 / 375 Other: Weight 74.5 kg Weight Measurement Method [facility] Medications Administered Current Inpatient Medications Acetaminophen (Acetaminophen 325 Mg Tab) 650 mg PO Q4H PRN PRN Reason: Pain or Fever Stop: 04/24/23 18:14 Last Admin: 03/27/23 03:19 Dose: 650 mg Aspirin (Aspirin 81 Mg Ectab) 81 mg PO DAILY CARLOS Stop: 04/25/23 08:59 Last Admin: 03/28/23 07:58 Dose: 81 mg Atorvastatin Calcium (Atorvastatin 40 Mg Tab) 40 mg PO QAM [facility] Stop: 04/26/23 08:59 Last Admin: 03/28/23 07:58 Dose: 40 mg Diltiazem HCl (Diltiazem Hcl 60 Mg Tab) 60 mg PO QID [facility] Stop: 04/27/23 20:59 Doxycycline Hyclate (Doxycycline Hyclate 100 Mg Cap) 100 mg PO BID [facility] Stop: 04/01/23 20:59 Last Admin: 03/28/23 07:58 Dose: 100 mg Heparin Sodium (Porcine) (Heparin Sod 5,000 Unit/0.5 Ml Vial) 5,000 units SQ Q12 [facility] Stop: 04/24/23 20:59 Last Admin: 03/28/23 07:58 Dose: 5,000 units Levalbuterol HCl (Levalbuterol 1.25 Mg/3 Ml Neb) 1.25 mg NEB Q6H PRN; Protocol PRN Reason: Shortness Of Breath Or Wheezing Stop: 04/24/23 20:59 Metoprolol Tartrate (Metoprolol Tartrate 1 Mg/Ml Vial) 5 mg IV Q6 PRN PRN Reason: Tachycardia Stop: 04/25/23 00:00 Last Admin: 03/28/23 03:59 Dose: 5 mg Ondansetron HCl (Ondansetron Inj 2 Mg/Ml 2 Ml Vial) 4 mg IV Q6H PRN PRN Reason: Nausea Stop: 04/24/23 18:14 Pantoprazole Sodium (Pantoprazole 40 Mg Tab) 40 mg PO DAILY [facility] Stop: 04/25/23 08:59 Last Admin: 03/28/23 07:58 Dose: 40 mg Polyethylene Glycol (Polyethylene (Miralax) 17 Gm Pack) 17 gm PO DAILY PRN PRN Reason: Constipation Stop: 04/24/23 18:14 (2) Fall Encounter type: initial encounter Qualified Code(s): W19.XXXA - Unspecified fall, initial encounter (4) HTN (hypertension) Hypertension type: primary hypertension Qualified Code(s): I10 - Essential (primary) hypertension
[2023-03-28] MEDS ORDERED: METOPROLOL TARTRATE 50 MG TAB PO SCH (21:00)
[2023-03-29] MEDS: METOPROLOL TARTRATE 1 MG/ML VIAL IV PRN (05:42)
[2023-03-29 06:48] LABS: Basophils # (auto) 0.04 K/uL (0.00-0.20); Basophils % (auto) 0.4 %; Eosinophils # (auto) 0.11 K/uL (0.00-0.50); Eosinophils % (auto) 1.1 %; Hematocrit (blood only) 41.9 % (42.0-52.0); Immature Granulocytes # (auto) 0.02 K/uL (0.01-0.20); Immature Granulocytes % (auto) 0.2 %; Lymphocytes # (auto) 0.89 K/uL (1.20-3.40); Mean Corpuscular Hemoglobin 29.4 pg (25.0-34.0); Mean Corpuscular Hgb Conc 33.4 g/dL (32.0-36.0); Mean Platelet Volume 10.2 fL (9.4-12.4); Monocytes # (auto) 0.73 K/uL (0.11-0.59); Monocytes % (auto) 7.4 %; Neutrophils # (auto) 8.08 K/uL (1.40-6.50); Neutrophils % (auto) 81.9 %; Platelet Count 230 K/uL (130-400); RDW Coefficient of Variation 13.6 % (11.5-14.5); RDW Standard Deviation 43.9 fL (36.4-46.3); Red Blood Count 4.76 M/uL (4.70-6.10); White Blood Count 9.87 K/ul (4.8-10.8)
[2023-03-29 07:04] LABS: BUN Creatinine Ratio 22.5 (10-20); Calcium 9.3 mg/dl (8.6-10.3); Creatinine Clr Calc Pharmacy 50.9 ml/min; Est GFR (African American) 77.9 ml/min; Est GFR (Non-African American) 67.2 ml/min; Potassium 3.9 mmol/L (3.5-5.1)
[2023-03-29] MEDS: ATORVASTATIN 40 MG TAB PO SCH (07:52)
[2023-03-29] MEDS: HEPARIN SOD 5,000 UNIT/0.5 ML VIAL SQ SCH ×2 (07:52→21:57)
[2023-03-29] MEDS: DOXYCYCLINE HYCLATE 100 MG CAP PO SCH ×2 (07:52→21:56)
[2023-03-29] MEDS: ASPIRIN 81 MG ECTAB PO SCH (07:52)
[2023-03-29] MEDS: dilTIAZem HCl 60 MG TAB PO SCH ×4 (07:52→21:58)
[2023-03-29] MEDS: PANTOprazole 40 MG TAB PO SCH (07:52)
--- NOTE | 2023-03-29 12:36 | Hospitalist Progress Note ---
Date of Service March 29, 2023 Assessment & Plan (1) Weakness: (2) Fall: (3) Cerebellar degeneration: Plan: Patient is 83 y/o M with PMH cerebellar degeneration, CKD III, HTN, dyslipidemia, GERD, asthma, BPH, depression presented to ER from home with c/o being found on the floor Patient lives at home; is his primary caregiver. CT Head on admission; small posterior right parietal scalp contusion. No acute intracranial abnormality or calvarial fracture. Involutional changes with chronic microvascular ischemic disease. There is a new hypodense focus in the anterior superior left frontal lobe which is nonspecific and possibly represents encephalomalacia from a chronic insult PT OT eval Fall precautions, aspiration precautions Discussed with patient's and daughter at bedside on March 28, 2023. It has been increasing difficulty in taking care of the patient over the last several weeks. She reports that patient's physical condition has declined over the course of months as well. Discussed possible hospice care at home that will enable family with extra support. They are open to the idea. Plan for hospice at home at discharge or short-term rehab stay (4) Elevated lactic acid level: Plan: Leukocytosis present on admission procalcitonin: <0.05 Lactate: 2.8 on admission; improved Blood cultures no growth till date CXR: No significant change compared to the prior study. No acute process. Respiratory bio fire negative Urinalysis not suggestive of infection Patient was placed on empiric antibiotics with ceftriaxone. Discontinued as blood cultures are negative. (5) Atrial fibrillation with RVR: Plan: In ER found to be in atrial fibrillation RVR on EKG Troponin: 20.3-->20.2. Likely elevated secondary to demand ischemia from Patient converted to normal sinus rhythm spontaneously. However, reverted back to atrial fibrillation with RVR. Echocardiogram showed EF of 50 to 55%; left atrium severely dilated. Cardizem increased to 60 mg 4 times a day. Difficulty in controlling ventricular rate; was started on metoprolol as well; patient had 2 to 3-second pauses. Cardiology recommends to continue only on Cardizem. Not on anticoagulation due to frequent falls. Discussed with regarding risks of stroke while not being on anticoagulation; she verbalized understanding of the risks. Continue telemonitoring (6) CKD (chronic kidney disease), stage III: Plan: Creatinine is around baseline. Monitor renal functions, avoid nephrotoxic agents when possible (7) HTN (hypertension): Plan: Currently on Cardizem. (8) Dyslipidemia: Plan: Continue simvastatin (9) Asthma: Plan: Not on inhalers Albuterol nebs as needed (10) GERD (gastroesophageal reflux disease): Plan: Continue PPI DVT Prophylaxis Heparin SQ DNR/DNI Dispositionpatient lives at home with his prior to admission. Plan to discharge in next few days to home with hospice versus short-term rehab stay. Case management on board Time spent evaluating patient, direct bedside care, chart review, placing orders, interpretation of diagnostic studies, discussion with consultants, patient, and family members, as well as other required patient management activities is 50-minutes Please note the above document was generated using voice recognition software. It may contain grammatical, syntax or spelling errors. Any formal questions or concerns about the content, text or information contained within the body of this dictation should be directly addressed to the provider for clarification Admission and Anticipated Discharge Date Admission Date: March 25, 2023 Subjective Patient seen and examined at bedside. He is sleeping but easily awakened well. He reports headache; denies any other complaint. Telemetry shows atrial fibrillation with ventricular rate of 120s to 130s Review of Systems Review of Systems: All systems reviewed & are unremarkable except as noted in Subjective Physical Exam Physical Exam: Constitutional: Awake, able to say his name. Not in any distress. Respiratory: Bilateral vesicular breath sound Cardiovascular: Irregular no murmur, no edema Vessels: no JVD or carotid bruit Chest: normal inspection of chest Abdomen: normal bowel sounds, soft, nontender, no hepatosplenomegaly Musculoskeletal: no cyanosis or clubbing, extremities motor strength 5/5. Bruises over his knees. Skin: no rashes, warm and dry normal turgor Neurologic: Awake, oriented to self. Able to follow simple commands. Results & Data Results & Data Vital Signs (Past 12 Hours) Vital Signs Temp Pulse Pulse Resp BP BP BP 03/29/23 11:50 36.3 C L 90 26 H 108/69 03/29/23 09:59 03/29/23 07:34 36.4 C L 118 H 26 H 142/97 H 03/29/23 05:57 105 H 134/68 03/29/23 05:42 135 H 128/72 03/29/23 03:04 36.8 C 58 L 25 H 134/75 03/29/23 02:19 Pulse Ox O2 Del Method 03/29/23 11:50 96 Room Air 03/29/23 09:59 Room Air 03/29/23 07:34 99 Room Air 03/29/23 05:57 03/29/23 05:42 03/29/23 03:04 97 Room Air 03/29/23 02:19 Room Air (2) Fall Encounter type: initial encounter Qualified Code(s): W19.XXXA - Unspecified fall, initial encounter (7) HTN (hypertension) Hypertension type: primary hypertension Qualified Code(s): I10 - Essential (primary) hypertension
[2023-03-30 06:53] LABS: Basophils # (auto) 0.05 K/uL (0.00-0.20); Basophils % (auto) 0.5 %; Eosinophils # (auto) 0.19 K/uL (0.00-0.50); Hematocrit (blood only) 40.9 % (42.0-52.0); Immature Granulocytes # (auto) 0.04 K/uL (0.01-0.20); Immature Granulocytes % (auto) 0.4 %; Lymphocytes # (auto) 1.23 K/uL (1.20-3.40); Lymphocytes % (auto) 12.9 %; Mean Corpuscular Hemoglobin 29.4 pg (25.0-34.0); Mean Corpuscular Hgb Conc 34.2 g/dL (32.0-36.0); Mean Corpuscular Volume 85.7 fL (80.0-100.0); Mean Platelet Volume 10.4 fL (9.4-12.4); Monocytes # (auto) 0.88 K/uL (0.11-0.59); Monocytes % (auto) 9.3 %; Neutrophils # (auto) 7.11 K/uL (1.40-6.50); Neutrophils % (auto) 74.9 %; Platelet Count 241 K/uL (130-400); RDW Coefficient of Variation 13.5 % (11.5-14.5); RDW Standard Deviation 42.4 fL (36.4-46.3); Red Blood Count 4.77 M/uL (4.70-6.10)
[2023-03-30 07:16] LABS: Albumin Globulin Ratio 1.6 (0.9-2); Albumin Level 3.6 gm/dl (3.4-5.0); BUN Creatinine Ratio 21.4 (10-20); Bilirubin,Total 0.8 mg/dl (0.2-1.0); Calcium 9.3 mg/dl (8.6-10.3); Creatinine Clr Calc Pharmacy 52.9 ml/min; Est GFR (African American) 81.7 ml/min; Est GFR (Non-African American) 70.5 ml/min; Globulin 2.3 gm/dl (2.5-4.0); Total Protein 5.9 gm/dl (6.0-8.3)
[2023-03-30] MEDS: DOXYCYCLINE HYCLATE 100 MG CAP PO SCH (09:09)
[2023-03-30] MEDS: HEPARIN SOD 5,000 UNIT/0.5 ML VIAL SQ SCH ×2 (09:09→20:43)
[2023-03-30] MEDS: ASPIRIN 81 MG ECTAB PO SCH (09:09)
[2023-03-30] MEDS: PANTOprazole 40 MG TAB PO SCH (09:09)
[2023-03-30] MEDS: ATORVASTATIN 40 MG TAB PO SCH (09:09)
[2023-03-30] MEDS: dilTIAZem HCl 60 MG TAB PO SCH ×4 (09:09→20:43)
--- NOTE | 2023-03-30 11:45 | Cardiology Progress Note ---
Date of Service March 30, 2023 Assessment & Plan (1) PAF (paroxysmal atrial fibrillation): (2) Fall: (3) Weakness: (4) HTN (hypertension): (5) CKD (chronic kidney disease), stage III: (6) Cerebellar degeneration: Plan IMPRESSION: -83 y/o male with advanced dementia and AF with RVR-had some brief slower HR on 03/28/2023 am. Rates have been persistently elevated this am 130-160s, symptomatic with chest pressure/left arm pain and shortness of breath. -Elevated [id number] score of 3, anticoagulation deferred due to high fall/bleeding risk. Only on aspirin 81 mg daily. -Low normal LVEF on echo 03/26/2023m severly enlarged LA-- unlikely to maintain SR. -Lungs are course and patient is visibly dyspneic. Appears volume overloaded on exam. PLAN: AFIB with RVR: -Patient appears volume overloaded, will give a one time dose of IV Lasix 40 mg and monitor response. CXR ordered. -? Escalation of CCB as a cause of volume overload vs ongoing tachycardic rates in AFIB -For now continue Diltazem 60 mg QID, will give a single dose of IV Lopressor 2.5 mg to see if this improves rates. -Remain on telemetry and monitor for bradyarrhythmias. Patient is borderline TBS. -Monitor renal function and electrolytes. Maintain a potassium goal of 4.0 and mag of 2.0. No AC due to elevated bleeding risk/fall risk-- only on ASA 81 mg daily, continue. Case discussed with Dr. Holt. I spent a total of 40 minutes on the date of service in preparation, delivery, and documentation of the care provided to the patient excluding any time spent in the performance of separately billed services. DEANA Lux Department of Cardiology, [facility] This chart was completed in part utilizing Speech Voice Recognition Software. Grammatical errors, random word insertions, pronoun errors, and incomplete sentences are an occasional consequence of this system due to software limitations, ambient noise, and hardware issues. Any formal questions or concerns about the content, text, or information contained within the body of t his dictation should be directly addressed to the provider for clarification. Admission and Anticipated Discharge Date Admission Date: March 25, 2023 Supervising Physician Co-Signing Physician Notes Supervising Physician Attestation: I have personally performed a history and physical examination on the patient. I agree with the physician resident assistant cna's findings and plan as documented with the following additions. New Holt, DO Subjective 83-year-old male who initially admitted to [facility] due to a fall. Incidentally found to be in atrial fibrillation with RVR with spontaneous conver alysia back to sinus rhythm. Continued to have paroxysms of atrial fibrillation with rapid ventricular rates during admission. Elevated [id number] score of 3 however, anticoagulation deferred due to high bleed risk. Rate control preferred due to severely dilated left atrium, patient would likely have a difficult time maintaining sinus rhythm. 03/26: Metoprolol tartrate was discontinued in favor of short acting Cardizem 30 mg 3 times daily. 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 Diltiazem increased to 60 mg 4 times daily Metoprolol remains on hold. 03/30/2023: Cardiology reconsulted due to ongoing rapid ventricular rates on telemetry. Upon entrance into the room patient uncomfortable in bed. ROS limited due to dementia. However, patient verbalizes chest pain and left arm pain as well as shortness of breath. Lung sounds are course and he has a cough. +orthopnea. No overt lower extremity edema. Tele: worsening ventricular rates averaging 130s-160s. No pauses or bradyarrhythmias. Review of Systems Review of Systems: Unobtainable due to cognitive status (limited ) Physical Exam Constitutional: + ill appearing Neck: normal visual inspection and trachea midline Respiratory: + labored breathing, + cough and + tachy pneic Auscultation: + rales, + rhonchi and + wheezes Cardiovascular: Rate/Rhythm: + tachycardic and + irregularly irregular He art Sounds: normal S1, normal S2 and + murmur Vessels: + JVD Extremities: no edema Gastrointestinal (Abdomen): Percussion/Palpation: + abdomen firm; abdomen nontender Skin: no rashes, warm and dry Psychiatric: Orientation: alert (dementia ) Results & Data Vital Signs (Past 12 Hours) Vital Signs Temp Pulse Pulse Resp BP Pulse Ox O2 Del Method 03/30/23 10:34 113 H 03/30/23 09:29 Room Air 03/30/23 07:00 36.6 C 118 H 22 119/68 96 Room Air 03/30/23 03:13 36.4 C L 121 H 25 H 120/81 94 Room Air 03/30/23 00:00 102 H Laboratory Results Cardiac Enzymes 03/30/23 Range/Units 06:03 AST 19 (13-39) U/L CBC 03/30/23 Range/Units 06:03 WBC 9.50 (4.8-10.8) K/ul RBC 4.77 (4.70-6.10) M/uL Hgb 14.0 (14.0-18.0) g/dl Hct 40.9 L (42.0-52.0) % Plt Count 241 (130-400) K/uL Neut # (Auto) 7.11 H (1.40-6.50) K/uL Lymph # (Auto) 1.23 (1.20-3.40) K/uL [place] # (Auto) 0.88 H (0.11-0.59) K/uL Eos # (Auto) 0.19 (0.00-0.50) K/uL Baso # (Auto) 0.05 (0.00-0.20) K/uL Comprehensive Metabolic Panel 03/30/23 Range/Units 06:03 Sodium 141 (136-145) mmol/L Potassium 4.0 (3.5-5.1) mmol/L Chloride 109 H (98-107) mmol/L Carbon Dioxide 27 (21-32) mmol/L BUN 21 (6-23) mg/dl Creatinine 0.98 (0.6-1.4) mg/dl Glucose 100 H (70-99(Fasting)) mg/dl Calcium 9.3 (8.6-10.3) mg/dl AST 19 (13-39) U/L ALT 15 (7-52) U/L Alkaline Phosphatase 57 (34-104) U/L Total Protein 5.9 L (6.0-8.3) gm/dl Albumin 3.6 (3.4-5.0) gm/dl Intake and Output 03/29/23 03/30/23 03/30/23 22:59 06:59 14:59 Intake Total 120 / 240 Balance 120 / 15 Intake: Oral 120 / 240 Other: # Unmeasured Voids 2 Weight 73.7 kg Weight Measurement Method Built in [facility] (2) Fall Encounter type: initial encounter Qualified Code(s): W19.XXXA - Unspecified fall, initial encounter (4) HTN (hypertension) Hypertension type: primary hypertension Qualified Code(s): I10 - Essential (primary) hypertension (5) CKD (chronic kidney disease), stage III Chronic kidney disease stage 3 subtype: unspecified whether 3a or 3b Qualified Code(s): N18.30 - Chronic kidney disease, stage 3 unspecified
[2023-03-30] MEDS ORDERED: FUROSEMIDE 40 MG/4 ML VIAL IV ONE (12:02)
[2023-03-30] MEDS ORDERED: METOPROLOL TARTRATE 1 MG/ML VIAL IV STA (12:05)
--- NOTE | 2023-03-30 12:47 | XRay Report ---
XR chest 1V portable CLINICAL HISTORY: dyspnea, volume overload COMPARISON STUDY: Chest radiograph March 25, 2023. FINDINGS: The patient is rotated. Mild cardiomegaly is unchanged. Allowing for patient rotation, medi astinal contours are stable. There is no pneumothorax or pleural effusion. There is no evidence for p ulmonary edema. Apparent right infrahilar opacity is likely artifactual or atelectatic. IMPRESSION: 1. No evidence for pulmonary edema. 2. Apparent right infrahilar opacity which is likely artifactual or atelectatic. ACT 112: Negative or not required by law. Electronically signed by: Eliu López M.D. 03/30/2023 12:46 PM
--- NOTE | 2023-03-30 14:30 | Hospitalist Progress Note ---
Date of Service March 30, 2023 Assessment & Plan (1) Weakness: (2) Fall: (3) Cerebellar degeneration: Plan: Patient is 83 y/o M with PMH cerebellar degeneration, CKD III, HTN, dyslipidemia, GERD, asthma, BPH, depression presented to ER from home with c/o being found on the floor Patient lives at home; is his primary caregiver. CT Head on admission; small posterior right parietal scalp contusion. No acute intracranial abnormality or calvarial fracture. Involutional changes with chronic microvascular ischemic disease. There is a new hypodense focus in the anterior superior left frontal lobe which is nonspecific and possibly represents encephalomalacia from a chronic insult PT OT eval Fall precautions, aspiration precautions Discussed with patient's and daughter at bedside on March 28, 2023. It has been increasing difficulty in taking care of the patient over the last several weeks. She reports that patient's physical condition has declined over the course of months as well. Possible discharge to rehab in next few days. (4) Elevated lactic acid level: Plan: Leukocytosis present on admission procalcitonin: <0.05 Lactate: 2.8 on admission; improved Blood cultures no growth till date CXR: No significant change compared to the prior study. No acute process. Respiratory bio fire negative Urinalysis not suggestive of infection Patient was placed on empiric antibiotics with ceftriaxone. Discontinued as blood cultures are negative. (5) Atrial fibrillation with RVR: Plan: In ER found to be in atrial fibrillation RVR on EKG Troponin: 20.3-->20.2. Likely elevated secondary to demand ischemia from Patient converted to normal sinus rhythm spontaneously. However, reverted back to atrial fibrillation with RVR. Echocardiogram showed EF of 50 to 55%; left atrium severely dilated. Cardizem increased to 60 mg 4 times a day. Difficulty in controlling ventricular rate; was started on metoprolol as well; patient had 2 to 3-second pauses. Cardiology recommends to continue only on Cardizem. Not on anticoagulation due to frequent falls. Discussed with regarding risks of stroke while not being on anticoagulation; she verbalized understanding of the risks. Continue telemonitoring Reached out to cardiology again regarding titration of medication for atrial fibrillation. (6) CKD (chronic kidney disease), stage III: Plan: Creatinine is around baseline. Monitor renal functions, avoid nephrotoxic agents when possible (7) HTN (hypertension): Plan: Currently on Cardizem. (8) Dyslipidemia: Plan: Continue simvastatin (9) Asthma: Plan: Not on inhalers Albuterol nebs as needed (10) GERD (gastroesophageal reflux disease): Plan: Continue PPI DVT Prophylaxis Heparin SQ DNR/DNI Dispositionpatient lives at home with his prior to admission. Continue to be hospitalized for atrial fibrillation with RVR. Continue to monitor on telemetry. Plan to discharge in next few days to short-term rehab stay when medically stable. Case management on board Time spent evaluating patient, direct bedside care, chart review, placing orders, interpretation of diagnostic studies, discussion with consultants, patient, and family members, as well as other required patient management activities is 50-minutes Please note the above document was generated using voice recognition software. It may contain grammatical, syntax or spelling errors. Any formal questions or concerns about the content, text or information contained within the body of this dictation should be directly addressed to the provider for clarification Admission and Anticipated Discharge Date Admission Date: March 25, 2023 Subjective Patient seen and examined at bedside. Telemetry shows atrial fibrillation with ventricular rate of 110s to 130s Review of Systems Review of Systems: Unobtainable due to cognitive status Physical Exam Physical Exam: Constitutional: Awake, able to say his name. Not in any distress. Respiratory: Bilateral vesicular breath sound Cardiovascular: Irregular no murmur, no edema Vessels: no JVD or carotid bruit Chest: normal inspection of chest Abdomen: normal bowel sounds, soft, nontender, no hepatosplenomegaly Musculoskeletal: no cyanosis or clubbing, extremities motor strength 5/5. Bruises over his knees. Skin: no rashes, warm and dry normal turgor Neurologic: Awake, oriented to self. Able to follow simple commands. Results & Data Results & Data Vital Signs (Past 12 Hours) Vital Signs Temp Pulse Pulse Resp BP BP Pulse Ox 03/30/23 13:17 106 H 118/64 03/30/23 11:00 36.7 C 120 H 20 125/58 L 97 03/30/23 10:34 113 H 03/30/23 09:29 03/30/23 07:00 36.6 C 118 H 22 119/68 96 03/30/23 03:13 36.4 C L 121 H 25 H 120/81 94 O2 Del Method 03/30/23 13:17 03/30/23 11:00 Room Air 03/30/23 10:34 03/30/23 09:29 Room Air 03/30/23 07:00 Room Air 03/30/23 03:13 Room Air (2) Fall Encounter type: initial encounter Qualified Code(s): W19.XXXA - Unspecified fall, initial encounter (6) CKD (chronic kidney disease), stage III Chronic kidney disease stage 3 subtype: unspecified whether 3a or 3b Qualified Code(s): N18.30 - Chronic kidney disease, stage 3 unspecified (7) HTN (hypertension) Hypertension type: primary hypertension Qualified Code(s): I10 - Essential (primary) hypertension
[2023-03-31 06:40] LABS: Calcium 9.5 mg/dl (8.6-10.3); Creatinine Clr Calc Pharmacy 40.2 ml/min; Est GFR (African American) 64.6 ml/min; Est GFR (Non-African American) 55.8 ml/min; Magnesium 1.9 mg/dl (1.7-2.4); Potassium 3.6 mmol/L (3.5-5.1)
[2023-03-31] MEDS ORDERED: POTASSIUM CHLORIDE 20 MEQ/15 ML UDC PO STA (07:40)
[2023-03-31] MEDS ORDERED: MAGNESIUM OXIDE 400 MG TAB PO ONE (07:40)
--- NOTE | 2023-03-31 07:44 | Cardiology Progress Note ---
Date of Service March 31, 2023 Assessment & Plan (1) PAF (paroxysmal atrial fibrillation): (2) Fall: (3) Weakness: (4) HTN (hypertension): (5) CKD (chronic kidney disease), stage III: (6) Cerebellar degeneration: Plan IMPRESSION: -83 y/o male with advanced dementia and AF with RVR-had some brief slower HR on 03/28/2023 am. Rates have been persistently elevated this am 130-160s, symptomatic with chest pressure/left arm pain and shortness of breath. -Elevated [id number] score of 3, anticoagulation deferred due to high fall/bleeding risk. Only on aspirin 81 mg daily. -Low normal LVEF on echo 03/26/2023m severely enlarged LA-- unlikely to maintain SR. PLAN: AFIB with RVR: -? Escalation of CCB as a cause of volume overload vs ongoing tachycardic rates in AFIB-- -vL status improved with single dose of IV Lasix, will hold off on further doses. -Heart rates remain tachycardic with rates 130-170s+. Responded well to IV Lopressor yesterday without pauses or profound bradycardia. Add Metoprolol tartrate 12.5 mg BID. -Remain on telemetry and monitor for bradyarrhythmias while inpatient. Patient is borderline TBS. -Monitor renal function and electrolytes. Maintain a potassium goal of 4.0 and mag of 2.0. Supplemented this am. No AC due to elevated bleeding risk/fall risk-- only on ASA 81 mg daily, continue. Case discussed with Dr. Holt. I spent a total of 30 minutes on the date of service in preparation, delivery, and documentation of the care provided to the patient excluding any time spent in the performance of separately billed services. DEANA Lux Department of Cardiology, [facility] This chart was completed in part utilizing Speech Voice Recognition Software. Grammatical errors, random word insertions, pronoun errors, and incomplete sentences are an occasional consequence of this system due to software limitations, ambient noise, and hardware issues. Any formal questions or concerns about the content, text, or information contained within the body of this dictation should be directly addressed to the provider for clarification. Admission and Anticipated Discharge Date Admission Date: March 25, 2023 Supervising Physician Co-Signing Physician Notes Supervising Physician Attestation: I have personally performed a history and physical examination on the patient. I agree with the physician election assistant's findings and plan as documented with the following additions. Subjective: Patient says shortness of breath. A-fib with mildly low ventricular rate noted on telemetry, pulse oximetry 97% on room air Exam: Neuro: Coarse breath sounds bilaterally at the bases Data: Echocardiogram performed 03/26/2023: Severe left atrial enlargement, LVEF in the range of 50 to 55% (lower limit of normal) mild aortic regurgitation, mild left regurgitation, mild tricuspid vegetation, pulmonary systolic pressure estimated to be 38 mmHg Assessment and Plan: As noted above. I spent a total of 20 minutes on the date of service in preparation, delivery, and documentation of the care provided to this patient, excluding any time spent in the performance of separately billed services. New Holt, DO Subjective 83-year-old male who initially admitted to [facility] due to a fall. Incidentally found to be in atrial fibrillation with RVR with spontaneous conversion back to sinus rhythm. Continued to have paroxysms of atrial fibrillation with rapid ventricular rates during admission. Elevated [id number] score of 3 however, anticoagulation deferred due to high bleed risk. Rate control preferred due to severely dilated left atrium, patient would likely have a difficult time maintaining sinus rhythm. 03/26: Metoprolol tartrate was discontinued in favor of short acting Cardizem 30 mg 3 times daily. 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 Diltiazem increased to 60 mg 4 times daily Metoprolol remains on hold. 03/30: Cardiology reconsulted due to ongoing rapid ventricular rates on telemetry-- symptomatic with chest pain and dyspnea. Tele: worsening ventricular rates averaging 130s-160s. No pauses or bradyarrhythmia. +given x1 dose of IV Lopressor 2.5 mg +given x1 dose of 40 mg of IV Lasix Diltiazem 60 mg QID continued 03/31/2023: upon entrance into the room patient asleep in bed. Woke easily-- feels poorly. Notes chest tightness. No shortness of breath. Denies palpitations. Does not appear volume overloaded- no swelling, no orthopnea. Tele: AFIB 130-170s. Did have a 2 min episode of NSR from 6:44-6:46 am where rates were in the mid 60s. Labs: Creatinine stable at 1.19, potassium 3.6, mag 1.9-- K and mag supplemented this am I&O: -3.2L (24 hrs), +393 mL total Weight: 77>>76.4>>73.1>>75.4>>74.5>>73.7>>71.7 kg Review of Systems Review of Systems: Unobtainable due to cognitive status (limited ) Physical Exam Constitutional: + ill appearing Neck: normal visual inspection and trachea midline Respiratory: + labored breathing; no cough and not ta chypneic Auscultation: + diminished lung sounds; no rales, no rhonchi and no wheezes Cardiovascular: Rate/Rhythm: + tachycardic and + irregularly irregular Heart Sounds: normal S1, normal S2 and + murmur Vessels: no JVD Extremities: no edema Gastrointestinal (Abdomen): Percussion/Palpation: + abdomen firm; abdomen nontender Skin: no rashes, warm and dry Psychiatric: Orientation: alert (dementia ) Results & Data Vital Signs (Past 12 Hours) Vital Signs Temp Pulse Pulse Resp BP Pulse Ox O2 Del Method 03/31/23 07:17 36.4 C L 86 20 123/51 L 92 Room Air 03/31/23 03:32 36.6 C 98 H 22 107/79 98 Room Air 03/30/23 23:25 112 H 03/30/23 22:46 36.6 C 66 23 124/83 92 Room Air 03/30/23 20:42 88 104/50 L 03/30/23 20:23 Room Air Laboratory Results Comprehensive Metabolic Panel 03/31/23 Range/Units 05:32 Sodium 140 (136-145) mmol/L Potassium 3.6 (3.5-5.1) mmol/L Chloride 105 (98-107) mmol/L Carbon Dioxide 27 (21-32) mmol/L BUN 23 (6-23) mg/dl Creatinine 1.19 (0.6-1.4) mg/dl Calcium 9.5 (8.6-10.3) mg/dl Intake and Output 03/30/23 03/31/23 03/31/23 22:59 06:59 14:59 Output Total 850 / 3175 675 / 3175 Balance -850 / -3175 - / -317 Output: Urine Amount (Catheter) / 3175 675 / 317 External 850 / 3175 / 317 Other: Weight 71.7 kg Weight Measurement Method Built in [facility] (2) Fall Encounter type: initial encounter Qualified Code(s): W19.XXXA - Unspecified fall, initial encounter (4) HTN (hypertension) Hypertension type: primary hypertension Qualified Code(s): I10 - Essential (primary) hypertension (5) CKD (chronic kidney disease), stage III Chronic kidney disease stage 3 subtype: unspecified whether 3a or 3b Qualified Code(s): N18.30 - Chronic kidney disease, stage 3 unspecified
[2023-03-31] MEDS: dilTIAZem HCl 60 MG TAB PO SCH ×4 (09:03→20:51)
[2023-03-31] MEDS: ATORVASTATIN 40 MG TAB PO SCH (09:04)
[2023-03-31] MEDS: HEPARIN SOD 5,000 UNIT/0.5 ML VIAL SQ SCH ×2 (09:04→20:52)
[2023-03-31] MEDS: ASPIRIN 81 MG ECTAB PO SCH (09:05)
[2023-03-31] MEDS: PANTOprazole 40 MG TAB PO SCH (09:05)
[2023-03-31] MEDS: METOPROLOL TARTRATE 25 MG TAB PO SCH ×2 (10:19→20:51)
--- NOTE | 2023-03-31 13:44 | Hospitalist Progress Note ---
Date of Service March 31, 2023 Assessment & Plan (1) Weakness: (2) Fall: (3) Cerebellar degeneration: Plan: Patient is 83 y/o M with PMH cerebellar degeneration, CKD III, HTN, dyslipidemia, GERD, asthma, BPH, depression presented to ER from home with c/o being found on the floor Patient lives at home; is his primary caregiver. CT Head on admission; small posterior right parietal scalp contusion. No acute intracranial abnormality or calvarial fracture. Involutional changes with chronic microvascular ischemic disease. There is a new hypodense focus in the anterior superior left frontal lobe which is nonspecific and possibly represents encephalomalacia from a chronic insult PT OT eval Fall precautions, aspiration precautions Discussed with patient's and daughter at bedside on March 28, 2023. It has been increasing difficulty in taking care of the patient over the last several weeks. She reports that patient's physical condition has declined over the course of months as well. Possible discharge to rehab in next few days. (4) Elevated lactic acid level: Plan: Leukocytosis present on admission procalcitonin: <0.05 Lactate: 2.8 on admission; improved Blood cultures no growth till date CXR: No significant change compared to the prior study. No acute process. Respiratory bio fire negative Urinalysis not suggestive of infection Patient was placed on empiric antibiotics with ceftriaxone. Discontinued as blood cultures are negative. (5) Atrial fibrillation with RVR: Plan: In ER found to be in atrial fibrillation RVR on EKG Troponin: 20.3-->20.2. Likely elevated secondary to demand ischemia from Patient converted to normal sinus rhythm spontaneously. However, reverted back to atrial fibrillation with RVR. Echocardiogram showed EF of 50 to 55%; left atrium severely dilated. Cardizem increased to 60 mg 4 times a day. Difficulty in controlling ventricular rate; started on metoprolol 12.5 mg twice a day. Not on anticoagulation due to frequent falls. Discussed with regarding risks of stroke while not being on anticoagulation; she verbalized understanding of the risks. Continue telemonitoring Reached out to cardiology again regarding titration of medication for atrial fibrillation. (6) CKD (chronic kidney disease), stage III: Plan: Creatinine is around baseline. Monitor renal functions, avoid nephrotoxic agents when possible (7) HTN (hypertension): Plan: Currently on Cardizem. (8) Dyslipidemia: Plan: Continue simvastatin (9) Asthma: Plan: Not on inhalers Albuterol nebs as needed (10) GERD (gastroesophageal reflux disease): Plan: Continue PPI DVT Prophylaxis Heparin SQ DNR/DNI Dispositionpatient lives at home with his prior to admission. Continue to be hospitalized for atrial fibrillation with RVR. Continue to monitor on telemetry. Plan to discharge in next few days to short-term rehab stay when medically stable. Case management on board Time spent evaluating patient, direct bedside care, chart review, placing orders, interpretation of diagnostic studies, discussion with consultants, patient, and family members, as well as other required patient management activities is 50-minutes Please note the above document was generated using voice recognition software. It may contain grammatical, syntax or spelling errors. Any formal questions or concerns about the content, text or information contained within the body of this dictation should be directly addressed to the provider for clarification Admission and Anticipated Discharge Date Admission Date: March 25, 2023 Subjective Patient seen and examined at bedside. History responds to his name; reports headache. Telemetry continues to show atrial fibrillation with ventricular rate of 120s to 130s Review of Systems Review of Systems: All systems reviewed & are unremarkable except as noted in Subjective Physical Exam Physical Exam: Constitutional: Awake, able to say his name. Not in any distress. Respiratory: Bilateral vesicular breath sound Cardiovascular: Irregular no murmur, no edema Vessels: no JVD or carotid bruit Chest: normal inspection of chest Abdomen: normal bowel sounds, soft, nontender, no hepatosplenomegaly Musculoskeletal: no cyanosis or clubbing, extremities motor strength 5/5. Bruises over his knees. Skin: no rashes, warm and dry normal turgor Neurologic: Awake, oriented to self. Able to follow simple commands. Results & Data Results & Data Vital Signs (Past 12 Hours) Vital Signs Temp Pulse Resp BP Pulse Ox O2 Del Method 03/31/23 11:12 36.4 C L 119 H 22 117/43 L 97 Room Air 03/31/23 08:00 Room Air 03/31/23 07:57 97 Room Air 03/31/23 07:17 36.4 C L 86 20 123/51 L 92 Room Air 03/31/23 03:32 36.6 C 98 H 22 107/79 98 Room Air (2) Fall Encounter type: initial encounter Qualified Code(s): W19.XXXA - Unspecified fall, initial encounter (6) CKD (chronic kidney disease), stage III Chronic kidney disease stage 3 subtype: unspecified whether 3a or 3b Qualified Code(s): N18.30 - Chronic kidney disease, stage 3 unspecified (7) HTN (hypertension) Hypertension type: primary hypertension Qualified Code(s): I10 - Essential (primary) hypertension
[2023-04-01 07:17] LABS: Calcium 9.7 mg/dl (8.6-10.3); Creatinine Clr Calc Pharmacy 37.4 ml/min; Est GFR (African American) 59.2 ml/min; Est GFR (Non-African American) 51.1 ml/min; Potassium 4.5 mmol/L (3.5-5.1)
[2023-04-01] MEDS: HEPARIN SOD 5,000 UNIT/0.5 ML VIAL SQ SCH ×2 (07:43→21:09)
[2023-04-01] MEDS: ATORVASTATIN 40 MG TAB PO SCH (07:44)
[2023-04-01] MEDS: PANTOprazole 40 MG TAB PO SCH (07:44)
[2023-04-01] MEDS: ASPIRIN 81 MG ECTAB PO SCH (07:44)
[2023-04-01] MEDS: dilTIAZem HCl 60 MG TAB PO SCH ×2 (07:44→12:16)
[2023-04-01] MEDS: METOPROLOL TARTRATE 25 MG TAB PO SCH (07:44)
--- NOTE | 2023-04-01 13:28 | Cardiology Progress Note ---
Date of Service April 01, 2023 Assessment & Plan (1) Atrial fibrillation with RVR: Plan 83-year-old male with atrial fibrillation with rapid response now trending towards better control. Poor anticoagulation candidate per past description Recent head injury with complaints of headache Recommendations: Simplify current medication regimen, change diltiazem to extended release. Continue metoprolol but changed to extended release possibly once per day as course progress Question repeat imaging if headache complaints persist Admission and Anticipated Discharge Date Admission Date: March 25, 2023 Subjective Patient seen and personally examined. Chart and telemetry reviewed No cardiac complaints but does complain of headache Atrial fibrillation trending towards better control but still elevated Review of Systems Review of Systems: All systems reviewed & are unremarkable except as noted in Subjective Physical Exam Constitutional: no acute distress Neck: trachea midline, no thyromegaly Respiratory: Auscultation: + diminished lung sounds and + wheezes Cardiovascular: Rate/Rhythm: + tachycardic and + irregularly irregular Heart Sounds: normal S1 and normal S2 Vessels: no JVD Extremities: no edema Gastrointestinal (Abdomen): normal bowel sounds, soft, nontender, no hepatosplenomegaly Results & Data Vital Signs (Past 12 Hours) Vital Signs Temp Pulse Resp BP BP Pulse Ox O2 Del Method 04/01/23 11:45 36.6 C 108 H 18 113/78 92 Room Air 04/01/23 08:10 117/83 04/01/23 08:02 36.5 C 125 H 18 88/54 L 96 Room Air 04/01/23 08:00 Room Air 04/01/23 03:01 36.7 C 63 18 110/73 95 Room Air Laboratory Results Laboratory Results - last 24 hr 04/01/23 05:53 Sodium 141 Potassium 4.5 D Chloride 107 Carbon Dioxide 29 Anion Gap 5 BUN 26 H Creatinine 1.28 Est Cr Clr Drug Dosing 37.4 Est GFR ( Amer) 59.2 Est GFR (Non-Af Amer) 51.1 Fasting Glucose 97 Calcium 9.7 Magnesium 2.0
[2023-04-01] MEDS: dilTIAZem HCL 180 MG CAPCR PO SCH (14:01)
[2023-04-01] MEDS ORDERED: LACTATED RINGER'S 1,000 ML IV SCH (16:00)
--- NOTE | 2023-04-01 16:17 | Hospitalist Progress Note ---
Date of Service April 01, 2023 Assessment & Plan (1) Weakness: Plan Per prior attending with addendum: (1) Weakness: (2) Fall: (3) Cerebellar degeneration: Plan: Patient is 83 y/o M with PMH cerebellar degeneration, CKD III, HTN, dyslipidemia , GERD, asthma, BPH, depression presented to ER from home with c/o being found on the floor Patient lives at home; is his primary caregiver. CT Head on admission; small posterior right parietal scalp contusion. No acute intracranial abnormality or calvarial fracture. Involutional changes with chronic microvascular ischemic disease. There is a new hypodense focus in the anterior superior left frontal lobe which is nonspecific and possibly represents encephalomalacia from a chronic insult PT OT eval Fall precautions, aspiration precautions Discussed with patient's and daughter at bedside on March 28, 2023. It has been increasing difficulty in taking care of the patient over the last several weeks. She reports that patient's physical condition has declined over the course of months as well. Possible discharge to rehab in next few days. (4) Elevated lactic acid level: Plan: Leukocytosis present on admission procalcitonin: <0.05 Lactate: 2.8 on admission; improved Blood cultures no growth till date CXR: No significant change compared to the prior study. No acute process. Respiratory bio fire negative Urinalysis not suggestive of infection Patient was placed on empiric antibiotics with ceftriaxone. Discontinued as blood cultures are negative. (5) Atrial fibrillation with RVR: Plan: In ER found to be in atrial fibrillation RVR on EKG Troponin: 20.3-->20.2. Likely elevated secondary to demand ischemia from Patient converted to normal sinus rhythm spontaneously. However, reverted back to atrial fibrillation with RVR. Echocardiogram showed EF of 50 to 55%; left atrium severely dilated. Cardizem increased to 60 mg 4 times a day. Difficulty in controlling ventricu lar rate; started on metoprolol 12.5 mg twice a day. Not on anticoagulation due to frequent falls. Discussed with regarding risks of stroke while not being on anticoagulation; she verbalized understanding of the risks. Continue telemonitoring Reached out to cardiology again regarding titration of medication for atrial fibrillation. (6) CKD (chronic kidney disease), stage III: Plan: Creatinine is around baseline. Monitor renal functions, avoid nephrotoxic agents when possible (7) HTN (hypertension): Plan: Currently on Cardizem. (8) Dyslipidemia: Plan: Continue simvastatin (9) Asthma: Plan: Not on inhalers Albuterol nebs as needed (10) GERD (gastroesophageal reflux disease): Plan: Continue PPI DVT Prophylaxis Heparin SQ DNR/DNI Dispositionpatient lives at home with his prior to admission. Continue to be hospitalized for atrial fibrillation with RVR. Continue to monitor on telemetry. Plan to discharge in next few days to short-term rehab stay when medically stable. Case management on board Addendum 04/01/2023: Patient was seen and examined at bedside, patient is still with A-fib RVR, better heart rate control now. Cardiology on board, appreciate recommendation.Pt on cardizem and metoprolol for rate control. c/w aspirin and statin. Not on anticoagulation due to fall risk. Electrolytes WNL and acceptable today. Possible DC tomorrow to rehab with cardiology clearance. Admission and Anticipated Discharge Date Admission Date: March 25, 2023 Subjective Patient seen and examined at bedside. He responds to his name; reports no pain. Telemetry continues to show atrial fibrillation with elevated ventricular rate but better rate control now. Per RN, patient with poor p.o. intake, will put him on gentle IV fluid. Physical Exam Physical Exam: Constitutional: Awake, able to say his name. Not in any distress. Respiratory: Bilateral vesicular breath sound Cardiovascular: Irregular , no murmur, no edema Vessels: no JVD or carotid bruit Chest: normal inspection of chest Abdomen: normal bowel sounds, soft, nontender, no hepatosplenomegaly Musculoskeletal: no cyanosis or clubbing, extremities motor strength 5/5. Bruises over his knees. Skin: no rashes, warm and dry normal turgor Neurologic: Awake, oriented to self. Able to follow simple commands. Results & Data Results & Data Vital Signs (Past 12 Hours) Vital Signs Temp Pulse Resp BP BP Pulse Ox O2 Del Method 04/01/23 15:35 36.4 C L 79 18 116/57 L 95 Room Air 04/01/23 11:45 36.6 C 108 H 18 113/78 92 Room Air 04/01/23 08:10 117/83 04/01/23 08:02 36.5 C 125 H 18 88/54 L 96 Room Air 04/01/23 08:00 Room Air
[2023-04-01] MEDS ORDERED: METOPROLOL SUCC 25MG EXT REL TAB PO SCH (21:00)
[2023-04-02] MEDS ORDERED: DIGOXIN 250 MCG in SYRINGE 9 ML IV ONE (00:05)
[2023-04-02] MEDS ORDERED: LACTATED RINGER'S 1,000 ML IV ONE (00:06)
[2023-04-02 07:02] LABS: Calcium 9.3 mg/dl (8.6-10.3); Creatinine Clr Calc Pharmacy 39.2 ml/min; Est GFR (African American) 62.7 ml/min; Est GFR (Non-African American) 54.1 ml/min; Magnesium 1.9 mg/dl (1.7-2.4); Potassium 4.1 mmol/L (3.5-5.1)
[2023-04-02] MEDS: ATORVASTATIN 40 MG TAB PO SCH (07:31)
[2023-04-02] MEDS: HEPARIN SOD 5,000 UNIT/0.5 ML VIAL SQ SCH ×2 (07:31→21:06)
[2023-04-02] MEDS: dilTIAZem HCL 180 MG CAPCR PO SCH (07:31)
[2023-04-02] MEDS: PANTOprazole 40 MG TAB PO SCH (07:31)
[2023-04-02] MEDS: ASPIRIN 81 MG ECTAB PO SCH (07:31)
[2023-04-02] MEDS ORDERED: MAGNESIUM SULFATE / D5W 1 GM/100 ML BAG IV ONE (08:12)
--- NOTE | 2023-04-02 08:53 | Communication Note ---
Date of Service: April 02, 2023 Medically complex 83 year old male initially admitted to [facility] due to a fall. Incidentally found to be in atrial fibrillation with RVR with spontaneous conversion back to sinus rhythm. Continued to have paroxysms of atrial fibrillation with rapid ventricular rates during admission. Elevated [id number]- VASc score of 3 however, anticoagulation deferred due to high bleed risk. Rate control preferred due to severely dilated left atrium, patient would likely have a difficult time maintaining sinus rhythm. Patient was dry over the last 24 hours- given IVF. Tele: AFIB 100-120s this am (up to the 150s over night) Medications recommended at discharge: Diltazem ER 180 mg daily Metoprolol succinate 25 mg BID No AC due to elevated bleeding risk/fall risk-- only on ASA 81 mg daily. DEANA Lux Dept of Cardiology, [facility]. Patient seen and personally examined. Assessment and plan as noted above. Heart rates trending towards better control but will need medical therapies as above metoprolol succinate increased to 25 mg twice per day. Continue diltiazem extended release 180 mg/day Will consider low-dose digoxin if persistent elevation heart rate present at 0.125 mg 3 days/week
[2023-04-02] MEDS: METOPROLOL SUCC 25MG EXT REL TAB PO SCH ×2 (11:34→21:06)
--- NOTE | 2023-04-02 16:20 | Hospitalist Progress Note ---
Date of Service April 02, 2023 Assessment & Plan (1) Weakness: Plan Per prior attending with addendum: (1) Weakness: (2) Fall: (3) Cerebellar degeneration: Plan: Patient is 83 y/o M with PMH cerebellar degeneration, CKD III, HTN, dyslipidemia , GERD, asthma, BPH, depression presented to ER from home with c/o being found on the floor Patient lives at home; is his primary caregiver. CT Head on admission; small posterior right parietal scalp contusion. No acute intracranial abnormality or calvarial fracture. Involutional changes with chronic microvascular ischemic disease. There is a new hypodense focus in the anterior superior left frontal lobe which is nonspecific and possibly represents encephalomalacia from a chronic insult PT OT eval Fall precautions, aspiration precautions Discussed with patient's and daughter at bedside on March 28, 2023. It has been increasing difficulty in taking care of the patient over the last several weeks. She reports that patient's physical condition has declined over the course of months as well. Possible discharge to rehab in next few days. (4) Elevated lactic acid level: Plan: Leukocytosis present on admission procalcitonin: <0.05 Lactate: 2.8 on admission; improved Blood cultures no growth till date CXR: No significant change compared to the prior study. No acute process. Respiratory bio fire negative Urinalysis not suggestive of infection Patient was placed on empiric antibiotics with ceftriaxone. Discontinued as blood cultures are negative. (5) Atrial fibrillation with RVR: Plan: In ER found to be in atrial fibrillation RVR on EKG Troponin: 20.3-->20.2. Likely elevated secondary to demand ischemia from Patient converted to normal sinus rhythm spontaneously. However, reverted back to atrial fibrillation with RVR. Echocardiogram showed EF of 50 to 55%; left atrium severely dilated. Cardizem increased to 60 mg 4 times a day. Difficulty in controlling ventricu lar rate; started on metoprolol 12.5 mg twice a day. Not on anticoagulation due to frequent falls. Discussed with regarding risks of stroke while not being on anticoagulation; she verbalized understanding of the risks. Continue telemonitoring Reached out to cardiology again regarding titration of medication for atrial fibrillation. (6) CKD (chronic kidney disease), stage III: Plan: Creatinine is around baseline. Monitor renal functions, avoid nephrotoxic agents when possible (7) HTN (hypertension): Plan: Currently on Cardizem. (8) Dyslipidemia: Plan: Continue simvastatin (9) Asthma: Plan: Not on inhalers Albuterol nebs as needed (10) GERD (gastroesophageal reflux disease): Plan: Continue PPI DVT Prophylaxis Heparin SQ DNR/DNI Dispositionpatient lives at home with his prior to admission. Continue to be hospitalized for atrial fibrillation with RVR. Continue to monitor on telemetry. Plan to discharge in next few days to short-term rehab stay when medically stable. Case management on board Addendum 04/01/2023: Patient was seen and examined at bedside, patient is still with A-fib RVR, better heart rate control now. Cardiology on board, appreciate recommendation.Pt on cardizem and metoprolol for rate control. c/w aspirin and statin. Not on anticoagulation due to fall risk. Electrolytes WNL and acceptable today. Possible DC tomorrow to rehab with cardiology clearance. Addendum 04/02/2023: Patient was seen and examined at bedside, patient is a still with A-fib RVR, elevated heart rate. Discussed with cardiology, increasing metoprolol dose. Continue with aspirin and statin. Not on anticoagulation due to Plavix. Electrolytes WNL and acceptable today. Possible DC tomorrow. Admission and Anticipated Discharge Date Admission Date: March 25, 2023 Subjective Patient seen and examined at bedside. He responds to his name; reports no pain. Telemetry continues to show atrial fibrillation with elevated ventricular rate but better rate control now. Per RN, p.o. intake slightly better. No complains of pain. Discussed with cardiology, plan to increase metoprolol dose. Physical Exam Physical Exam: Constitutional: Awake, able to say his name. Not in any distress. Respiratory: Bilateral vesicular breath sound Cardiovascular: Irregular , tachycardia, no murmur, no edema Vessels: no JVD or carotid bruit Chest: normal inspection of chest Abdomen: normal bowel sounds, soft, nontender, no hepatosplenomegaly Musculoskeletal: no cyanosis or clubbing, extremities motor strength 5/5. Bruises over his knees. Skin: no rashes, warm and dry normal turgor Neurologic: Awake, oriented to self. Able to follow simple commands. Results & Data Results & Data Vital Signs (Past 12 Hours) Vital Signs Temp Pulse Resp BP BP Pulse Ox O2 Del Method 04/02/23 15:39 36.3 C L 97 H 20 118/69 93 Room Air 04/02/23 11:30 36.3 C L 76 18 119/73 96 Room Air 04/02/23 07:53 Room Air 04/02/23 07:25 36.6 C 92 H 20 122/80 96 Room Air
[2023-04-03 07:12] LABS: BUN Creatinine Ratio 18.3 (10-20); Calcium 9.3 mg/dl (8.6-10.3); Creatinine Clr Calc Pharmacy 39.9 ml/min; Est GFR (Non-African American) 55.2 ml/min; Magnesium 2.2 mg/dl (1.7-2.4); Potassium 4.3 mmol/L (3.5-5.1)
[2023-04-03] MEDS: METOPROLOL SUCC 25MG EXT REL TAB PO SCH ×2 (07:27→20:05)
[2023-04-03] MEDS: PANTOprazole 40 MG TAB PO SCH (07:27)
[2023-04-03] MEDS: ATORVASTATIN 40 MG TAB PO SCH (07:27)
[2023-04-03] MEDS: dilTIAZem HCL 180 MG CAPCR PO SCH (07:27)
[2023-04-03] MEDS: ASPIRIN 81 MG ECTAB PO SCH (07:27)
[2023-04-03] MEDS: HEPARIN SOD 5,000 UNIT/0.5 ML VIAL SQ SCH ×2 (07:27→20:05)
--- NOTE | 2023-04-03 07:59 | Cardiology Progress Note ---
Date of Service April 03, 2023 Assessment & Plan (1) Atrial fibrillation with RVR: Plan IMPRESSION: -83 y/o male with advanced dementia and AF with RVR-had some brief slower HR on 03/28/2023 am. Rates have been persistently elevated this am 130-160s, symptomatic with chest pressure/left arm pain and shortness of breath. -Low normal LVEF on echo 03/26/2023m severely enlarged LA-- unlikely to maintain SR. PLAN: Atrial fibrillation: -Ongoing atrial fibrillation VR, rates averaging 100-120s -Continue diltiazem extended release 180 mg daily, will plan to increase Diltazem to 240 mg daily tomorrow. -Continue metoprolol succinate 25 mg twice daily -Add digoxin, 0.25 mg started today-- will transition to 0.125 mg daily tomorrow. -Elevated [id number] score of 3, anticoagulation deferred due to high fall/bleeding risk. Only on aspirin 81 mg daily. Case discussed with Dr. Faulkner. I spent a total of 30 minutes on the date of service in preparation, delivery, and documentation of the care provided to the patient excluding any time spent in the performance of separately billed services. DEANA Lux Department of Cardiology, [facility] This chart was completed in part utilizing Speech Voice Recognition Software. G rammatical errors, random word insertions, pronoun errors, and incomplete sentences are an occasional consequence of this system due to software limitations, ambient noise, and hardware issues. Any formal questions or concerns about the content, text, or information contained within the body of this dictation should be directly addressed to the provider for clarification. Admission and Anticipated Discharge Date Admission Date: March 25, 2023 Supervising Physician Co-Signing Physician Notes Patient seen, chart and telemetry reviewed. Atrial fibrillation slowly slowing Medications adjusted with addition of digoxin upward titration of beta-jeffrey and diltiazem Exam otherwise unchanged Subjective 83-year-old male who initially admitted to [facility] due to a fall. Incidentally found to be in atrial fibrillation with RVR with spontaneous conversion back to sinus rhythm. Continued to have paroxysms of atrial fibrillation with rapid ventricular rates during admission. Elevated [id number] score of 3 however, anticoagulation deferred due to high bleed risk. Rate control preferred due to severely dilated left atrium, patient would likely have a difficult time maintaining sinus rhythm. 03/26: Metoprolol tartrate was discontinued in favor of short acting Cardizem 30 mg 3 times daily. 03/27: Cardizem increased to 60 mg 3 times daily 03/28: Ongoing A-fib with RVR--asymptomatic Occasional lower rates in the press [employer] hours. Diltiazem increased to 60 mg 4 times daily Metoprolol remains on hold. 03/30: Cardiology reconsulted due to ongoing rapid ventricular rates on telemetry-- sym ptomatic with chest pain and dyspnea. Tele: worsening ventricular rates averaging 130s-160s. No pauses or bradyarrhythmia. +given x1 dose of IV Lopressor 2.5 mg +given x1 dose of 40 mg of IV Lasix Diltiazem 60 mg QID continued 03/31: Patient remained in A-fib with RVR up into the 130s to 170s. Metoprolol tartrate 12.5 mg twice daily started with improvement in rates 04/01: Medication regimen simplified, diltiazem was switched to extended release, 180 mg daily Metoprolol tartrate discontinued in favor of metoprolol succinate 25 mg nightly 04/02: Heart rates again became persistently elevated. Metoprolol succinate was increased to 25 mg twice daily. Diltiazem continued at 180 mg daily. 04/03/2023: Upon entrance into the room patient resting comfortably in bed. Woke easily. No acute concerns. Asymptomatic with AFIB. Denies CP and SOB. No palpitations. Noted a slight headache this am, given Tylenol with improvement. Tele: AFIB 100-120s Labs: Renal function and electrolytes stable Review of Systems Review of Systems: All systems reviewed & are unremarkable except as noted in HPI & below (limited) Physical Exam Physical Exam: alert and awake, NAD NC/AT, EOMI Supple No JVD irregular/irregular S1/S2, + murmur CTA b/l no w/r/r soft nt/nd no LE edema b/l +demented Constitutional: no acute distress Neck: normal visual inspection and trachea midline Respiratory: normal respiratory effort and + labored breathing; no cough and not tachypneic Auscultation: + diminished lung sounds; no rales, no rhonchi and no wheezes Cardiovascular: Rate/Rhythm: + tachycardic and + irregularly irregular Heart Sounds: normal S1, normal S2 and + murmur Vessels: no JVD Extremities: no edema Gastrointestinal (Abdomen): Percussion/Palpation: + abdomen firm; abdomen nontender Skin: no rashes, warm and dry Psychiatric: Orientation: alert (dementia ) Results & Data Vital Signs (Past 12 Hours) Vital Signs Temp Pulse Pulse Resp BP Pulse Ox O2 Del Method 04/03/23 04:56 138 H 04/03/23 02:00 36 C L 129 H 16 126/83 92 Room Air 04/02/23 23:47 137 H 04/02/23 22:54 36.6 C 112 H 18 103/68 93 Room Air 04/02/23 21:41 Room Air
[2023-04-03] MEDS ORDERED: DIGOXIN 0.125 MG TAB PO ONE (08:19)
[2023-04-03] MEDS: ACETAMINOPHEN 325 MG TAB PO PRN (08:45)
[2023-04-03] MEDS: DIGOXIN 0.125 MG TAB PO SCH (15:42)
--- NOTE | 2023-04-03 17:20 | Hospitalist Progress Note ---
Date of Service April 03, 2023 Assessment & Plan (1) Weakness: Plan Patient is 83 y/o M with PMH cerebellar degeneration, CKD III, HTN, dyslipidemia, GERD, asthma, BPH, depression presented to ER from home with c/o being found on the floor. Patient lives at home; is his primary caregiver. He is being managed for the following: Weakness: Fall: Cerebellar degeneration: CT Head on admission; small posterior right parietal scalp contusion. No acute intracranial abnormality or calvarial fracture. Involutional changes with chronic microvascular ischemic disease. There is a new hypodense focus in the anterior superior left frontal lobe which is nonspecific and possibly represents encephalomalacia from a chronic insult PT OT eval Fall precautions, aspiration precautions Prior attending - Discussed with patient's and daughter at bedside on March 28, 2023. It has been increasing difficulty in taking care of the patient over the last several weeks. She reports that patient's physical condition has declined over the course of months as well. Possible dc to rehab once cleared per cardio. Elevated lactic acid level: Leukocytosis present at admission, procalcitonin was negative. Blood culture came back negative. CXR with no acute finding. Respiratory BioFire was negative. Patient was initially placed on empiric antibiotics with Rocephin which was discontinued subsequently as blood cultures were negative. Atrial fibrillation with RVR: In ER found to be in atrial fibrillation RVR on EKG Troponin: 20.3-->20.2. Likely elevated secondary to demand ischemia from A-fib RVR. Patient converted to normal sinus rhythm spontaneously. However, reverted back to atrial fibrillation with RVR. Echocardiogram showed EF of 50 to 55%; left atrium severely dilated. Cardiology on board, patient currently on metoprolol and Cardizem. Digoxin added 04/03. Not a candidate for anticoagulation due to frequent falls. Continue telemetry monitoring. Other chronic medical conditions: Continue with/resume home meds as and when able. CKD stage IIIcreatinine around baseline. Monitor renal function Hypertension: Currently stable. Dyslipidemia: Continue simvastatin Asthma: Not on inhalers. Albuterol nebs as needed. Stable. GERD: Continue PPI DVT prophylaxis:-Subcu DNR/DNI Dispositionpatient lives at home with his prior to admission. Continue to be hospitalized for atrial fibrillation with RVR. Continue to monitor on telemetry. Plan to discharge in next few days to short-term rehab stay when medically stable. Case management on board Admission and Anticipated Discharge Date Admission Date: March 25, 2023 Subjective Patient seen and examined at bedside. He responds to his name; reports no pain. Telemetry continues to show atrial fibrillation with elevated ventricular rate. Per RN, p.o. intake getting better. No complains of pain. Physical Exam Physical Exam: Constitutional: Awake, able to say his name. Not in any distress. Respiratory: Bilateral vesicular breath sound Cardiovascular: Irregular , tachycardia, no murmur, no edema Vessels: no JVD or carotid bruit Chest: normal inspection of chest Abdomen: normal bowel sounds, soft, nontender, no hepatosplenomegaly Musculoskeletal: no cyanosis or clubbing, extremities motor strength 5/5. B ruises over his knees. Skin: no rashes, warm and dry normal turgor Neurologic: Awake, oriented to self. Able to follow simple commands. Results & Data Results & Data Vital Signs (Past 12 Hours) Vital Signs Temp Pulse Pulse Resp BP BP Pulse Ox 04/03/23 15:42 101 H 04/03/23 11:25 36.2 C L 73 21 113/62 92 04/03/23 08:45 122 H 04/03/23 07:53 04/03/23 07:44 36.4 C L 68 18 110/67 92 O2 Del Method 04/03/23 15:42 04/03/23 11:25 Room Air 04/03/23 08:45 04/03/23 07:53 Room Air 04/03/23 07:44 Room Air
[2023-04-04 06:12] LABS: BUN Creatinine Ratio 17.3 (10-20); Calcium 9.4 mg/dl (8.6-10.3); Creatinine Clr Calc Pharmacy 37.7 ml/min; Est GFR (African American) 59.7 ml/min; Est GFR (Non-African American) 51.5 ml/min; Magnesium 2.2 mg/dl (1.7-2.4); Potassium 4.3 mmol/L (3.5-5.1)
--- NOTE | 2023-04-04 06:56 | Cardiology Progress Note ---
Date of Service April 04, 2023 Assessment & Plan (1) Atrial fibrillation with RVR: Plan IMPRESSION: -83 y/o male with advanced dementia and AF with RVR-had some brief slower HR on 03/28/2023 am. Rates have been persistently elevated this am 130-160s, symptomatic with chest pressure/left arm pain and shortness of breath. -Low normal LVEF on echo 03/26/2023m severely enlarged LA-- unlikely to maintain SR. PLAN: Atrial fibrillation: -Ongoing atrial fibrillation VR, rates averaging 100-110s -Increase Diltazem to 240 mg daily -Continue metoprolol succinate 25 mg twice daily -Continue digoxin 0.125 mg daily (received x 1 dose of 0.25 mg on 04/03) -Elevated [id number] score of 3, anticoagulation deferred due to high fall/bleeding risk. Only on aspirin 81 mg daily. Consider repeat imaging given ongoing headache and recent head injury. Case discussed with Dr. Holt I spent a total of 30 minutes on the date of service in preparation, delivery, and documentation of the care provided to the patient excluding any time spent in the performance of separately billed services. DEANA Lux Department of Cardiology, [facility] This chart was completed in part utilizing Speech Voice Recognition Software. Grammatical errors, random word insertions, pronoun errors, and incomplete sentences are an occasional consequence of this system due to software limitations, ambient noise, and hardware issues. Any formal questions or concerns about the content, text, or information contained within the body of this dictation should be directly addressed to the provider for clarification. Admission and Anticipated Discharge Date Admission Date: March 25, 2023 Supervising Physician Co-Signing Physician Notes Attending attestation: I have reviewed the advanced practitioner's documentation, and agree with, and take responsibility for the plan of care. Subjective: Patient seen in follow up. Telemetry reveals AF with rates in the range of 100-120 bpm during my assessment. Spouse , Christina, at bedside. Exam: CV: irregular rhythm, tachycardic, no edema Neuro: does not provide helpful subjective input , not following commands. Impression/ Plan: Patient has history autosomal dominant type 6 cerebellar degeneration and at baseline patient has unintelligible speech and does not ambulate and uses wheelchair. His spouse, Christina, describes that the patient's father and multiple other relatives have had similar decline. They have a daughter who is in her 50s and carries the diagnosis. he has been wheel chair bound since 2007. Overall, I do not think atrial fibrillation is the driving force behind pt's current circumstances. Pt DNR /DNI per his prior expressed wishes. Continue diltiazem 240 mg PO daily , metoprolol succinate 25 mg BID, and digoxin 0.125 mg daily for rate control. Anticipate he may decline further to the point where he may not be able to tolerate oral medications. OK to transfer off of telemetry from my standpoint. Christina states she cannot afford terminologist SNF level care , and hope is for him to improve to were he can go back home with home health. I spent a total of 20 minutes coordinating, documenting, and providing care for this patient excluding time spent in the performance of separately billed services or time spent by another provider. [place], DO Subjective 83-year-old male who initially admitted to [facility] due to a fall. Incidentally found to be in atrial fibrillation with RVR with spontaneous conversion back to sinus rhythm. Continued to have paroxysms of atrial fibrillation with rapid ventricular rates during admission. Elevated [id number] score of 3 however, anticoagulation deferred due to high bleed risk. Rate control preferred due to severely dilated left atrium, patient would likely have a difficult time maintaining sinus rhythm. 03/26: Metoprolol tartrate was discontinued in favor of short acting Cardizem 30 mg 3 times daily. 03/27: Cardizem increased to 60 mg 3 times daily 03/28: Ongoing A-fib with RVR--asymptomatic Occasional lower rates in the c python developer hours. Diltiazem increased to 60 mg 4 times daily Metoprolol remains on hold. 03/30: Cardiology reconsulted due to ongoing rapid ventricular rates on telemetry-- symptomatic with chest pain and dyspnea. Tele: worsening ventricular rates averaging 130s-160s. No pauses or bradyarrhythmia. +given x1 dose of IV Lopressor 2.5 mg +given x1 dose of 40 mg of IV Lasix Diltiazem 60 mg QID continued 03/31: Patient remained in A-fib with RVR up into the 130s to 170s. Metoprolol tartrate 12.5 mg twice daily started with improvement in rates 04/01: Medication regimen simplified, diltiazem was switched to extended release, 180 mg daily Metoprolol tartrate discontinued in favor of metoprolol succinate 25 mg nightly 04/02: Heart rates again became persistently elevated. Metoprolol succinate was increased to 25 mg twice daily. Diltiazem continued at 180 mg daily. 04/03/2023: Rates persistently elevated. Digoxin 0.25 mg given with transition to 0.125 mg daily on 04/04. 04/04/2023: Upon entrance into the room patient resting comfortably in bed. Woke easily. No acute concerns, but continues to have a mild headache. Asymptomatic with AFIB. Denies CP and SOB. No palpitations. Tele: AFIB 100-110s Labs: Renal function and electrolytes stable Review of Systems Review of Systems: All systems reviewed & are unremarkable except as noted in HPI & below (limited ) Physical Exam Physical Exam: alert and awake, NAD NC/AT, EOMI Supple No JVD irregular/irregular S1/S2, + murmur CTA b/l no w/r/r soft nt/nd no LE edema b/l +demented Constitutional: + ill appearing; no acute distress Neck: normal visual inspection and trachea midline Respiratory: normal respiratory effort and + labored breathing; no cough and not tachypneic Auscultation: + diminished lung sounds; no rales, no rhonchi and no wheezes Cardiovascular: Rate/Rhythm: + tachycardic and + irregularly irregular Heart Sounds: normal S1, normal S2 and + murmur Vessels: no JVD Extremities: no edema Gastrointestinal (Abdomen): Percussion/Palpation: + abdomen firm; abdomen nontender Skin: no rashes, warm and dry Psychiatric: Orientation: alert (dementia ) Results & Data Vital Signs (Past 12 Hours) Vital Signs Temp Pulse Pulse Resp BP Pulse Ox O2 Del Method 04/04/23 03:00 36.3 C L 101 H 18 107/66 95 Room Air 04/03/23 23:20 105 H 04/03/23 22:30 36.5 C 67 18 128/62 93 Room Air 04/03/23 20:35 Room Air 04/03/23 19:35 36.2 C L 76 18 105/65 94 Room Air
[2023-04-04] MEDS: HEPARIN SOD 5,000 UNIT/0.5 ML VIAL SQ SCH ×2 (07:44→21:54)
[2023-04-04] MEDS: PANTOprazole 40 MG TAB PO SCH (07:44)
[2023-04-04] MEDS: dilTIAZem HCL 240 MG CAPCR PO SCH (07:44)
[2023-04-04] MEDS: ASPIRIN 81 MG ECTAB PO SCH (07:44)
[2023-04-04] MEDS: ATORVASTATIN 40 MG TAB PO SCH (07:44)
[2023-04-04] MEDS ORDERED: bisacodyL 10 MG SUPP PR PRN (08:06)
[2023-04-04] MEDS: METOPROLOL SUCC 25MG EXT REL TAB PO SCH ×2 (09:30→21:55)
--- NOTE | 2023-04-04 13:28 | Hospitalist Progress Note ---
Date of Service April 04, 2023 Assessment & Plan (1) Weakness: Plan Patient is 83 y/o M with PMH cerebellar degeneration, CKD III, HTN, dyslipidemia, GERD, asthma, BPH, depression presented to ER from home with c/o being found on the floor. Patient lives at home; is his primary caregiver. He is being managed for the following: Weakness: Fall: Cerebellar degeneration: CT Head on admission; small posterior right parietal scalp contusion. No acute intracranial abnormality or calvarial fracture. Involutional changes with chronic microvascular ischemic disease. There is a new hypodense focus in the anterior superior left frontal lobe which is nonspecific and possibly represents encephalomalacia from a chronic insult PT OT eval Fall precautions, aspiration precautions Prior attending - Discussed with patient's and daughter at bedside on March 28, 2023. It has been increasing difficulty in taking care of the patient over the last several weeks. She reports that patient's physical condition has declined over the course of months as well. Dc to rehab. Elevated lactic acid level: Leukocytosis present at admission, procalcitonin was negative. Blood culture came back negative. CXR with no acute finding. Respiratory BioFire was negative. Patient was initially placed on empiric antibiotics with Rocephin which was discontinued subsequently as blood cultures were negative. Atrial fibrillation with RVR: In ER found to be in atrial fibrillation RVR on EKG Troponin: 20.3-->20.2. Likely elevated secondary to demand ischemia from A-fib RVR. Patient converted to normal sinus rhythm spontaneously. However, reverted back to atrial fibrillation with RVR. Echocardiogram showed EF of 50 to 55%; left atrium severely dilated. Cardiology on board, patient currently on metoprolol and Cardizem. Digoxin added 04/03. Optimized meds. Not a candidate for anticoagulation due to frequent falls. Continue telemetry monitoring. Other chronic medical conditions: Continue with/resume home meds as and when able. CKD stage IIIcreatinine around baseline. Monitor renal function Hypertension: Currently stable. Dyslipidemia: Continue simvastatin Asthma: Not on inhalers. Albuterol nebs as needed. Stable. GERD: Continue PPI DVT prophylaxis:-Subcu DNR/DNI Dispositionpatient lives at home with his prior to admission. Continue to be hospitalized for atrial fibrillation with RVR. Continue to monitor on telemetry. Can possibly dc to rehab. Case management on board Admission and Anticipated Discharge Date Admission Date: March 25, 2023 Subjective Patient seen and examined at bedside. He responds to his name; reports no pain. Telemetry continues to show atrial fibrillation , now w/ better rate control. Pt complains of intermittent headache, will get repeat CT Head. Physical Exam Physical Exam: Constitutional: Awake, able to say his name. Not in any distress. Respiratory: Bilateral vesicular breath sound Cardiovascular: Irregular , tachycardia, no murmur, no edema Vessels: no JVD or carotid bruit Chest: normal inspection of chest Abdomen: normal bowel sounds, soft, nontender, no hepatosplenomegaly Musculoskeletal: no cyanosis or clubbing, extremities motor strength 5/5. Bruises over his knees. Skin: no rashes, warm and dry normal turgor Neurologic: Awake, oriented to self. Able to follow simple commands. Results & Data Results & Data Vital Signs (Past 12 Hours) Vital Signs Temp Pulse Resp BP BP Pulse Ox O2 Del Method 04/04/23 11:59 36.4 C L 84 19 127/73 96 Room Air 04/04/23 07:53 36.4 C L 115 H 19 148/63 H 93 Room Air 04/04/23 03:00 36.3 C L 101 H 18 107/66 95 Room Air
--- NOTE | 2023-04-04 13:33 | CT Scan Report ---
CT head/brain wo con CLINICAL HISTORY: intermittent headache Technique: Contiguous axial CT images of the head were acquired from the base of the skull to the mauri alana without intravenous contrast administration. Images were viewed in brain, subdural and bone [facility] . Automated dose lowering techniques and/or adjustment according to patient size were utilized for this exam. Comparison: Comparison is made to CT head 03/25/2023 Findings: Areas of decreased attenuation are present in the periventricular and subcortical white matter bilate rally consistent with small vessel ischemic disease. Generalized cerebral atrophy with commensurate e nlargement of the ventricles, sulci, and cisterns is also present. There is no acute intracranial hem orrhage or evidence of acute territorial infarction. No shift of the midline structures, mass effect, or extra-axial abnormalities are shown. Atherosclerotic calcifications are present in the intracran ial segments of the internal carotid arteries. Imaged portions of the paranasal sinuses and mastoid air cells are clear. The orbits appear normal. There are no acute fractures of the calvaria or scalp swelling. Impression: No acute intracranial hemorrhage, no evidence of acute territorial infarction or other acute intracra nial disease process. ACT 112: Negative or not required by law. Electronically signed by: Nam Perez M.D. 04/04/2023 1:31 PM
[2023-04-04] MEDS: DIGOXIN 0.125 MG TAB PO SCH (18:24)
[2023-04-05] MEDS: METOPROLOL SUCC 25MG EXT REL TAB PO SCH ×2 (08:31→21:21)
[2023-04-05] MEDS: dilTIAZem HCL 240 MG CAPCR PO SCH (08:31)
[2023-04-05] MEDS: PANTOprazole 40 MG TAB PO SCH (08:32)
[2023-04-05] MEDS: HEPARIN SOD 5,000 UNIT/0.5 ML VIAL SQ SCH ×2 (08:32→21:21)
[2023-04-05] MEDS: ATORVASTATIN 40 MG TAB PO SCH (08:32)
[2023-04-05] MEDS: ASPIRIN 81 MG ECTAB PO SCH (08:32)
[2023-04-05] MEDS: DIGOXIN 0.125 MG TAB PO SCH (16:55)
--- NOTE | 2023-04-05 17:58 | Hospitalist Progress Note ---
Date of Service April 05, 2023 Assessment & Plan (1) Weakness: Plan Patient is 83 y/o M with PMH cerebellar degeneration, CKD III, HTN, dyslipidemia, GERD, asthma, BPH, depression presented to ER from home with c/o being found on the floor. Patient lives at home; is his primary caregiver. He is being managed for the following: Weakness: Fall: Cerebellar degeneration: CT Head on admission; small posterior right parietal scalp contusion. No acute intracranial abnormality or calvarial fracture. Involutional changes with chronic microvascular ischemic disease. There is a new hypodense focus in the anterior superior left frontal lobe which is nonspecific and possibly represents encephalomalacia from a chronic insult PT OT eval Fall precautions, aspiration precautions Prior attending - Discussed with patient's and daughter at bedside on March 28, 2023. It has been increasing difficulty in taking care of the patient over the last several weeks. She reports that patient's physical condition has declined over the course of months as well. Dc to rehab. Elevated lactic acid level: Leukocytosis present at admission, procalcitonin was negative. Blood culture came back negative. CXR with no acute finding. Respiratory BioFire was negative. Patient was initially placed on empiric antibiotics with Rocephin which was discontinued subsequently as blood cultures were negative. Atrial fibrillation with RVR: In ER found to be in atrial fibrillation RVR on EKG Troponin: 20.3-->20.2. Likely elevated secondary to demand ischemia from A-fib RVR. Patient converted to normal sinus rhythm spontaneously. However, reverted back to atrial fibrillation with RVR. Echocardiogram showed EF of 50 to 55%; left atrium severely dilated. Cardiology evaled, patient currently on metoprolol and Cardizem. Digoxin added 04/03. Optimized meds. Not a candidate for anticoagulation due to frequent falls. off of telemetry monitoring. Other chronic medical conditions: Continue with/resume home meds as and when able. CKD stage IIIcreatinine around baseline. Monitor renal function Hypertension: Currently stable. Dyslipidemia: Continue simvastatin Asthma: Not on inhalers. Albuterol nebs as needed. Stable. GERD: Continue PPI DVT prophylaxis:-Subcu DNR/DNI Dispositionpatient lives at home with his prior to admission. Continue to be hospitalized for atrial fibrillation with RVR. Continue to monitor on telemetry. Can possibly dc to rehab. awaiting placement. Admission and Anticipated Discharge Date Admission Date: March 25, 2023 Subjective Patient seen and examined at bedside. He responds to his name; reports no pain. Per RN eating ok, moved bowels yesterday, urinary retention needs close f/u , d/w RN. Physical Exam Physical Exam: Constitutional: Awake, able to say his name. Not in any distress. Respiratory: Bilateral vesicular breath sound Cardiovascular: Irregular, no murmur, no edema Vessels: no JVD or carotid bruit Chest: normal inspection of chest Abdomen: normal bowel sounds, soft, nontender, no hepatosplenomegaly Musculoskeletal: no cyanosis or clubbing, extremities motor strength 5/5. Bruises over his knees. Skin: no rashes, warm and dry normal turgor Neurologic: Awake, oriented to self. Able to follow simple commands. Results & Data Results & Data Vital Signs (Past 12 Hours) Vital Signs Temp Pulse Pulse Resp BP Pulse Ox O2 Del Method 04/05/23 16:55 72 04/05/23 08:20 35.8 C L 86 20 112/70 93 Room Air
[2023-04-06] MEDS: ACETAMINOPHEN 325 MG TAB PO PRN ×2 (00:02→20:04)
[2023-04-06] MEDS ORDERED: KETOROLAC TROMETHAMINE 15 MG/ML VIAL IV ONE (01:36)
[2023-04-06] MEDS: MELATONIN 3 MG TAB PO PRN ×2 (01:58→20:04)
[2023-04-06 02:40] LABS: Appearance Urine Clear (Clear); Bilirubin Urine Negative (Negative); Blood Urine 3+ (Negative); Color Urine Yellow; Glucose Urine UA Negative (Negative); Ketones Urine Negative (Negative); Leukocyte Esterase Urine 1+ (Negative); Nitrite Urine Negative (Negative); Protein Urine 2+ (Negative); Specific Gravity Urine >= 1.030 (1.000-1.030); Urobilinogen Urine Negative (Negative)
[2023-04-06 02:55] LABS: Epithelial Cell Urine 0-5 /lpf (0-5); Renal Epithelial Cells Urine 0-5 /lpf (0-5)
[2023-04-06 02:56] LABS: Bacteria Urine 1+ (Negative); Calcium Oxalate Crystals Urine Present (None Prsent)
--- NOTE | 2023-04-06 03:07 | Communication Note ---
Date of Service: April 06, 2023 Patient complaining of discomfort to RN from Howard catheter. No fever, no chills. UA WBC esterase AP Complicated UTI Urinary retention No sepsis for now Urine CS, Ceftriaxone
[2023-04-06] MEDS: cefTRIAXone SODIUM 2,000 MG in DEXTROSE 5 % MINI-B 50 ML IV SCH (03:34)
[2023-04-06] MEDS: dilTIAZem HCL 240 MG CAPCR PO SCH (09:52)
[2023-04-06] MEDS: PANTOprazole 40 MG TAB PO SCH (09:52)
[2023-04-06] MEDS: ATORVASTATIN 40 MG TAB PO SCH (09:52)
[2023-04-06] MEDS: PHENAZOPYRIDINE HCL 100 MG TAB PO PRN ×2 (09:52→20:04)
[2023-04-06] MEDS: METOPROLOL SUCC 25MG EXT REL TAB PO SCH ×2 (09:53→20:04)
[2023-04-06] MEDS: ASPIRIN 81 MG ECTAB PO SCH (09:53)
[2023-04-06] MEDS: HEPARIN SOD 5,000 UNIT/0.5 ML VIAL SQ SCH ×2 (10:02→20:04)
--- NOTE | 2023-04-06 16:26 | Hospitalist Progress Note ---
Date of Service April 06, 2023 Assessment & Plan (1) Weakness: Plan Patient is 83 y/o M with PMH cerebellar degeneration, CKD III, HTN, dyslipidemia, GERD, asthma, BPH, depression presented to ER from home with c/o being found on the floor. Patient lives at home; is his primary caregiver. He is being managed for the following: Weakness: Fall: Cerebellar degeneration: CT Head on admission; small posterior right parietal scalp contusion. No acute intracranial abnormality or calvarial fracture. Involutional changes with chronic microvascular ischemic disease. There is a new hypodense focus in the anterior superior left frontal lobe which is nonspecific and possibly represents encephalomalacia from a chronic insult PT OT eval Fall precautions, aspiration precautions Prior attending - Discussed with patient's and daughter at bedside on March 28, 2023. It has been increasing difficulty in taking care of the patient over the last several weeks. She reports that patient's physical condition has declined over the course of months as well. Dc to rehab. Elevated lactic acid level: Leukocytosis present at admission, procalcitonin was negative. Blood culture came back negative. CXR with no acute finding. Respiratory BioFire was negative. Patient was initially placed on empiric antibiotics with Rocephin which was discontinued subsequently as blood cultures were negative. Acute UTI: noted 04/06, c/w rocpehin 04/06. f/u urine Cx. Atrial fibrillation with RVR: In ER found to be in atrial fibrillation RVR on EKG Troponin: 20.3-->20.2. Likely elevated secondary to demand ischemia from A-fib RVR. Patient converted to normal sinus rhythm spontaneously. However, reverted back to atrial fibrillation with RVR. Echocardiogram showed EF of 50 to 55%; left atrium severely dilated. Cardiology evaled, patient currently on metoprolol and Cardizem. Digoxin added 04/03. Optimized meds. Not a candidate for anticoagulation due to frequent falls. off of telemetry monitoring. Other chronic medical conditions: Continue with/resume home meds as and when able. CKD stage IIIcreatinine around baseline. Monitor renal function Hypertension: Currently stable. Dyslipidemia: Continue simvastatin Asthma: Not on inhalers. Albuterol nebs as needed. Stable. GERD: Continue PPI DVT prophylaxis:-Subcu DNR/DNI Dispositionpatient lives at home with his prior to admission. Continue to be hospitalized for atrial fibrillation with RVR. Continue to monitor on telemetry. Can possibly dc to rehab. awaiting placement. Admission and Anticipated Discharge Date Admission Date: March 25, 2023 Subjective Patient seen and examined at bedside. He responds to his name; reports no pain. Per RN eating ok, moved bowels yesterday, patient placed on Howard catheter due to urinary retention. Patient noted to have UTI last evening. Patient's family at bedside were updated and answered all their questions. They requested regular blood labs for tomorrow morning. Physical Exam Physical Exam: Constitutional: Awake, able to say his name. Not in any distress. Respiratory: Bilateral vesicular breath sound Cardiovascular: Irregular, no murmur, no edema Vessels: no JVD or carotid bruit Chest: normal inspection of chest Abdomen: normal bowel sounds, soft, nontender, no hepatosplenomegaly Musculoskeletal: no cyanosis or clubbing, extremities motor strength 5/5. Bruises over his knees. Skin: no rashes, warm and dry normal turgor Neurologic: Awake, oriented to self. Able to follow simple commands. UC in situ. Results & Data Results & Data Vital Signs (Past 12 Hours) Vital Signs Temp Pulse Resp BP Pulse Ox O2 Del Method 04/06/23 15:36 36.4 C L 109 H 18 103/66 94 Room Air 04/06/23 09:54 104 H 115/72 04/06/23 07:14 37.1 C 92 H 16 142/95 H 97 Room Air 04/06/23 05:00 36.6 C 88 18 122/78 94 Room Air
[2023-04-06] MEDS: DIGOXIN 0.125 MG TAB PO SCH (17:31)
[2023-04-06] MEDS: SODIUM CHLORIDE 0.9% 1,000 ML IV SCH (19:34)
[2023-04-07] MEDS: cefTRIAXone SODIUM 2,000 MG in DEXTROSE 5 % MINI-B 50 ML IV SCH (03:54)
[2023-04-07 07:40] LABS: Hematocrit (blood only) 49.7 % (42.0-52.0); Mean Corpuscular Hemoglobin 28.9 pg (25.0-34.0); Mean Corpuscular Hgb Conc 32.2 g/dL (32.0-36.0); Mean Corpuscular Volume 89.7 fL (80.0-100.0); Mean Platelet Volume 10.8 fL (9.4-12.4); Platelet Count 253 K/uL (130-400); RDW Coefficient of Variation 13.7 % (11.5-14.5); RDW Standard Deviation 44.8 fL (36.4-46.3); Red Blood Count 5.54 M/uL (4.70-6.10); White Blood Count 9.41 K/ul (4.8-10.8)
[2023-04-07 08:01] LABS: Calcium 9.5 mg/dl (8.6-10.3); Creatinine Clr Calc Pharmacy 33.9 ml/min; Est GFR (African American) 52.6 ml/min; Est GFR (Non-African American) 45.4 ml/min; Phosphorus 2.8 mg/dl (2.5-4.9); Potassium 4.6 mmol/L (3.5-5.1)
[2023-04-07] MEDS: HEPARIN SOD 5,000 UNIT/0.5 ML VIAL SQ SCH ×2 (08:42→20:30)
[2023-04-07] MEDS: PHENAZOPYRIDINE HCL 100 MG TAB PO PRN (08:42)
[2023-04-07] MEDS: ASPIRIN 81 MG ECTAB PO SCH (08:43)
[2023-04-07] MEDS: ATORVASTATIN 40 MG TAB PO SCH (08:43)
[2023-04-07] MEDS: METOPROLOL SUCC 25MG EXT REL TAB PO SCH ×2 (08:43→20:29)
[2023-04-07] MEDS: dilTIAZem HCL 240 MG CAPCR PO SCH (08:43)
[2023-04-07] MEDS: PANTOprazole 40 MG TAB PO SCH (08:43)
[2023-04-07] MEDS: SODIUM CHLORIDE 0.9% 1,000 ML IV SCH (14:56)
--- NOTE | 2023-04-07 15:46 | Hospitalist Progress Note ---
Date of Service April 07, 2023 Assessment & Plan (1) Weakness: Plan Patient is 83 y/o M with PMH cerebellar degeneration, CKD III, HTN, dyslipidemia, GERD, asthma, BPH, depression presented to ER from home with c/o being found on the floor. Patient lives at home; is his primary caregiver. He is being managed for the following: Weakness: Fall: Cerebellar degeneration: CT Head on admission; small posterior right parietal scalp contusion. No acute intracranial abnormality or calvarial fracture. Involutional changes with chronic microvascular ischemic disease. There is a new hypodense focus in the anterior superior left frontal lobe which is nonspecific and possibly represents encephalomalacia from a chronic insult PT OT eval Fall precautions, aspiration precautions Prior attending - Discussed with patient's and daughter at bedside on March 28, 2023. It has been increasing difficulty in taking care of the patient over the last several weeks. She reports that patient's physical condition has declined over the course of months as well. Dc to rehab. Elevated lactic acid level: Leukocytosis present at admission, procalcitonin was negative. Blood culture came back negative. CXR with no acute finding. Respiratory BioFire was negative. Patient was initially placed on empiric antibiotics with Rocephin which was discontinued subsequently as blood cultures were negative. Acute UTI: noted 04/06, c/w Rocephin 04/06, Urine culture pending pinpoint Atrial fibrillation with RVR: In ER found to be in atrial fibrillation RVR on EKG Troponin: 20.3-->20.2. Likely elevated secondary to demand ischemia from A-fib RVR. Patient converted to normal sinus rhythm spontaneously. However, reverted back to atrial fibrillation with RVR. Echocardiogram showed EF of 50 to 55%; left atrium severely dilated. Cardiology evaled, patient currently on metoprolol and Cardizem. Digoxin added 04/03. Optimized meds. Not a candidate for anticoagulation due to frequent falls. off of telemetry monitoring. Other chronic medical conditions: Continue with/resume home meds as and when able. CKD stage IIIcreatinine around baseline. Monitor renal function Hypertension: Currently stable. Dyslipidemia: Continue simvastatin Asthma: Not on inhalers. Albuterol nebs as needed. Stable. GERD: Continue PPI DVT prophylaxis:-Subcu DNR/DNI Dispositionpatient lives at home with his prior to admission. Continue to be hospitalized for atrial fibrillation with RVR. DC to rehab when able. Pt was seen and examined in collaboration with Dr. Cruz, please see addendum A total of 42 minutes was spent coordinating, documenting, and providing care for this patient excluding time spent in the performance of separately billed services. This included personally viewing all current laboratories and imaging studies, medication reconciliation, outpatient chart review, and discussion with specialists. Admission and Anticipated Discharge Date Admission Date: March 25, 2023 Supervising Physician Co-Signing Physician Notes Patient was seen and examined at bedside. Patient was managed for A-fib with RVR, medication has been optimized per cardiology. Patient is currently being treated for UTI and urinary retention. Patient is awaiting placement. I have seen and examined the patient and have discussed the case with the provider above. I agree with the assessment and plan as stated. Subjective Patient was seen and examined in room 363. Follow-up weakness and fall. He has lying in bed. He was sleeping but easily aroused. He denies fever, chills, sweats, lightheadedness, dizziness, chest pain, shortness of breath, nausea, vomiting or abdominal pain. No nursing concerns. Review of Systems Review of Systems: All systems reviewed & are unremarkable except as noted in HPI & below Physical Exam Physical Exam: Gen: Elderly, chronically ill appearing, WD/WN, NAD, A&O to self and place HEENT: Normocephalic, atraumatic, conjunctivae moist, sclerae anicteric, mucous membranes dry. Lung: Clear to Auscultation bilaterally, no wheezes/rales/rhonchi Heart: IRR?IRR no murmurs, rubs, or gallops Abdomen: Soft, NT, ND +BS x 4 Extremities: No edema Skin: Warm, no rash, negative turgor. Results & Data Results & Data Vital Signs (Past 12 Hours) Vital Signs Temp Pulse Resp BP Pulse Ox O2 Del Method 04/07/23 07:57 36.5 C 69 18 108/63 93 Room Air Medications Administered Current Inpatient Medications Acetaminophen (Acetaminophen 325 Mg Tab) 650 mg PO Q4H PRN PRN Reason: Pain or Fever Stop: 04/24/23 18:14 Last Admin: 04/06/23 20:04 Dose: 650 mg Aspirin (Aspirin 81 Mg Ectab) 81 mg PO DAILY [facility] Stop: 04/25/23 08:59 Last Admin: 04/07/23 08:43 Dose: 81 mg Atorvastatin Calcium (Atorvastatin 40 Mg Tab) 40 mg PO QAM [facility] Stop: 04/26/23 08:59 Last Admin: 04/07/23 08:43 Dose: 40 mg Bisacodyl (Bisacodyl 10 Mg Supp) 10 mg [place] DAILY PRN PRN Reason: Constipation Stop: 05/04/23 08:05 Last Admin: 04/04/23 18:23 Dose: 10 mg Digoxin (Digoxin 0.125 Mg Tab) 0.125 mg PO DAILY@1600 [facility] Stop: 05/03/23 15:59 Last Admin: 04/06/23 17:31 Dose: 0.125 mg Diltiazem HCl (Diltiazem Hcl 240 Mg Capcr) 240 mg PO QAM [facility] Stop: 05/04/23 08:59 Last Admin: 04/07/23 08:43 Dose: 240 mg Heparin Sodium (Porcine) (Heparin Sod 5,000 Unit/0.5 Ml Vial) 5,000 units SQ Q12 [facility] Stop: 04/24/23 20:59 Last Admin: 04/07/23 08:42 Dose: 5,000 units Ceftriaxone Sodium 2,000 mg/ (Dextrose) 50 mls @ 100 mls/hr IV Q24H [facility]; Protocol Stop: 04/16/23 03:29 Last Infusion: 04/07/23 04:37 Dose: Infused Sodium Chloride (Nss) 1,000 mls @ 50 mls/hr IV .Q20H [facility] Stop: 05/06/23 18:59 Last Admin: 04/07/23 14:56 Dose: 50 mls/hr Levalbuterol HCl (Levalbuterol 1.25 Mg/3 Ml Neb) 1.25 mg NEB Q6H PRN; Protocol PRN Reason: Shortness Of Breath Or Wheezing Stop: 04/24/23 20:59 Melatonin (Melatonin 3 Mg Tab) 3 mg PO HS PRN PRN Reason: Sleep Stop: 05/06/23 01:34 Last Admin: 04/06/23 20:04 Dose: 3 mg Metoprolol Succinate (Metoprolol Succ 25mg Ext Rel Tab) 25 mg PO BID [facility] Stop: 05/02/23 10:44 Last Admin: 04/07/23 08:43 Dose: 25 mg Ondansetron HCl (Ondansetron Inj 2 Mg/Ml 2 Ml Vial) 4 mg IV Q6H PRN PRN Reason: Nausea Stop: 04/24/23 18:14 Pantoprazole Sodium (Pantoprazole 40 Mg Tab) 40 mg PO DAILY [facility] Stop: 04/25/23 08:59 Last Admin: 04/07/23 08:43 Dose: 40 mg Phenazopyridine HCl (Phenazopyridine Hcl 100 Mg Tab) 100 mg PO TID PRN PRN Reason: bladder pain Stop: 05/06/23 01:34 Last Admin: 04/07/23 08:42 Dose: 100 mg Polyethylene Glycol (Polyethylene (Miralax) 17 Gm Pack) 17 gm PO DAILY PRN PRN Reason: Constipation Stop: 04/24/23 18:14
[2023-04-07] MEDS: DIGOXIN 0.125 MG TAB PO SCH (16:21)
[2023-04-08] MEDS: cefTRIAXone SODIUM 2,000 MG in DEXTROSE 5 % MINI-B 50 ML IV SCH (02:50)
[2023-04-08] MEDS: SODIUM CHLORIDE 0.9% 1,000 ML IV SCH (06:13)
[2023-04-08] MEDS: METOPROLOL SUCC 25MG EXT REL TAB PO SCH ×2 (08:58→20:39)
[2023-04-08] MEDS: HEPARIN SOD 5,000 UNIT/0.5 ML VIAL SQ SCH ×2 (08:59→20:39)
[2023-04-08] MEDS: ATORVASTATIN 40 MG TAB PO SCH (08:59)
[2023-04-08] MEDS: dilTIAZem HCL 240 MG CAPCR PO SCH (08:59)
[2023-04-08] MEDS: PANTOprazole 40 MG TAB PO SCH (09:00)
[2023-04-08] MEDS: ASPIRIN 81 MG ECTAB PO SCH (09:00)
--- NOTE | 2023-04-08 14:31 | Hospitalist Progress Note ---
Date of Service April 08, 2023 Assessment & Plan (1) Weakness: Plan Patient is 83 y/o M with PMH cerebellar degeneration, CKD III, HTN, dyslipidemia, GERD, asthma, BPH, depression presented to ER from home with c/o being found on the floor. Patient lives at home; is his primary caregiver. He is being managed for the following: Weakness: Fall: Cerebellar degeneration: CT Head on admission; small posterior right parietal scalp contusion. No acute intracranial abnormality or calvarial fracture. Involutional changes with chronic microvascular ischemic disease. There is a new hypodense focus in the anterior superior left frontal lobe which is nonspecific and possibly represents encephalomalacia from a chronic insult PT OT eval Fall precautions, aspiration precautions Prior attending - Discussed with patient's and daughter at bedside on March 28, 2023. It has been increasing difficulty in taking care of the patient over the last several weeks. She reports that patient's physical condition has declined over the course of months as well. Plan to d/c to Rehab tomorrow Elevated lactic acid level: Leukocytosis present at admission, procalcitonin was negative. Blood culture came back negative. CXR with no acute finding. Respiratory BioFire was negative. Patient was initially placed on empiric antibiotics with Rocephin which was discontinued subsequently as blood cultures were negative. Acute UTI:- RULED OUT: culture negative, d/c antibiotic Atrial fibrillation with RVR: In ER found to be in atrial fibrillation RVR on EKG Troponin: 20.3-->20.2. Likely elevated secondary to demand ischemia from A-fib RVR. Patient converted to normal sinus rhythm spontaneously. However, reverted back to atrial fibrillation with RVR. Echocardiogram showed EF of 50 to 55%; left atrium severely dilated. Cardiology evaled, patient currently on metoprolol and Cardizem. Digoxin added 04/03. Optimized meds. Not a candidate for anticoagulation due to frequent falls. off of telemetry monitoring. Other chronic medical conditions: Continue with/resume home meds as and when able. CKD stage IIIcreatinine around baseline. Monitor renal function Hypertension: Currently stable. Dyslipidemia: Continue simvastatin Asthma: Not on inhalers. Albuterol nebs as needed. Stable. GERD: Continue PPI DVT prophylaxis:-Heparin DNR/DNI Dispositionpatient lives at home with his prior to admission. Family unable to take care of pt and will need rehab, D/C tomorrow Pt was seen and examined in collaboration with Dr. Cloud, please see addendum A total of 40 minutes was spent coordinating, documenting, and providing care for this patient excluding time spent in the performance of separately billed services. This included personally viewing all current laboratories and imaging studies, medication reconciliation, outpatient chart review, and discussion with specialists. Admission and Anticipated Discharge Date Admission Date: March 25, 2023 Supervising Physician Co-Signing Physician Notes Patient was seen and examined at bedside. Patient was managed for A-fib with RVR, medication has been optimized per cardiology. Patient is currently being treated for UTI and urinary retention. Patient is awaiting placement. Is comfortable lying on the bed; not in distress. He denies headache, chest pain, shortness of breath or abdominal pain. Possible DC in a.m. to rehab. Discussed with patient's and daughter at bedside. Please note the above document was generated using voice recognition software. It may contain grammatical, syntax or spelling errors. Any formal questions or concerns about the content, text or information contained within the body of this dictation should be directly addressed to the provider for clarification Subjective Patient was seen and examined in room 363. Follow-up weakness and fall. He has lying in bed. He was sleeping but easily aroused. No acute concerns. Denies pain, sob, n/v. No nursing concerns reported. Review of Systems Review of Systems: All systems reviewed & are unremarkable except as noted in HPI & below Physical Exam Physical Exam: Gen: Elderly, chronically ill appearing, lying in bed, WD/WN, NAD, A&O to self and place HEENT: Normocephalic, atraumatic, conjunctivae moist Lung: normal resp rate, no w/r/r Heart: IRR/IRR no murmurs, rubs, or gallops Abdomen: Soft, NT, ND +BS x 4 Extremities: No edema Skin: Warm, no rash, negative turgor. Results & Data Results & Data Vital Signs (Past 12 Hours) Vital Signs Temp Pulse Resp BP Pulse Ox O2 Del Method 04/08/23 07:22 36.4 C L 72 18 108/67 94 Room Air Medications Administered Current Inpatient Medications Acetaminophen (Acetaminophen 325 Mg Tab) 650 mg PO Q4H PRN PRN Reason: Pain or Fever Stop: 04/24/23 18:14 Last Admin: 04/06/23 20:04 Dose: 650 mg Aspirin (Aspirin 81 Mg Ectab) 81 mg PO DAILY [facility] Stop: 04/25/23 08:59 Last Admin: 04/08/23 09:00 Dose: 81 mg Atorvastatin Calcium (Atorvastatin 40 Mg Tab) 40 mg PO QAM [facility] Stop: 04/26/23 08:59 Last Admin: 04/08/23 08:59 Dose: 40 mg Bisacodyl (Bisacodyl 10 Mg Supp) 10 mg [place] DAILY PRN PRN Reason: Constipation Stop: 05/04/23 08:05 Last Admin: 04/04/23 18:23 Dose: 10 mg Digoxin (Digoxin 0.125 Mg Tab) 0.125 mg PO DAILY@1600 [facility] Stop: 05/03/23 15:59 Last Admin: 04/07/23 16:21 Dose: 0.125 mg Diltiazem HCl (Diltiazem Hcl 240 Mg Capcr) 240 mg PO QAM [facility] Stop: 05/04/23 08:59 Last Admin: 04/08/23 08:59 Dose: 240 mg Heparin Sodium (Porcine) (Heparin Sod 5,000 Unit/0.5 Ml Vial) 5,000 units SQ Q12 [facility] Stop: 04/24/23 20:59 Last Admin: 04/08/23 08:59 Dose: 5,000 units Ceftriaxone Sodium 2,000 mg/ (Dextrose) 50 mls @ 100 mls/hr IV Q24H [facility]; Protocol Stop: 04/16/23 03:29 Last Infusion: 04/08/23 04:07 Dose: Infused Levalbuterol HCl (Levalbuterol 1.25 Mg/3 Ml Neb) 1.25 mg NEB Q6H PRN; Protocol PRN Reason: Shortness Of Breath Or Wheezing Stop: 04/24/23 20:59 Melatonin (Melatonin 3 Mg Tab) 3 mg PO HS PRN PRN Reason: Sleep Stop: 05/06/23 01:34 Last Admin: 04/06/23 20:04 Dose: 3 mg Metoprolol Succinate (Metoprolol Succ 25mg Ext Rel Tab) 25 mg PO BID [facility] Stop: 05/02/23 10:44 Last Admin: 04/08/23 08:58 Dose: 25 mg Ondansetron HCl (Ondansetron Inj 2 Mg/Ml 2 Ml Vial) 4 mg IV Q6H PRN PRN Reason: Nausea Stop: 04/24/23 18:14 Pantoprazole Sodium (Pantoprazole 40 Mg Tab) 40 mg PO DAILY [facility] Stop: 04/25/23 08:59 Last Admin: 04/08/23 09:00 Dose: 40 mg Phenazopyridine HCl (Phenazopyridine Hcl 100 Mg Tab) 100 mg PO TID PRN PRN Reason: bladder pain Stop: 05/06/23 01:34 Last Admin: 04/07/23 08:42 Dose: 100 mg Polyethylene Glycol (Polyethylene (Miralax) 17 Gm Pack) 17 gm PO DAILY PRN PRN Reason: Constipation Stop: 04/24/23 18:14
[2023-04-08] MEDS: DIGOXIN 0.125 MG TAB PO SCH (16:42)
[2023-04-09] MEDS: ACETAMINOPHEN 325 MG TAB PO PRN ×2 (00:18→08:00)
[2023-04-09] MEDS: MELATONIN 3 MG TAB PO PRN (00:19)
[2023-04-09] MEDS: PHENAZOPYRIDINE HCL 100 MG TAB PO PRN (01:39)
[2023-04-09] MEDS: ASPIRIN 81 MG ECTAB PO SCH (08:01)
[2023-04-09] MEDS: dilTIAZem HCL 240 MG CAPCR PO SCH (08:01)
[2023-04-09] MEDS: HEPARIN SOD 5,000 UNIT/0.5 ML VIAL SQ SCH (08:01)
[2023-04-09] MEDS: ATORVASTATIN 40 MG TAB PO SCH (08:01)
[2023-04-09] MEDS: METOPROLOL SUCC 25MG EXT REL TAB PO SCH (08:02)
[2023-04-09] MEDS: PANTOprazole 40 MG TAB PO SCH (08:02)
--- NOTE | 2023-04-09 13:55 | Discharge Summary ---
Date of Service April 09, 2023 Admission HPI Per Admitting Provider Patient is 83 y/o M with PMH cerebellar degeneration, CKD III, HTN, dyslipidemia, GERD, asthma, BPH, depression presented to ER from home with c/o being found on the floor. History obtained from patient's , daughter and outpatient review. 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 Typically is able to transfer himself out of wheelchair. In past patient was able to use his upper body strength and crawl on floor to go to the bathroom. reports yesterday patient was found on the floor. was unable to get him up so she covered with blanket. She is unsure how long he was on floor but states she thinks he slept in bed last night. States patient didn't eat yesterday. He seemed less responsive than usual per family past 2 days. He also more weak than usual. Today reports patient was in wheelchair sitting at table. She left room and went upstairs, when she returned patient patient was lying on the kitchen floor. Reports baseline intermittent cough. Denies noted choking episodes. States eats soft food as has poor dentition. states patient very shaky with eating and holding objects at baseline. Patient receiving [facility] at home care. has not noticed any fever, vomiting, diarrhea, noted SOB, rashes. Denies history of atrial fibrillation. Patient has POLST form that states DNR/DNI, no hydration, no antibiotics, no hospitalization. Discussed with patient's and daughter. reports she wants patient to have medications, antibiotics, IVF however does not want any invasive procedures. Admission Exam Per Admitting Provider General: Ill appearing, in no distress, weak Eyes: PERRL, conjunctivae normal, not pale, anicteric sclerae, EOM intact bilaterally ENMT: External ear and nose normal, oropharynx normal Respiratory: Normal respiratory effort, no respiratory distress, lungs clear to auscultation, no crackles and no wheezes Cardiovascular: Irregular, tachycardia S1 S2 Gastrointestinal (Abdomen): Abdomen is not distended, soft, non-tender to palpation, no guarding, no palpable hepatosplenomegaly, normal bowel sounds Musculoskeletal: No pedal edema Neurologic: Alert, non verbal. Occasionally follows simple commands (baseline per ), moves arms Principal Diagnosis Weakness: Fall: Cerebellar degeneration: Atrial fibrillation with RVR: Discharge Exam Constitutional: Awake, able to say his name. Not in any distress. Respiratory: Bilateral vesicular breath sound Cardiovascular: Irregular no murmur, no edema Vessels: no JVD or carotid bruit Chest: normal inspection of chest Abdomen: normal bowel sounds, soft, nontender, no hepatosplenomegaly Musculoskeletal: no cyanosis or clubbing, extremities motor strength 5/5. Bruises over his knees. Skin: no rashes, warm and dry normal turgor Neurologic: Awake, oriented to self. Able to follow simple commands. Discharge Data Allergies Allergy/AdvReac Type Severity Reaction Status Date / Time colchicine Allergy Unknown ` Verified 06/08/12 13:06 mold Allergy Unknown ` Verified 06/08/12 13:06 Consultations 03/25/23 14:43 ED Decision to Admit Stat 03/25/23 18:15 Consult Cardiology Routine Ordered Studies 03/25/23 12:51 CT head/brain wo con Stat 04/04/23 12:32 CT head/brain wo con Routine Hospital Course (1) Weakness: Plan Patient is 83 y/o M with PMH cerebellar degeneration, CKD III, HTN, dyslipidemia, GERD, asthma, BPH, depression presented to ER from home with c/o being found on the floor. Patient lives at home; is his primary caregiver. He was managed for the following during the hospitalization: Weakness: Fall: Cerebellar degeneration: CT Head on admission; small posterior right parietal scalp contusion. No acute intracranial abnormality or calvarial fracture. Involutional changes with chronic microvascular ischemic disease During the hospitalization, PT OT evaluation was done. Patient was discharged to rehab as per recommendation Atrial fibrillation with RVR: In ER found to be in atrial fibrillation RVR on EKG Troponin: 20.3-->20.2. Likely elevated secondary to demand ischemia from A-fib RVR. Patient converted to normal sinus rhythm spontaneously. However, reverted back to atrial fibrillation with RVR. Echocardiogram showed EF of 50 to 55%; left atrium severely dilated. During the hospitalization, cardiology was consulted. Patient was started on Cardizem and metoprolol at discharge. He was not placed on anticoagulation due to risks of falls. Please note the above document was generated using voice recognition software. It may contain grammatical, syntax or spelling errors. Any formal questions or concerns about the content, text or information contained within the body of this dictation should be directly addressed to the provider for clarification Total Time Total Time Spent Total Time Spent (In Minutes): 35 Total Time Includes: Examination of the Patient, Discharge Planning, Medication Reconciliation, Communication With Other Providers and Other Discharge Plan Discharge Items Patient Disposition: Transfer [facility] Reason For Visit: AFIB Discharge Diagnosis: Weakness Fall Cerebellar degeneration Atrial fibrillation with RVR Condition on Discharge: Fair Activity: Resume your previous activity Non-emergency contact: Primary Care Provider Call non-emergency contact if: you have any medication questions, your symptoms worsen, your pain is not controlled, your pain is worsening, your pain is unusual for you, your pain is concerning for you, you have a fever and your temperature is above 101 Follow-up/Referrals: Kamari Strong MD [Primary Care Provider] - Diet: Regular Diet Texture: Pureed (blended smooth) Addtl Attending Provider Instructions: MEDICATION CHANGES: Stop Taking: * Losartan * Simvastatin New Medications * Atorvastatin 40 mg daily * Digoxin 125 mcg daily at 1600 * Diltiazem 240 mg capsule extended release once daily * Metoprolol succinate 25 mg by mouth twice daily Continue all other medications as prescribed. Remove Howard on April 12, 2023 and do a trial of void. Make an appointment with urology RECOMMENDATIONS FOR FOLLOW-UP: Please follow up with Primary Care Provider upon discharge from rehab. Please follow up with science writer upon discharge from rehab. Recommend repeat CBC, BMP, Mag in 1 week. OTHER INSTRUCTIONS: Seek medical attention if you have: * temperature above 101 * chest pain or trouble breathing * abdominal pain, nausea, vomiting * diarrhea, dark stools or bloody stools * any unanswered questions or concerns Call 911 if symptoms are severe. Please take good care of yourself. It has been a pleasure taking care of you. Please take care of yourself. If you have any questions regarding your recent hospitalization please contact [facility] and request Mario Huber @ [phone]. Pending Studies at Discharge: No Stand-Alone Forms: My [facility] Skilled Items Patient informed of condition?: Yes DNR: Yes Discharge Level of Care: Skilled Communicable Disease: No Discharge Prognosis: Stable Lines: None Urinary Catheter: Yes Medications and DC Order Prescriptions: New diltiazem HCl 240 mg Capsule,Extended Release 24hr 240 mg PO QAM Qty: 30 0RF digoxin [Digitek] 125 mcg (0.125 mg) Tablet 0.125 mg PO DAILY@1600 Qty: 30 0RF metoprolol succinate 25 mg Tablet Extended Release 24 Hr 25 mg PO BID Qty: 60 0RF atorvastatin 40 mg Tablet 40 mg PO QAM Qty: 30 0RF Continued omeprazole 40 mg capsule,delayed release(DR/EC) 40 mg PO DAILY Qty: 30 0RF aspirin 81 mg Tablet,Delayed Release (Dr/Ec) 81 mg PO DAILY Qty: 30 0RF Discontinued losartan 50 mg tablet 50 mg PO DAILY simvastatin 40 mg tablet 40 mg PO HS Discharge Orders: Discharge Order (Routine); Ordered 04/09/23 Ordered By: Beni Kraus/Other Patient Handouts: AFib Dc Admission Data Admit Date/Time: 03/25/23 15:55 Attending Provider: Beni Cloud Admit Provider: Jhoana Knox I. Primary Care Provider: Kamari Strong Other Providers: Aaron Mota at [place]; Jessie,; Aaron Reeves; Jhoana Knox I.; Db Langston Other Interventions: Discharge Summary Assessment (RN) Last Done: 04/09/23 12:05
== END 2023-04-09 11:51 | DRG 309 ==
LOC: ED 12:41 → SUATTDRO 15:55 → 2S 15:55 → 3W 04-04 15:10